=== PATIENT | female | born 1985 ===

== ENCOUNTER 2018-09-25 13:59 | Inpatient (IN) | payer OTHER, MEDICAID, SELFPAY ==
[2018-09-25] VITALS (30 sets, daily range): BP systolic 88–177; BP diastolic 46–125; PULSE 113–139; RESP 12–38; TEMP 36.2–36.7; O2SAT 96–100; BMI 24.5
--- NOTE | 2018-09-25 | DI.RAD.S_ITS ---
PROCEDURE: XR CHEST 1V INDICATIONS: ET TUBE PLACEMENT TECHNIQUE: One view of the chest was acquired. COMPARISON: [facility], , XR CHEST 1V, 09/25/2018, 15:16. FINDINGS: Surgical changes and devices: ET tube tip is approximately 6.7 cm above the onur. Lungs and pleura: Lungs are clear. No pleural effusions or pneumothorax. Mediastinum: Mediastinal contours appear normal. Heart size is normal. Bones and chest wall: No suspicious bony lesions. Overlying soft tissues appear unremarkable. IMPRESSION: ET tube in satisfactory position. No evidence acute pulmonary process. Dictated by: Sergey Steel M.D. on 09/25/2018 at 19:23 Approved by: Sergey Steel M.D. on 09/25/2018 at 19:24
[2018-09-25] MEDS: ALBUTEROL 2.5 MG/3 ML NEB (ADULT) INH ×5 (14:10→22:49)
[2018-09-25] MEDS: ALBUTEROL/IPRATROPIUM 3 ML AMPUL INH ×4 (14:11→22:48)
--- NOTE | 2018-09-25 14:11 | PC.NURSE ---
pt unable to talk related to shortness of breath, will do triage when she is better.
--- NOTE | 2018-09-25 14:13 | ED.ASTHMA ---
HPI - Asthma <REINIER Davidson - Last Filed: 09/25/18 15:59> General Chief Complaint: Asthma Stated Complaint: Asthma attack Time Seen by Provider: 09/25/18 14:09 Source: patient Mode of arrival: ambulatory Limitations: no limitations History of Present Illness HPI Narrative: woke up with wheezing and asthma attack, tried inhaler first, no better, did neb tx, no better MD complaint: asthma attack Onset (ago): hour(s) Severity: severe Context: none known Associated symptoms: none Treatments Prior to Arrival: inhaled bronchodilator Related Data Current Asthma Therapy: inhaled bronchodilator Home Medications Medication Instructions Recorded Confirmed albuterol sulfate 09/25/18 lorazepam 1 mg PO QD-BID PRN 09/25/18 09/25/18 prednisone 09/25/18 Previous Rx's Medication Instructions Recorded clindamycin HCl 150 mg PO Q6H 7 Days #0 cap 01/21/16 albuterol sulfate [Proventil HFA] 0 IH SEE INSTRUCTIONS #2 ea 06/03/16 Allergies Allergy/AdvReac Type Severity Reaction Status Date / Time doxycycline Allergy Mild INFLAMED Unverified 09/15/17 11:45 IV SITE; HIVES tetracycline Allergy Mild RASH Unverified 09/15/17 11:45 hydromorphone AdvReac Mild SHAKINESS/D Unverified 09/15/17 11:45 IZZINESS morphine AdvReac Mild UPSET Unverified 09/15/17 11:45 STOMACH Review of Systems <REINIER Davidson - Last Filed: 09/25/18 15:59> Review of Systems ROS Unobtainable: All systems reviewed & are unremarkable except as noted in HPI and below Constitutional Reports as per HPI, Reports system reviewed and no additional complaints, except as docu, Denies fever(s) and Denies headache(s) Eyes Denies eye discharge, Denies irritation and Denies itchy eyes ENT Ears, Nose, Mouth, and Throat: Reports as per HPI, Denies dental pain, Denies vertigo, Denies dizziness, Denies ear discharge, Reports otalgia, Denies facial pain, Denies headache(s), Denies hearing loss, Denies nasal congestion, Denies nasal discharge, Denies neck pain, Denies sinus pain, Denies sinus pressure and Denies sore throat Cardiovascular Denies dyspnea Respiratory Denies dyspnea Musculoskeletal Denies neck pain Neurologic Denies vertigo, Denies dizziness and Denies headache(s) Allergic/Immunologic Denies itchy eyes Exam <Sharda REINIER Bellamy - Last Filed: 09/25/18 15:59> Initial Vital Signs Initial Vital Signs: Vital Signs Temperature 97.2 F L 09/25/18 14:10 Pulse Rate 124 H 09/25/18 14:10 Respiratory Rate 26 H 09/25/18 14:10 Blood Pressure 149/114 H 09/25/18 14:10 Pulse Oximetry 99 09/25/18 14:10 Const General: cooperative, healthy appearing, comfortable, well developed and well groomed Nutritional Appearance: average body habitus Orientation: alert, awake and oriented x3 HENMT Head: normal to inspection and normocephalic Ears: hearing grossly normal bilaterally, external ears normal, TM's normal bilaterally and mastoids normal Nose: external nose normal and nares normal Face and sinus: normal facial exam, sinuses nontender and face symmetric Mouth: oral mucosae normal, lip normal, tongue normal, oropharynx normal and moist mucous membranes Teeth and gingiva: dentition normal and gingiva normal Throat: posterior oropharynx normal, tonsils normal and uvula midline Eyes General: appearance normal, both eyes and all related structures Visual Dave: normal visual dave by confrontation Eyelids: eyelids normal Conjunctivae: conjunctivae normal Sclera: sclerae normal Pupils: PERRL EOM: EOM intact bilaterally Neck Neck: normal visual inspection, full ROM, no meningeal signs, trachea midline, supple and No lymphadenopathy Chest Chest: normal inspection of the chest Resp Effort & Inspection: normal respiratory effort, not able to speak in complete sentences and labored Auscultation: clear to auscultation bilaterally and wheezes expiratory wheezes, inspiratory wheezes and scattered wheezes Cardio Rate: regular rate and tachycardic (HR 120's) Heart Sounds: S1 normal and S2 normal Back/Spine/Pelvis Cervical Spine: cervical ROM normal Thoracic/Lumbar Spine: thoraco-lumbar ROM normal Skin General: no rashes or lesions noted, elasticity normal, turgor normal and dry skin Neuro General: alert, awake, oriented x3 and meningeal signs present Cognition: normal cognition Speech: speech normal Gait: normal gait Motor: muscle tone normal throughout Sensory Exam: no sensory deficits noted Extrem General: normal to inspection and full ROM Psych Appearance: grossly normal and well kempt Mental Status: mental status grossly normal Speech and Movement: speech and movement normal Mood: congruent mood Affect: normal affect Attitude: cooperative Thought Process: normal Thought Content: normal Judgment: judgment good <Jennyfer Cardoza DO - Last Filed: 09/26/18 07:45> Initial Vital Signs Initial Vital Signs: Vital Signs Temperature 97.2 F L 09/25/18 14:10 Pulse Rate 124 H 09/25/18 14:10 Respiratory Rate 26 H 09/25/18 14:10 Blood Pressure 149/114 H 09/25/18 14:10 Pulse Oximetry 99 09/25/18 14:10 PFSH <REINIER Davidson - Last Filed: 09/25/18 15:59> Medical History Anxiety (Acute) Asthma (Acute) Social History Smoking Status: Current every day smoker alcohol intake: never Social History Smoking Status: Current every day smoker alcohol intake: never Course <REINIER Davidson - Last Filed: 09/25/18 15:59> Course Narrative: RT at bedside upon entering room and already had neb tx going, giving pt 1hr long albuterol with atrovent, PO100% 1420 nurse and RT, pt is starting to have anxiety attack and is requesting theophylline saying that is what helped her in the past 1435 back at bedside with Dr Cardoza, pt's resp are more labored, pt now diaphoretic, audible wheezing/stridoring, and has the triangle neck muscle use attempting to breathe, RT at bedside still, pt will be moved to Room 2 for closer monitoring and Dr Cardoza will assume care at this point Orders Ordered: ED Orders 09/26/18 XR chest 1V Stat Blood Culture Routine 09/26/18 02:15 Basic Metabolic Panel Routine Complete Blood Count AUTO DIFF Routine Lactate (Lactic Acid) Stat Procalcitonin Stat 09/26/18 04:05 Blood Culture Stat 09/26/18 05:16 Arterial Blood Gas Urgent 09/26/18 07:24 CBC [Complete Blood Count AUTO DIFF] Stat Comprehensive Metabolic Panel Stat Albuterol (Ventolin) 2.5 mg INH [id number] PRN PRN Reason: Shortness Of Breath Last Admin: 09/26/18 05:35 Dose: 2.5 mg Admin: 09/26/18 03:26 Dose: 2.5 mg Admin: 09/26/18 00:54 Dose: 2.5 mg Admin: 09/25/18 22:49 Dose: 2.5 mg Admin: 09/25/18 19:58 Dose: 2.5 mg Albuterol/Ipratropium (Duoneb) 3 ml INH [id number] RILEY Last Admin: 09/26/18 07:41 Dose: 3 ml Admin: 09/26/18 03:26 Dose: 3 ml Admin: 09/25/18 22:48 Dose: 3 ml Admin: 09/25/18 19:58 Dose: 3 ml Enoxaparin Sodium (Lovenox) 40 mg SUBCUT DAILY RILEY Famotidine (Pepcid) 20 mg in 50 mls @ 200 mls/hr IV BID RILEY Last Infusion: 09/26/18 07:27 Dose: 0 mls/hr Admin: 09/25/18 22:20 Dose: 200 mls/hr Propofol (Propofol) 1,000 mg in 100 mls @ 2.136 mls/hr IV TITRATE RILEY; Protocol Last Titration: 09/26/18 07:29 Dose: 60 mcg/kg/min, 25.632 mls/hr Admin: 09/26/18 05:54 Dose: 55 mcg/kg/min, 23.496 mls/hr Titration: 09/26/18 05:54 Dose: 55 mcg/kg/min, 23.496 mls/hr Admin: 09/26/18 01:53 Dose: 55 mcg/kg/min, 23.496 mls/hr Titration: 09/26/18 01:53 Dose: 55 mcg/kg/min, 23.496 mls/hr Admin: 09/25/18 22:19 Dose: 55 mcg/kg/min, 23.496 mls/hr Titration: 09/25/18 22:19 Dose: 55 mcg/kg/min, 23.496 mls/hr Titration: 09/25/18 19:50 Dose: 55 mcg/kg/min, 23.496 mls/hr Titration: 09/25/18 19:15 Dose: 40 mcg/kg/min, 17.088 mls/hr Admin: 09/25/18 18:50 Dose: 20 mcg/kg/min, 8.544 mls/hr Sodium Chloride (Normal Saline 0.9%) 1,000 mls @ 125 mls/hr IV CONT RILEY Last Admin: 09/26/18 07:41 Dose: 125 mls/hr Admin: 09/26/18 06:55 Dose: Not Given Methylprednisolone (Solu-Medrol 125 Mg Vial) 80 mg IV Q8H RILEY Last Admin: 09/26/18 02:46 Dose: 80 mg Admin: 09/25/18 20:20 Dose: 80 mg Midazolam HCl (Versed) 2 mg IV Q2H PRN PRN Reason: Agitation Last Admin: 09/26/18 07:15 Dose: 2 mg Admin: 09/26/18 05:07 Dose: 2 mg Morphine Sulfate (Morphine) 2 mg IV Q2HR PRN PRN Reason: pain Last Admin: 09/26/18 00:12 Dose: 2 mg Admin: 09/25/18 19:56 Dose: 2 mg Discontinued Medications Albuterol (Ventolin) 2.5 mg INH NOW ONE Stop: 09/25/18 14:08 Last Admin: 09/25/18 14:10 Dose: 2.5 mg Albuterol (Ventolin) 2.5 mg INH NOW ONE Stop: 09/25/18 14:09 Last Admin: 09/25/18 14:10 Dose: 2.5 mg Albuterol (Ventolin) 2.5 mg INH NOW ONE Stop: 09/25/18 14:10 Last Admin: 09/25/18 14:10 Dose: 2.5 mg Albuterol/Ipratropium (Duoneb) 3 ml INH NOW ONE Stop: 09/25/18 14:10 Last Admin: 09/25/18 14:11 Dose: 3 ml Albuterol/Ipratropium (Duoneb) 3 ml INH NOW ONE Stop: 09/25/18 14:22 Last Admin: 09/25/18 14:22 Dose: 3 ml Albuterol/Ipratropium (Duoneb) 9 ml INH NOW ONE Stop: 09/25/18 14:33 Last Admin: 09/25/18 14:33 Dose: 9 ml Albuterol/Ipratropium (Duoneb) 3 ml INH NOW ONE Stop: 09/25/18 14:43 Fentanyl (Sublimaze) 100 mcg IV NOW ONE Stop: 09/25/18 18:51 Last Admin: 09/25/18 18:51 Dose: 100 mcg Magnesium Sulfate (Magnesium Sulfate) 2 gm in 50 mls @ 25 mls/hr IV NOW ONE Stop: 09/25/18 16:41 Last Infusion: 09/25/18 17:20 Dose: 25 mls/hr Admin: 09/25/18 15:05 Dose: 25 mls/hr Sodium Chloride (Normal Saline 0.9%) 1,000 mls @ 1,000 mls/hr IV BOLUS ONE Stop: 09/25/18 15:41 Last Infusion: 09/25/18 17:20 Dose: 250 mls/hr Admin: 09/25/18 15:04 Dose: 1,000 mls/hr Sodium Chloride (Normal Saline 0.9%) 1,000 mls @ 100 mls/hr IV CONT RILEY Last Infusion: 09/26/18 07:34 Dose: 0 mls/hr Admin: 09/26/18 06:00 Dose: 100 mls/hr Admin: 09/25/18 20:13 Dose: Not Given Ceftriaxone Sodium/Dextrose (Rocephin) 2 gm in 50 mls @ 100 mls/hr IV Q24H [facility] Last Infusion: 09/26/18 07:28 Dose: 0 mls/hr Admin: 09/26/18 04:21 Dose: 100 mls/hr Sodium Chloride (Normal Saline 0.9%) 1,000 mls @ 1,000 mls/hr IV BOLUS ONE Stop: 09/26/18 04:42 Last Infusion: 09/26/18 07:34 Dose: 0 mls/hr Admin: 09/26/18 04:12 Dose: 1,000 mls/hr Ceftriaxone Sodium 2,000 mg/ (Sodium Chloride) 100 mls @ 200 mls/hr IV Q24H [facility] Last Admin: 09/26/18 07:28 Dose: Not Given Lorazepam (Ativan) 1 mg IV NOW ONE Stop: 09/25/18 14:25 Last Admin: 09/25/18 14:28 Dose: Not Given Methylprednisolone (Solu-Medrol 125 Mg Vial) 125 mg IV NOW ONE Stop: 09/25/18 14:15 Last Admin: 09/25/18 14:23 Dose: 125 mg Midazolam HCl (Versed) 2 mg IV Q2H PRN PRN Reason: Agitation Last Admin: 09/26/18 02:47 Dose: 2 mg Admin: 09/26/18 00:52 Dose: 2 mg Admin: 09/25/18 22:49 Dose: 2 mg Admin: 09/25/18 20:46 Dose: 2 mg Propofol (Diprivan) 200 mg IV NOW ONE Stop: 09/25/18 18:46 Last Admin: 09/25/18 18:45 Dose: 200 mg Rocuronium [place] (Zemuron) 20 mg IV NOW ONE Stop: 09/25/18 18:50 Last Admin: 09/25/18 18:49 Dose: 20 mg Succinylcholine Chloride (Quelicin) 160 mg IV NOW ONE Stop: 09/25/18 18:46 Last Admin: 09/25/18 18:45 Dose: 160 mg Theophylline (Respbid Er) 300 mg PO NOW ONE Stop: 09/25/18 17:27 Last Admin: 09/25/18 17:46 Dose: 300 mg Vital Signs - 8 hr 09/26/18 00:00 09/26/18 01:37 09/26/18 02:03 Temperature 97.3 F L 97.8 F 97.6 F Pulse Rate 112 H 117 H 113 H Respiratory Rate 15 15 15 Blood Pressure 103/54 L 99/58 L 99/50 L Pulse Oximetry 100 100 100 09/26/18 03:00 09/26/18 04:03 09/26/18 05:08 Temperature 97.7 F Pulse Rate 116 H 119 H 123 H Respiratory Rate 17 21 Blood Pressure 104/51 L 109/67 122/76 Pulse Oximetry 100 99 100 09/26/18 06:03 Temperature 98.1 F Pulse Rate 121 H Respiratory Rate 15 Blood Pressure 113/48 L Pulse Oximetry 100 <Jennyfer Cardoza, - Last Filed: 09/26/18 07:45> Orders Ordered: ED Orders 09/26/18 XR chest 1V Stat Blood Culture Routine 09/26/18 02:15 Basic Metabolic Panel Routine Complete Blood Count AUTO DIFF Routine Lactate (Lactic Acid) Stat Procalcitonin Stat 09/26/18 04:05 Blood Culture Stat 09/26/18 05:16 Arterial Blood Gas Urgent 09/26/18 07:24 CBC [Complete Blood Count AUTO DIFF] Stat Comprehensive Metabolic Panel Stat Albuterol (Ventolin) 2.5 mg INH [id number] PRN PRN Reason: Shortness Of Breath Last Admin: 09/26/18 05:35 Dose: 2.5 mg Admin: 09/26/18 03:26 Dose: 2.5 mg Admin: 09/26/18 00:54 Dose: 2.5 mg Admin: 09/25/18 22:49 Dose: 2.5 mg Admin: 09/25/18 19:58 Dose: 2.5 mg Albuterol/Ipratropium (Duoneb) 3 ml INH [id number] RILEY Last Admin: 09/26/18 07:41 Dose: 3 ml Admin: 09/26/18 03:26 Dose: 3 ml Admin: 09/25/18 22:48 Dose: 3 ml Admin: 09/25/18 19:58 Dose: 3 ml Enoxaparin Sodium (Lovenox) 40 mg SUBCUT DAILY RILEY Famotidine (Pepcid) 20 mg in 50 mls @ 200 mls/hr IV BID RILEY Last Infusion: 09/26/18 07:27 Dose: 0 mls/hr Admin: 09/25/18 22:20 Dose: 200 mls/hr Propofol (Propofol) 1,000 mg in 100 mls @ 2.136 mls/hr IV TITRATE RILEY; Protocol Last Titration: 09/26/18 07:29 Dose: 60 mcg/kg/min, 25.632 mls/hr Admin: 09/26/18 05:54 Dose: 55 mcg/kg/min, 23.496 mls/hr Titration: 09/26/18 05:54 Dose: 55 mcg/kg/min, 23.496 mls/hr Admin: 09/26/18 01:53 Dose: 55 mcg/kg/min, 23.496 mls/hr Titration: 09/26/18 01:53 Dose: 55 mcg/kg/min, 23.496 mls/hr Admin: 09/25/18 22:19 Dose: 55 mcg/kg/min, 23.496 mls/hr Titration: 09/25/18 22:19 Dose: 55 mcg/kg/min, 23.496 mls/hr Titration: 09/25/18 19:50 Dose: 55 mcg/kg/min, 23.496 mls/hr Titration: 09/25/18 19:15 Dose: 40 mcg/kg/min, 17.088 mls/hr Admin: 09/25/18 18:50 Dose: 20 mcg/kg/min, 8.544 mls/hr Sodium Chloride (Normal Saline 0.9%) 1,000 mls @ 125 mls/hr IV CONT RILEY Last Admin: 09/26/18 07:41 Dose: 125 mls/hr Admin: 09/26/18 06:55 Dose: Not Given Methylprednisolone (Solu-Medrol 125 Mg Vial) 80 mg IV Q8H RILEY Last Admin: 09/26/18 02:46 Dose: 80 mg Admin: 09/25/18 20:20 Dose: 80 mg Midazolam HCl (Versed) 2 mg IV Q2H PRN PRN Reason: Agitation Last Admin: 09/26/18 07:15 Dose: 2 mg Admin: 09/26/18 05:07 Dose: 2 mg Morphine Sulfate (Morphine) 2 mg IV Q2HR PRN PRN Reason: pain Last Admin: 09/26/18 00:12 Dose: 2 mg Admin: 09/25/18 19:56 Dose: 2 mg Discontinued Medications Albuterol (Ventolin) 2.5 mg INH NOW ONE Stop: 09/25/18 14:08 Last Admin: 09/25/18 14:10 Dose: 2.5 mg Albuterol (Ventolin) 2.5 mg INH NOW ONE Stop: 09/25/18 14:09 Last Admin: 09/25/18 14:10 Dose: 2.5 mg Albuterol (Ventolin) 2.5 mg INH NOW ONE Stop: 09/25/18 14:10 Last Admin: 09/25/18 14:10 Dose: 2.5 mg Albuterol/Ipratropium (Duoneb) 3 ml INH NOW ONE Stop: 09/25/18 14:10 Last Admin: 09/25/18 14:11 Dose: 3 ml Albuterol/Ipratropium (Duoneb) 3 ml INH NOW ONE Stop: 09/25/18 14:22 Last Admin: 09/25/18 14:22 Dose: 3 ml Albuterol/Ipratropium (Duoneb) 9 ml INH NOW ONE Stop: 09/25/18 14:33 Last Admin: 09/25/18 14:33 Dose: 9 ml Albuterol/Ipratropium (Duoneb) 3 ml INH NOW ONE Stop: 09/25/18 14:43 Fentanyl (Sublimaze) 100 mcg IV NOW ONE Stop: 09/25/18 18:51 Last Admin: 09/25/18 18:51 Dose: 100 mcg Magnesium Sulfate (Magnesium Sulfate) 2 gm in 50 mls @ 25 mls/hr IV NOW ONE Stop: 09/25/18 16:41 Last Infusion: 09/25/18 17:20 Dose: 25 mls/hr Admin: 09/25/18 15:05 Dose: 25 mls/hr Sodium Chloride (Normal Saline 0.9%) 1,000 mls @ 1,000 mls/hr IV BOLUS ONE Stop: 09/25/18 15:41 Last Infusion: 09/25/18 17:20 Dose: 250 mls/hr Admin: 09/25/18 15:04 Dose: 1,000 mls/hr Sodium Chloride (Normal Saline 0.9%) 1,000 mls @ 100 mls/hr IV CONT RILEY Last Infusion: 09/26/18 07:34 Dose: 0 mls/hr Admin: 09/26/18 06:00 Dose: 100 mls/hr Admin: 09/25/18 20:13 Dose: Not Given Ceftriaxone Sodium/Dextrose (Rocephin) 2 gm in 50 mls @ 100 mls/hr IV Q24H RILEY Last Infusion: 09/26/18 07:28 Dose: 0 mls/hr Admin: 09/26/18 04:21 Dose: 100 mls/hr Sodium Chloride (Normal Saline 0.9%) 1,000 mls @ 1,000 mls/hr IV BOLUS ONE Stop: 09/26/18 04:42 Last Infusion: 09/26/18 07:34 Dose: 0 mls/hr Admin: 09/26/18 04:12 Dose: 1,000 mls/hr Ceftriaxone Sodium 2,000 mg/ (Sodium Chloride) 100 mls @ 200 mls/hr IV Q24H [facility] Last Admin: 09/26/18 07:28 Dose: Not Given Lorazepam (Ativan) 1 mg IV NOW ONE Stop: 09/25/18 14:25 Last Admin: 09/25/18 14:28 Dose: Not Given Methylprednisolone (Solu-Medrol 125 Mg Vial) 125 mg IV NOW ONE Stop: 09/25/18 14:15 Last Admin: 09/25/18 14:23 Dose: 125 mg Midazolam HCl (Versed) 2 mg IV Q2H PRN PRN Reason: Agitation Last Admin: 09/26/18 02:47 Dose: 2 mg Admin: 09/26/18 00:52 Dose: 2 mg Admin: 09/25/18 22:49 Dose: 2 mg Admin: 09/25/18 20:46 Dose: 2 mg Propofol (Diprivan) 200 mg IV NOW ONE Stop: 09/25/18 18:46 Last Admin: 09/25/18 18:45 Dose: 200 mg Rocuronium [place] (Zemuron) 20 mg IV NOW ONE Stop: 09/25/18 18:50 Last Admin: 09/25/18 18:49 Dose: 20 mg Succinylcholine Chloride (Quelicin) 160 mg IV NOW ONE Stop: 09/25/18 18:46 Last Admin: 09/25/18 18:45 Dose: 160 mg Theophylline (Respbid Er) 300 mg PO NOW ONE Stop: 09/25/18 17:27 Last Admin: 09/25/18 17:46 Dose: 300 mg Vital Signs - 8 hr 09/26/18 00:00 09/26/18 01:37 09/26/18 02:03 Temperature 97.3 F L 97.8 F 97.6 F Pulse Rate 112 H 117 H 113 H Respiratory Rate 15 15 15 Blood Pressure 103/54 L 99/58 L 99/50 L Pulse Oximetry 100 100 100 09/26/18 03:00 09/26/18 04:03 09/26/18 05:08 Temperature 97.7 F Pulse Rate 116 H 119 H 123 H Respiratory Rate 17 21 Blood Pressure 104/51 L 109/67 122/76 Pulse Oximetry 100 99 100 09/26/18 06:03 Temperature 98.1 F Pulse Rate 121 H Respiratory Rate 15 Blood Pressure 113/48 L Pulse Oximetry 100 MDM - Asthma <Sharda Bellamy, REINIER - Last Filed: 09/25/18 15:59> Differential Diagnosis Differential diagnosis: Likely Acute exacerbation, Status asthmaticus, Acute asthmatic bronchitis and Pneumonia Lab Data Result diagrams: 09/26/18 07:24 09/26/18 02:15 Lab Results 09/25/18 09/25/18 09/25/18 Range/Units 01:04 14:15 14:15 WBC 17.5 H (4.5-11.0) X10^3/uL RBC 4.72 (4.0-5.2) X10^6/uL Hgb 13.8 (12.0-16.0) g/dL Hct 41.8 (36-46) % MCV 88.7 (80-100) fL MCH 29.2 (26-34) PG MCHC 32.9 (30-36) % RDW 14.1 (11.6-14.8) % Plt Count 424 H (150-400) X10^3/uL Neut % (Auto) 72.7 (50-75) % Lymph % (Auto) 13.8 L (25-40) % Williamson % (Auto) 6.6 (3-14) % Eos % (Auto) 6.2 H (2-4) % Baso % (Auto) 0.7 (0-2) % Neut # (Auto) 79385 H (9216-8082) /uL Lymph # (Auto) 2400 (8613-9409) /uL Williamson # (Auto) 1200 H (0-900) /uL Eos # (Auto) 1100 H (0-450) /uL Baso # (Auto) 100 (0-100) /uL ABG pH 7.24 L* (7.35-7.45) ABG pCO2 39.3 (35-45) mmHg ABG pO2 143 H (80-100) mmHg ABG HCO3 17 L (22-26) mmol/L ABG Total CO2 18 L (21-31) mmol/L ABG O2 Saturation 99 (95-100) % ABG Base Excess -11.0 L (-2-2) mmol/L FiO2 30 Sodium 142 (137-145) mmol/L Potassium 3.6 (3.4-5.1) mmol/L Chloride 108 H (98-107) mmol/L Carbon Dioxide 25 (22-32) mmol/L BUN 12 (7-17) mg/dL Creatinine 0.70 (0.52-1.04) mg/dL Estimated GFR > 60.0 (>60) mL/min BUN/Creatinine Ratio 17.1 (6-22) Glucose 109 H (70-100) mg/dL Lactate (0.7-2.1) mmol/L Calcium 8.7 (8.4-10.2) mg/dL Magnesium 2.1 (1.6-2.3) mg/dL Total Creatine Kinase 45 (30-135) U/L CK-MB (CK-2) TNP CK-MB (CK-2) Rel Index TNP Troponin I < 0.012 (0.01-0.034) ng/mL Procalcitonin (<0.5) ng/mL HCG, Quant < 2.39 mIU/mL Urine Color Urine Appearance Urine pH (4.5-8.0) Ur Specific [facility] (1.000-1.035) Urine Protein (Negative) Urine Glucose (UA) (Negative) g/dL Urine Ketones (NEGATIVE) Urine Occult Blood (Negative) Urine Nitrate (Negative) Urine Bilirubin (NEGATIVE) Urine Urobilinogen (0.2) E.U./dL Ur Leukocyte Esterase (NEGATIVE) Urine RBC (0-5/HPF) Urine WBC (0-5/HPF) Ur Squamous Epith Cells (0-5/HPF) Urine Bacteria (None) Ur Culture Indicated? Micro UA Comment Urine Test (Negative) Nasal Screen MRSA (PCR) (Negative) Urine Opiates Screen (Negative) Ur Oxycodone Screen (Negative) Urine Methadone Screen (Negative) Ur Barbiturates Screen (Negative) U Tricyclic Antidepress (Negative) Ur Phencyclidine Scrn (Negative) Ur Amphetamines Screen (Negative) U Methamphetamines Scrn (Negative) Ur MDMA Scrn (Ecstasy) (Negative) U Benzodiazepines Scrn (Negative) Urine Cocaine Screen (Negative) U Marijuana (THC) Screen (Negative) Influenza A & B (PCR) (Negative) 09/25/18 09/25/18 09/25/18 Range/Units 14:42 15:00 16:02 WBC (4.5-11.0) X10^3/uL RBC (4.0-5.2) X10^6/uL Hgb (12.0-16.0) g/dL Hct (36-46) % MCV (80-100) fL MCH (26-34) PG MCHC (30-36) % RDW (11.6-14.8) % Plt Count (150-400) X10^3/uL Neut % (Auto) (50-75) % Lymph % (Auto) (25-40) % Williamson % (Auto) (3-14) % Eos % (Auto) (2-4) % Baso % (Auto) (0-2) % Neut # (Auto) (4103-7612) /uL Lymph # (Auto) (0678-0561) /uL [place] # (Auto) (0-900) /uL Eos # (Auto) (0-450) /uL Baso # (Auto) (0-100) /uL ABG pH 7.23 L* 7.24 L* (7.35-7.45) ABG pCO2 59.2 H 57.4 H (35-45) mmHg ABG pO2 254 H* 149 H (80-100) mmHg ABG HCO3 25 25 (22-26) mmol/L ABG Total CO2 26 26 (21-31) mmol/L ABG O2 Saturation 100 99 (95-100) % ABG Base Excess -3.0 L -3.0 L (-2-2) mmol/L FiO2 0.50 0.35 Sodium (137-145) mmol/L Potassium (3.4-5.1) mmol/L Chloride (98-107) mmol/L Carbon Dioxide (22-32) mmol/L BUN (7-17) mg/dL Creatinine (0.52-1.04) mg/dL Estimated GFR (>60) mL/min BUN/Creatinine Ratio (6-22) Glucose (70-100) mg/dL Lactate 1.0 (0.7-2.1) mmol/L Calcium (8.4-10.2) mg/dL Magnesium (1.6-2.3) mg/dL Total Creatine Kinase (30-135) U/L CK-MB (CK-2) CK-MB (CK-2) Rel Index Troponin I (0.01-0.034) ng/mL Procalcitonin (<0.5) ng/mL HCG, Quant mIU/mL Urine Color Urine Appearance Urine pH (4.5-8.0) Ur Specific [facility] (1.000-1.035) Urine Protein (Negative) Urine Glucose (UA) (Negative) g/dL Urine Ketones (NEGATIVE) Urine Occult Blood (Negative) Urine Nitrate (Negative) Urine Bilirubin (NEGATIVE) Urine Urobilinogen (0.2) E.U./dL Ur Leukocyte Esterase (NEGATIVE) Urine RBC (0-5/HPF) Urine WBC (0-5/HPF) Ur Squamous Epith Cells (0-5/HPF) Urine Bacteria (None) Ur Culture Indicated? Micro UA Comment Urine Test (Negative) Nasal Screen MRSA (PCR) (Negative) Urine Opiates Screen (Negative) Ur Oxycodone Screen (Negative) Urine Methadone Screen (Negative) Ur Barbiturates Screen (Negative) U Tricyclic Antidepress (Negative) Ur Phencyclidine Scrn (Negative) Ur Amphetamines Screen (Negative) U Methamphetamines Scrn (Negative) Ur MDMA Scrn (Ecstasy) (Negative) U Benzodiazepines Scrn (Negative) Urine Cocaine Screen (Negative) U Marijuana (THC) Screen (Negative) Influenza A & B (PCR) (Negative) 09/25/18 09/25/18 09/25/18 Range/Units 17:17 19:10 19:10 WBC (4.5-11.0) X10^3/uL RBC (4.0-5.2) X10^6/uL Hgb (12.0-16.0) g/dL Hct (36-46) % MCV (80-100) fL MCH (26-34) PG MCHC (30-36) % RDW (11.6-14.8) % Plt Count (150-400) X10^3/uL Neut % (Auto) (50-75) % Lymph % (Auto) (25-40) % Williamson % (Auto) (3-14) % Eos % (Auto) (2-4) % Baso % (Auto) (0-2) % Neut # (Auto) (8453-0107) /uL Lymph # (Auto) (7635-9881) /uL Williamson # (Auto) (0-900) /uL Eos # (Auto) (0-450) /uL Baso # (Auto) (0-100) /uL ABG pH (7.35-7.45) ABG pCO2 (35-45) mmHg ABG pO2 (80-100) mmHg ABG HCO3 (22-26) mmol/L ABG Total CO2 (21-31) mmol/L ABG O2 Saturation (95-100) % ABG Base Excess (-2-2) mmol/L FiO2 Sodium (137-145) mmol/L Potassium (3.4-5.1) mmol/L Chloride (98-107) mmol/L Carbon Dioxide (22-32) mmol/L BUN (7-17) mg/dL Creatinine (0.52-1.04) mg/dL Estimated GFR (>60) mL/min BUN/Creatinine Ratio (6-22) Glucose (70-100) mg/dL Lactate (0.7-2.1) mmol/L Calcium (8.4-10.2) mg/dL Magnesium (1.6-2.3) mg/dL Total Creatine Kinase (30-135) U/L CK-MB (CK-2) CK-MB (CK-2) Rel Index Troponin I (0.01-0.034) ng/mL Procalcitonin (<0.5) ng/mL HCG, Quant mIU/mL Urine Color Yellow Urine Appearance Slightly cloudy Urine pH 5.5 (4.5-8.0) Ur Specific [facility] >=1.030 H (1.000-1.035) Urine Protein Negative (Negative) Urine Glucose (UA) Trace H (Negative) g/dL Urine Ketones Negative (NEGATIVE) Urine Occult Blood Trace-lysed (Negative) Urine Nitrate Positive H (Negative) Urine Bilirubin Negative (NEGATIVE) Urine Urobilinogen 0.2 (0.2) E.U./dL Ur Leukocyte Esterase Trace H (NEGATIVE) Urine RBC None seen (0-5/HPF) Urine WBC 0-1/hpf (0-5/HPF) Ur Squamous Epith Cells 1-5 /hpf (0-5/HPF) Urine Bacteria Many (>30) H (None) Ur Culture Indicated? Specimen cultured Micro UA Comment . Urine Test Negative (Negative) Nasal Screen MRSA (PCR) Positive for mrsa H (Negative) Urine Opiates Screen (Negative) Ur Oxycodone Screen (Negative) Urine Methadone Screen (Negative) Ur Barbiturates Screen (Negative) U Tricyclic Antidepress (Negative) Ur Phencyclidine Scrn (Negative) Ur Amphetamines Screen (Negative) U Methamphetamines Scrn (Negative) Ur MDMA Scrn (Ecstasy) (Negative) U Benzodiazepines Scrn (Negative) Urine Cocaine Screen (Negative) U Marijuana (THC) Screen (Negative) Influenza A & B (PCR) (Negative) 09/25/18 09/25/18 09/25/18 Range/Units 19:10 19:15 20:12 WBC (4.5-11.0) X10^3/uL RBC (4.0-5.2) X10^6/uL Hgb (12.0-16.0) g/dL Hct (36-46) % MCV (80-100) fL MCH (26-34) PG MCHC (30-36) % RDW (11.6-14.8) % Plt Count (150-400) X10^3/uL Neut % (Auto) (50-75) % Lymph % (Auto) (25-40) % Williamson % (Auto) (3-14) % Eos % (Auto) (2-4) % Baso % (Auto) (0-2) % Neut # (Auto) (2768-6499) /uL Lymph # (Auto) (7139-6170) /uL Williamson # (Auto) (0-900) /uL Eos # (Auto) (0-450) /uL Baso # (Auto) (0-100) /uL ABG pH 7.22 L* (7.35-7.45) ABG pCO2 51.6 H (35-45) mmHg ABG pO2 92 (80-100) mmHg ABG HCO3 21 L (22-26) mmol/L ABG Total CO2 23 (21-31) mmol/L ABG O2 Saturation 95 (95-100) % ABG Base Excess -6.0 L (-2-2) mmol/L FiO2 30 Sodium (137-145) mmol/L Potassium (3.4-5.1) mmol/L Chloride (98-107) mmol/L Carbon Dioxide (22-32) mmol/L BUN (7-17) mg/dL Creatinine (0.52-1.04) mg/dL Estimated GFR (>60) mL/min BUN/Creatinine Ratio (6-22) Glucose (70-100) mg/dL Lactate (0.7-2.1) mmol/L Calcium (8.4-10.2) mg/dL Magnesium (1.6-2.3) mg/dL Total Creatine Kinase (30-135) U/L CK-MB (CK-2) CK-MB (CK-2) Rel Index Troponin I (0.01-0.034) ng/mL Procalcitonin (<0.5) ng/mL HCG, Quant mIU/mL Urine Color Urine Appearance Urine pH (4.5-8.0) Ur Specific [facility] (1.000-1.035) Urine Protein (Negative) Urine Glucose (UA) (Negative) g/dL Urine Ketones (NEGATIVE) Urine Occult Blood (Negative) Urine Nitrate (Negative) Urine Bilirubin (NEGATIVE) Urine Urobilinogen (0.2) E.U./dL Ur Leukocyte Esterase (NEGATIVE) Urine RBC (0-5/HPF) Urine WBC (0-5/HPF) Ur Squamous Epith Cells (0-5/HPF) Urine Bacteria (None) Ur Culture Indicated? Micro UA Comment Urine Test (Negative) Nasal Screen MRSA (PCR) (Negative) Urine Opiates Screen Negative (Negative) Ur Oxycodone Screen Negative (Negative) Urine Methadone Screen Negative (Negative) Ur Barbiturates Screen Negative (Negative) U Tricyclic Antidepress Negative (Negative) Ur Phencyclidine Scrn Negative (Negative) Ur Amphetamines Screen Positive H (Negative) U Methamphetamines Scrn Positive H (Negative) Ur MDMA Scrn (Ecstasy) Negative (Negative) U Benzodiazepines Scrn Negative (Negative) Urine Cocaine Screen Negative (Negative) U Marijuana (THC) Screen Negative (Negative) Influenza A & B (PCR) Negative (Negative) 09/26/18 09/26/18 09/26/18 Range/Units 02:15 02:15 02:15 WBC 16.3 H (4.5-11.0) X10^3/uL RBC 4.46 (4.0-5.2) X10^6/uL Hgb 13.3 (12.0-16.0) g/dL Hct 39.2 (36-46) % MCV 87.9 (80-100) fL MCH 29.8 (26-34) PG MCHC 33.9 (30-36) % RDW 14.4 (11.6-14.8) % Plt Count 374 (150-400) X10^3/uL Neut % (Auto) 94.6 H D (50-75) % Lymph % (Auto) 3.5 L (25-40) % Williamson % (Auto) 1.6 L (3-14) % Eos % (Auto) 0.0 L (2-4) % Baso % (Auto) 0.3 (0-2) % Neut # (Auto) 67994 H (9813-5762) /uL Lymph # (Auto) 600 L (6479-4474) /uL Williamson # (Auto) 300 (0-900) /uL Eos # (Auto) 0 (0-450) /uL Baso # (Auto) 0 (0-100) /uL ABG pH (7.35-7.45) ABG pCO2 (35-45) mmHg ABG pO2 (80-100) mmHg ABG HCO3 (22-26) mmol/L ABG Total CO2 (21-31) mmol/L ABG O2 Saturation (95-100) % ABG Base Excess (-2-2) mmol/L FiO2 Sodium 139 (137-145) mmol/L Potassium 4.5 (3.4-5.1) mmol/L Chloride 108 H (98-107) mmol/L Carbon Dioxide 17 L (22-32) mmol/L BUN 10 (7-17) mg/dL Creatinine 0.60 (0.52-1.04) mg/dL Estimated GFR > 60.0 (>60) mL/min BUN/Creatinine Ratio 16.7 (6-22) Glucose 172 H (70-100) mg/dL Lactate (0.7-2.1) mmol/L Calcium 8.6 (8.4-10.2) mg/dL Magnesium (1.6-2.3) mg/dL Total Creatine Kinase (30-135) U/L CK-MB (CK-2) CK-MB (CK-2) Rel Index Troponin I (0.01-0.034) ng/mL Procalcitonin < 0.05 (<0.5) ng/mL HCG, Quant mIU/mL Urine Color Urine Appearance Urine pH (4.5-8.0) Ur Specific [facility] (1.000-1.035) Urine Protein (Negative) Urine Glucose (UA) (Negative) g/dL Urine Ketones (NEGATIVE) Urine Occult Blood (Negative) Urine Nitrate (Negative) Urine Bilirubin (NEGATIVE) Urine Urobilinogen (0.2) E.U./dL Ur Leukocyte Esterase (NEGATIVE) Urine RBC (0-5/HPF) Urine WBC (0-5/HPF) Ur Squamous Epith Cells (0-5/HPF) Urine Bacteria (None) Ur Culture Indicated? Micro UA Comment Urine Test (Negative) Nasal Screen MRSA (PCR) (Negative) Urine Opiates Screen (Negative) Ur Oxycodone Screen (Negative) Urine Methadone Screen (Negative) Ur Barbiturates Screen (Negative) U Tricyclic Antidepress (Negative) Ur Phencyclidine Scrn (Negative) Ur Amphetamines Screen (Negative) U Methamphetamines Scrn (Negative) Ur MDMA Scrn (Ecstasy) (Negative) U Benzodiazepines Scrn (Negative) Urine Cocaine Screen (Negative) U Marijuana (THC) Screen (Negative) Influenza A & B (PCR) (Negative) 09/26/18 09/26/18 09/26/18 Range/Units 02:15 04:15 05:16 WBC (4.5-11.0) X10^3/uL RBC (4.0-5.2) X10^6/uL Hgb (12.0-16.0) g/dL Hct (36-46) % MCV (80-100) fL MCH (26-34) PG MCHC (30-36) % RDW (11.6-14.8) % Plt Count (150-400) X10^3/uL Neut % (Auto) (50-75) % Lymph % (Auto) (25-40) % Williamson % (Auto) (3-14) % Eos % (Auto) (2-4) % Baso % (Auto) (0-2) % Neut # (Auto) (9160-7526) /uL Lymph # (Auto) (1953-8245) /uL Williamson # (Auto) (0-900) /uL Eos # (Auto) (0-450) /uL Baso # (Auto) (0-100) /uL ABG pH 7.21 L* (7.35-7.45) ABG pCO2 32.8 L (35-45) mmHg ABG pO2 124 H (80-100) mmHg ABG HCO3 13 L (22-26) mmol/L ABG Total CO2 14 L (21-31) mmol/L ABG O2 Saturation 98 (95-100) % ABG Base Excess -15.0 L (-2-2) mmol/L FiO2 30 Sodium (137-145) mmol/L Potassium (3.4-5.1) mmol/L Chloride (98-107) mmol/L Carbon Dioxide (22-32) mmol/L BUN (7-17) mg/dL Creatinine (0.52-1.04) mg/dL Estimated GFR (>60) mL/min BUN/Creatinine Ratio (6-22) Glucose (70-100) mg/dL Lactate 8.1 H 7.8 H (0.7-2.1) mmol/L Calcium (8.4-10.2) mg/dL Magnesium (1.6-2.3) mg/dL Total Creatine Kinase (30-135) U/L CK-MB (CK-2) CK-MB (CK-2) Rel Index Troponin I (0.01-0.034) ng/mL Procalcitonin (<0.5) ng/mL HCG, Quant mIU/mL Urine Color Urine Appearance Urine pH (4.5-8.0) Ur Specific [facility] (1.000-1.035) Urine Protein (Negative) Urine Glucose (UA) (Negative) g/dL Urine Ketones (NEGATIVE) Urine Occult Blood (Negative) Urine Nitrate (Negative) Urine Bilirubin (NEGATIVE) Urine Urobilinogen (0.2) E.U./dL Ur Leukocyte Esterase (NEGATIVE) Urine RBC (0-5/HPF) Urine WBC (0-5/HPF) Ur Squamous Epith Cells (0-5/HPF) Urine Bacteria (None) Ur Culture Indicated? Micro UA Comment Urine Test (Negative) Nasal Screen MRSA (PCR) (Negative) Urine Opiates Screen (Negative) Ur Oxycodone Screen (Negative) Urine Methadone Screen (Negative) Ur Barbiturates Screen (Negative) U Tricyclic Antidepress (Negative) Ur Phencyclidine Scrn (Negative) Ur Amphetamines Screen (Negative) U Methamphetamines Scrn (Negative) Ur MDMA Scrn (Ecstasy) (Negative) U Benzodiazepines Scrn (Negative) Urine Cocaine Screen (Negative) U Marijuana (THC) Screen (Negative) Influenza A & B (PCR) (Negative) 09/26/18 Range/Units 07:24 WBC 18.9 H (4.5-11.0) X10^3/uL RBC 4.20 (4.0-5.2) X10^6/uL Hgb 12.1 (12.0-16.0) g/dL Hct 38.1 (36-46) % MCV 90.8 (80-100) fL MCH 28.8 (26-34) PG MCHC 31.7 (30-36) % RDW 14.6 (11.6-14.8) % Plt Count 334 (150-400) X10^3/uL Neut % (Auto) 93.2 H (50-75) % Lymph % (Auto) 3.5 L (25-40) % Williamson % (Auto) 3.2 (3-14) % Eos % (Auto) 0.0 L (2-4) % Baso % (Auto) 0.1 (0-2) % Neut # (Auto) 33853 H (2919-5849) /uL Lymph # (Auto) 700 L (6138-7710) /uL Williamson # (Auto) 600 (0-900) /uL Eos # (Auto) 0 (0-450) /uL Baso # (Auto) 0 (0-100) /uL ABG pH (7.35-7.45) ABG pCO2 (35-45) mmHg ABG pO2 (80-100) mmHg ABG HCO3 (22-26) mmol/L ABG Total CO2 (21-31) mmol/L ABG O2 Saturation (95-100) % ABG Base Excess (-2-2) mmol/L FiO2 Sodium (137-145) mmol/L Potassium (3.4-5.1) mmol/L Chloride (98-107) mmol/L Carbon Dioxide (22-32) mmol/L BUN (7-17) mg/dL Creatinine (0.52-1.04) mg/dL Estimated GFR (>60) mL/min BUN/Creatinine Ratio (6-22) Glucose (70-100) mg/dL Lactate (0.7-2.1) mmol/L Calcium (8.4-10.2) mg/dL Magnesium (1.6-2.3) mg/dL Total Creatine Kinase (30-135) U/L CK-MB (CK-2) CK-MB (CK-2) Rel Index Troponin I (0.01-0.034) ng/mL Procalcitonin (<0.5) ng/mL HCG, Quant mIU/mL Urine Color Urine Appearance Urine pH (4.5-8.0) Ur Specific [facility] (1.000-1.035) Urine Protein (Negative) Urine Glucose (UA) (Negative) g/dL Urine Ketones (NEGATIVE) Urine Occult Blood (Negative) Urine Nitrate (Negative) Urine Bilirubin (NEGATIVE) Urine Urobilinogen (0.2) E.U./dL Ur Leukocyte Esterase (NEGATIVE) Urine RBC (0-5/HPF) Urine WBC (0-5/HPF) Ur Squamous Epith Cells (0-5/HPF) Urine Bacteria (None) Ur Culture Indicated? Micro UA Comment Urine Test (Negative) Nasal Screen MRSA (PCR) (Negative) Urine Opiates Screen (Negative) Ur Oxycodone Screen (Negative) Urine Methadone Screen (Negative) Ur Barbiturates Screen (Negative) U Tricyclic Antidepress (Negative) Ur Phencyclidine Scrn (Negative) Ur Amphetamines Screen (Negative) U Methamphetamines Scrn (Negative) Ur MDMA Scrn (Ecstasy) (Negative) U Benzodiazepines Scrn (Negative) Urine Cocaine Screen (Negative) U Marijuana (THC) Screen (Negative) Influenza A & B (PCR) (Negative) <Jennyfer Cardoza, - Last Filed: 09/26/18 07:45> Lab Data Lab Results 09/25/18 09/25/18 09/25/18 Range/Units 01:04 14:15 14:15 WBC 17.5 H (4.5-11.0) X10^3/uL RBC 4.72 (4.0-5.2) X10^6/uL Hgb 13.8 (12.0-16.0) g/dL Hct 41.8 (36-46) % MCV 88.7 (80-100) fL MCH 29.2 (26-34) PG MCHC 32.9 (30-36) % RDW 14.1 (11.6-14.8) % Plt Count 424 H (150-400) X10^3/uL Neut % (Auto) 72.7 (50-75) % Lymph % (Auto) 13.8 L (25-40) % Williamson % (Auto) 6.6 (3-14) % Eos % (Auto) 6.2 H (2-4) % Baso % (Auto) 0.7 (0-2) % Neut # (Auto) 40707 H (3107-3331) /uL Lymph # (Auto) 2400 (1763-4122) /uL Williamson # (Auto) 1200 H (0-900) /uL Eos # (Auto) 1100 H (0-450) /uL Baso # (Auto) 100 (0-100) /uL ABG pH 7.24 L* (7.35-7.45) ABG pCO2 39.3 (35-45) mmHg ABG pO2 143 H (80-100) mmHg ABG HCO3 17 L (22-26) mmol/L ABG Total CO2 18 L (21-31) mmol/L ABG O2 Saturation 99 (95-100) % ABG Base Excess -11.0 L (-2-2) mmol/L FiO2 30 Sodium 142 (137-145) mmol/L Potassium 3.6 (3.4-5.1) mmol/L Chloride 108 H (98-107) mmol/L Carbon Dioxide 25 (22-32) mmol/L BUN 12 (7-17) mg/dL Creatinine 0.70 (0.52-1.04) mg/dL Estimated GFR > 60.0 (>60) mL/min BUN/Creatinine Ratio 17.1 (6-22) Glucose 109 H (70-100) mg/dL Lactate (0.7-2.1) mmol/L Calcium 8.7 (8.4-10.2) mg/dL Magnesium 2.1 (1.6-2.3) mg/dL Total Creatine Kinase 45 (30-135) U/L CK-MB (CK-2) TNP CK-MB (CK-2) Rel Index TNP Troponin I < 0.012 (0.01-0.034) ng/mL Procalcitonin (<0.5) ng/mL HCG, Quant < 2.39 mIU/mL Urine Color Urine Appearance Urine pH (4.5-8.0) Ur Specific [facility] (1.000-1.035) Urine Protein (Negative) Urine Glucose (UA) (Negative) g/dL Urine Ketones (NEGATIVE) Urine Occult Blood (Negative) Urine Nitrate (Negative) Urine Bilirubin (NEGATIVE) Urine Urobilinogen (0.2) E.U./dL Ur Leukocyte Esterase (NEGATIVE) Urine RBC (0-5/HPF) Urine WBC (0-5/HPF) Ur Squamous Epith Cells (0-5/HPF) Urine Bacteria (None) Ur Culture Indicated? Micro UA Comment Urine Test (Negative) Nasal Screen MRSA (PCR) (Negative) Urine Opiates Screen (Negative) Ur Oxycodone Screen (Negative) Urine Methadone Screen (Negative) Ur Barbiturates Screen (Negative) U Tricyclic Antidepress (Negative) Ur Phencyclidine Scrn (Negative) Ur Amphetamines Screen (Negative) U Methamphetamines Scrn (Negative) Ur MDMA Scrn (Ecstasy) (Negative) U Benzodiazepines Scrn (Negative) Urine Cocaine Screen (Negative) U Marijuana (THC) Screen (Negative) Influenza A & B (PCR) (Negative) 09/25/18 09/25/18 09/25/18 Range/Units 14:42 15:00 16:02 WBC (4.5-11.0) X10^3/uL RBC (4.0-5.2) X10^6/uL Hgb (12.0-16.0) g/dL Hct (36-46) % MCV (80-100) fL MCH (26-34) PG MCHC (30-36) % RDW (11.6-14.8) % Plt Count (150-400) X10^3/uL Neut % (Auto) (50-75) % Lymph % (Auto) (25-40) % Williamson % (Auto) (3-14) % Eos % (Auto) (2-4) % Baso % (Auto) (0-2) % Neut # (Auto) (6719-8183) /uL Lymph # (Auto) (4754-1226) /uL Williamson # (Auto) (0-900) /uL Eos # (Auto) (0-450) /uL Baso # (Auto) (0-100) /uL ABG pH 7.23 L* 7.24 L* (7.35-7.45) ABG pCO2 59.2 H 57.4 H (35-45) mmHg ABG pO2 254 H* 149 H (80-100) mmHg ABG HCO3 25 25 (22-26) mmol/L ABG Total CO2 26 26 (21-31) mmol/L ABG O2 Saturation 100 99 (95-100) % ABG Base Excess -3.0 L -3.0 L (-2-2) mmol/L FiO2 0.50 0.35 Sodium (137-145) mmol/L Potassium (3.4-5.1) mmol/L Chloride (98-107) mmol/L Carbon Dioxide (22-32) mmol/L BUN (7-17) mg/dL Creatinine (0.52-1.04) mg/dL Estimated GFR (>60) mL/min BUN/Creatinine Ratio (6-22) Glucose (70-100) mg/dL Lactate 1.0 (0.7-2.1) mmol/L Calcium (8.4-10.2) mg/dL Magnesium (1.6-2.3) mg/dL Total Creatine Kinase (30-135) U/L CK-MB (CK-2) CK-MB (CK-2) Rel Index Troponin I (0.01-0.034) ng/mL Procalcitonin (<0.5) ng/mL HCG, Quant mIU/mL Urine Color Urine Appearance Urine pH (4.5-8.0) Ur Specific [facility] (1.000-1.035) Urine Protein (Negative) Urine Glucose (UA) (Negative) g/dL Urine Ketones (NEGATIVE) Urine Occult Blood (Negative) Urine Nitrate (Negative) Urine Bilirubin (NEGATIVE) Urine Urobilinogen (0.2) E.U./dL Ur Leukocyte Esterase (NEGATIVE) Urine RBC (0-5/HPF) Urine WBC (0-5/HPF) Ur Squamous Epith Cells (0-5/HPF) Urine Bacteria (None) Ur Culture Indicated? Micro UA Comment Urine Test (Negative) Nasal Screen MRSA (PCR) (Negative) Urine Opiates Screen (Negative) Ur Oxycodone Screen (Negative) Urine Methadone Screen (Negative) Ur Barbiturates Screen (Negative) U Tricyclic Antidepress (Negative) Ur Phencyclidine Scrn (Negative) Ur Amphetamines Screen (Negative) U Methamphetamines Scrn (Negative) Ur MDMA Scrn (Ecstasy) (Negative) U Benzodiazepines Scrn (Negative) Urine Cocaine Screen (Negative) U Marijuana (THC) Screen (Negative) Influenza A & B (PCR) (Negative) 09/25/18 09/25/18 09/25/18 Range/Units 17:17 19:10 19:10 WBC (4.5-11.0) X10^3/uL RBC (4.0-5.2) X10^6/uL Hgb (12.0-16.0) g/dL Hct (36-46) % MCV (80-100) fL MCH (26-34) PG MCHC (30-36) % RDW (11.6-14.8) % Plt Count (150-400) X10^3/uL Neut % (Auto) (50-75) % Lymph % (Auto) (25-40) % Williamson % (Auto) (3-14) % Eos % (Auto) (2-4) % Baso % (Auto) (0-2) % Neut # (Auto) (8513-7124) /uL Lymph # (Auto) (4299-1886) /uL Williamson # (Auto) (0-900) /uL Eos # (Auto) (0-450) /uL Baso # (Auto) (0-100) /uL ABG pH (7.35-7.45) ABG pCO2 (35-45) mmHg ABG pO2 (80-100) mmHg ABG HCO3 (22-26) mmol/L ABG Total CO2 (21-31) mmol/L ABG O2 Saturation (95-100) % ABG Base Excess (-2-2) mmol/L FiO2 Sodium (137-145) mmol/L Potassium (3.4-5.1) mmol/L Chloride (98-107) mmol/L Carbon Dioxide (22-32) mmol/L BUN (7-17) mg/dL Creatinine (0.52-1.04) mg/dL Estimated GFR (>60) mL/min BUN/Creatinine Ratio (6-22) Glucose (70-100) mg/dL Lactate (0.7-2.1) mmol/L Calcium (8.4-10.2) mg/dL Magnesium (1.6-2.3) mg/dL Total Creatine Kinase (30-135) U/L CK-MB (CK-2) CK-MB (CK-2) Rel Index Troponin I (0.01-0.034) ng/mL Procalcitonin (<0.5) ng/mL HCG, Quant mIU/mL Urine Color Yellow Urine Appearance Slightly cloudy Urine pH 5.5 (4.5-8.0) Ur Specific [facility] >=1.030 H (1.000-1.035) Urine Protein Negative (Negative) Urine Glucose (UA) Trace H (Negative) g/dL Urine Ketones Negative (NEGATIVE) Urine Occult Blood Trace-lysed (Negative) Urine Nitrate Positive H (Negative) Urine Bilirubin Negative (NEGATIVE) Urine Urobilinogen 0.2 (0.2) E.U./dL Ur Leukocyte Esterase Trace H (NEGATIVE) Urine RBC None seen (0-5/HPF) Urine WBC 0-1/hpf (0-5/HPF) Ur Squamous Epith Cells 1-5 /hpf (0-5/HPF) Urine Bacteria Many (>30) H (None) Ur Culture Indicated? Specimen cultured Micro UA Comment . Urine Test Negative (Negative) Nasal Screen MRSA (PCR) Positive for mrsa H (Negative) Urine Opiates Screen (Negative) Ur Oxycodone Screen (Negative) Urine Methadone Screen (Negative) Ur Barbiturates Screen (Negative) U Tricyclic Antidepress (Negative) Ur Phencyclidine Scrn (Negative) Ur Amphetamines Screen (Negative) U Methamphetamines Scrn (Negative) Ur MDMA Scrn (Ecstasy) (Negative) U Benzodiazepines Scrn (Negative) Urine Cocaine Screen (Negative) U Marijuana (THC) Screen (Negative) Influenza A & B (PCR) (Negative) 09/25/18 09/25/18 09/25/18 Range/Units 19:10 19:15 20:12 WBC (4.5-11.0) X10^3/uL RBC (4.0-5.2) X10^6/uL Hgb (12.0-16.0) g/dL Hct (36-46) % MCV (80-100) fL MCH (26-34) PG MCHC (30-36) % RDW (11.6-14.8) % Plt Count (150-400) X10^3/uL Neut % (Auto) (50-75) % Lymph % (Auto) (25-40) % Williamson % (Auto) (3-14) % Eos % (Auto) (2-4) % Baso % (Auto) (0-2) % Neut # (Auto) (2663-6935) /uL Lymph # (Auto) (1597-9987) /uL Williamson # (Auto) (0-900) /uL Eos # (Auto) (0-450) /uL Baso # (Auto) (0-100) /uL ABG pH 7.22 L* (7.35-7.45) ABG pCO2 51.6 H (35-45) mmHg ABG pO2 92 (80-100) mmHg ABG HCO3 21 L (22-26) mmol/L ABG Total CO2 23 (21-31) mmol/L ABG O2 Saturation 95 (95-100) % ABG Base Excess -6.0 L (-2-2) mmol/L FiO2 30 Sodium (137-145) mmol/L Potassium (3.4-5.1) mmol/L Chloride (98-107) mmol/L Carbon Dioxide (22-32) mmol/L BUN (7-17) mg/dL Creatinine (0.52-1.04) mg/dL Estimated GFR (>60) mL/min BUN/Creatinine Ratio (6-22) Glucose (70-100) mg/dL Lactate (0.7-2.1) mmol/L Calcium (8.4-10.2) mg/dL Magnesium (1.6-2.3) mg/dL Total Creatine Kinase (30-135) U/L CK-MB (CK-2) CK-MB (CK-2) Rel Index Troponin I (0.01-0.034) ng/mL Procalcitonin (<0.5) ng/mL HCG, Quant mIU/mL Urine Color Urine Appearance Urine pH (4.5-8.0) Ur Specific [facility] (1.000-1.035) Urine Protein (Negative) Urine Glucose (UA) (Negative) g/dL Urine Ketones (NEGATIVE) Urine Occult Blood (Negative) Urine Nitrate (Negative) Urine Bilirubin (NEGATIVE) Urine Urobilinogen (0.2) E.U./dL Ur Leukocyte Esterase (NEGATIVE) Urine RBC (0-5/HPF) Urine WBC (0-5/HPF) Ur Squamous Epith Cells (0-5/HPF) Urine Bacteria (None) Ur Culture Indicated? Micro UA Comment Urine Test (Negative) Nasal Screen MRSA (PCR) (Negative) Urine Opiates Screen Negative (Negative) Ur Oxycodone Screen Negative (Negative) Urine Methadone Screen Negative (Negative) Ur Barbiturates Screen Negative (Negative) U Tricyclic Antidepress Negative (Negative) Ur Phencyclidine Scrn Negative (Negative) Ur Amphetamines Screen Positive H (Negative) U Methamphetamines Scrn Positive H (Negative) Ur MDMA Scrn (Ecstasy) Negative (Negative) U Benzodiazepines Scrn Negative (Negative) Urine Cocaine Screen Negative (Negative) U Marijuana (THC) Screen Negative (Negative) Influenza A & B (PCR) Negative (Negative) 09/26/18 09/26/18 09/26/18 Range/Units 02:15 02:15 02:15 WBC 16.3 H (4.5-11.0) X10^3/uL RBC 4.46 (4.0-5.2) X10^6/uL Hgb 13.3 (12.0-16.0) g/dL Hct 39.2 (36-46) % MCV 87.9 (80-100) fL MCH 29.8 (26-34) PG MCHC 33.9 (30-36) % RDW 14.4 (11.6-14.8) % Plt Count 374 (150-400) X10^3/uL Neut % (Auto) 94.6 H D (50-75) % Lymph % (Auto) 3.5 L (25-40) % Williamson % (Auto) 1.6 L (3-14) % Eos % (Auto) 0.0 L (2-4) % Baso % (Auto) 0.3 (0-2) % Neut # (Auto) 52178 H (2863-0230) /uL Lymph # (Auto) 600 L (1090-9267) /uL Williamson # (Auto) 300 (0-900) /uL Eos # (Auto) 0 (0-450) /uL Baso # (Auto) 0 (0-100) /uL ABG pH (7.35-7.45) ABG pCO2 (35-45) mmHg ABG pO2 (80-100) mmHg ABG HCO3 (22-26) mmol/L ABG Total CO2 (21-31) mmol/L ABG O2 Saturation (95-100) % ABG Base Excess (-2-2) mmol/L FiO2 Sodium 139 (137-145) mmol/L Potassium 4.5 (3.4-5.1) mmol/L Chloride 108 H (98-107) mmol/L Carbon Dioxide 17 L (22-32) mmol/L BUN 10 (7-17) mg/dL Creatinine 0.60 (0.52-1.04) mg/dL Estimated GFR > 60.0 (>60) mL/min BUN/Creatinine Ratio 16.7 (6-22) Glucose 172 H (70-100) mg/dL Lactate (0.7-2.1) mmol/L Calcium 8.6 (8.4-10.2) mg/dL Magnesium (1.6-2.3) mg/dL Total Creatine Kinase (30-135) U/L CK-MB (CK-2) CK-MB (CK-2) Rel Index Troponin I (0.01-0.034) ng/mL Procalcitonin < 0.05 (<0.5) ng/mL HCG, Quant mIU/mL Urine Color Urine Appearance Urine pH (4.5-8.0) Ur Specific [facility] (1.000-1.035) Urine Protein (Negative) Urine Glucose (UA) (Negative) g/dL Urine Ketones (NEGATIVE) Urine Occult Blood (Negative) Urine Nitrate (Negative) Urine Bilirubin (NEGATIVE) Urine Urobilinogen (0.2) E.U./dL Ur Leukocyte Esterase (NEGATIVE) Urine RBC (0-5/HPF) Urine WBC (0-5/HPF) Ur Squamous Epith Cells (0-5/HPF) Urine Bacteria (None) Ur Culture Indicated? Micro UA Comment Urine Test (Negative) Nasal Screen MRSA (PCR) (Negative) Urine Opiates Screen (Negative) Ur Oxycodone Screen (Negative) Urine Methadone Screen (Negative) Ur Barbiturates Screen (Negative) U Tricyclic Antidepress (Negative) Ur Phencyclidine Scrn (Negative) Ur Amphetamines Screen (Negative) U Methamphetamines Scrn (Negative) Ur MDMA Scrn (Ecstasy) (Negative) U Benzodiazepines Scrn (Negative) Urine Cocaine Screen (Negative) U Marijuana (THC) Screen (Negative) Influenza A & B (PCR) (Negative) 09/26/18 09/26/18 09/26/18 Range/Units 02:15 04:15 05:16 WBC (4.5-11.0) X10^3/uL RBC (4.0-5.2) X10^6/uL Hgb (12.0-16.0) g/dL Hct (36-46) % MCV (80-100) fL MCH (26-34) PG MCHC (30-36) % RDW (11.6-14.8) % Plt Count (150-400) X10^3/uL Neut % (Auto) (50-75) % Lymph % (Auto) (25-40) % Williamson % (Auto) (3-14) % Eos % (Auto) (2-4) % Baso % (Auto) (0-2) % Neut # (Auto) (5193-9393) /uL Lymph # (Auto) (1202-4695) /uL Williamson # (Auto) (0-900) /uL Eos # (Auto) (0-450) /uL Baso # (Auto) (0-100) /uL ABG pH 7.21 L* (7.35-7.45) ABG pCO2 32.8 L (35-45) mmHg ABG pO2 124 H (80-100) mmHg ABG HCO3 13 L (22-26) mmol/L ABG Total CO2 14 L (21-31) mmol/L ABG O2 Saturation 98 (95-100) % ABG Base Excess -15.0 L (-2-2) mmol/L FiO2 30 Sodium (137-145) mmol/L Potassium (3.4-5.1) mmol/L Chloride (98-107) mmol/L Carbon Dioxide (22-32) mmol/L BUN (7-17) mg/dL Creatinine (0.52-1.04) mg/dL Estimated GFR (>60) mL/min BUN/Creatinine Ratio (6-22) Glucose (70-100) mg/dL Lactate 8.1 H 7.8 H (0.7-2.1) mmol/L Calcium (8.4-10.2) mg/dL Magnesium (1.6-2.3) mg/dL Total Creatine Kinase (30-135) U/L CK-MB (CK-2) CK-MB (CK-2) Rel Index Troponin I (0.01-0.034) ng/mL Procalcitonin (<0.5) ng/mL HCG, Quant mIU/mL Urine Color Urine Appearance Urine pH (4.5-8.0) Ur Specific [facility] (1.000-1.035) Urine Protein (Negative) Urine Glucose (UA) (Negative) g/dL Urine Ketones (NEGATIVE) Urine Occult Blood (Negative) Urine Nitrate (Negative) Urine Bilirubin (NEGATIVE) Urine Urobilinogen (0.2) E.U./dL Ur Leukocyte Esterase (NEGATIVE) Urine RBC (0-5/HPF) Urine WBC (0-5/HPF) Ur Squamous Epith Cells (0-5/HPF) Urine Bacteria (None) Ur Culture Indicated? Micro UA Comment Urine Test (Negative) Nasal Screen MRSA (PCR) (Negative) Urine Opiates Screen (Negative) Ur Oxycodone Screen (Negative) Urine Methadone Screen (Negative) Ur Barbiturates Screen (Negative) U Tricyclic Antidepress (Negative) Ur Phencyclidine Scrn (Negative) Ur Amphetamines Screen (Negative) U Methamphetamines Scrn (Negative) Ur MDMA Scrn (Ecstasy) (Negative) U Benzodiazepines Scrn (Negative) Urine Cocaine Screen (Negative) U Marijuana (THC) Screen (Negative) Influenza A & B (PCR) (Negative) 09/26/18 Range/Units 07:24 WBC 18.9 H (4.5-11.0) X10^3/uL RBC 4.20 (4.0-5.2) X10^6/uL Hgb 12.1 (12.0-16.0) g/dL Hct 38.1 (36-46) % MCV 90.8 (80-100) fL MCH 28.8 (26-34) PG MCHC 31.7 (30-36) % RDW 14.6 (11.6-14.8) % Plt Count 334 (150-400) X10^3/uL Neut % (Auto) 93.2 H (50-75) % Lymph % (Auto) 3.5 L (25-40) % Williamson % (Auto) 3.2 (3-14) % Eos % (Auto) 0.0 L (2-4) % Baso % (Auto) 0.1 (0-2) % Neut # (Auto) 59056 H (9935-6418) /uL Lymph # (Auto) 700 L (0280-1788) /uL Williamson # (Auto) 600 (0-900) /uL Eos # (Auto) 0 (0-450) /uL Baso # (Auto) 0 (0-100) /uL ABG pH (7.35-7.45) ABG pCO2 (35-45) mmHg ABG pO2 (80-100) mmHg ABG HCO3 (22-26) mmol/L ABG Total CO2 (21-31) mmol/L ABG O2 Saturation (95-100) % ABG Base Excess (-2-2) mmol/L FiO2 Sodium (137-145) mmol/L Potassium (3.4-5.1) mmol/L Chloride (98-107) mmol/L Carbon Dioxide (22-32) mmol/L BUN (7-17) mg/dL Creatinine (0.52-1.04) mg/dL Estimated GFR (>60) mL/min BUN/Creatinine Ratio (6-22) Glucose (70-100) mg/dL Lactate (0.7-2.1) mmol/L Calcium (8.4-10.2) mg/dL Magnesium (1.6-2.3) mg/dL Total Creatine Kinase (30-135) U/L CK-MB (CK-2) CK-MB (CK-2) Rel Index Troponin I (0.01-0.034) ng/mL Procalcitonin (<0.5) ng/mL HCG, Quant mIU/mL Urine Color Urine Appearance Urine pH (4.5-8.0) Ur Specific [facility] (1.000-1.035) Urine Protein (Negative) Urine Glucose (UA) (Negative) g/dL Urine Ketones (NEGATIVE) Urine Occult Blood (Negative) Urine Nitrate (Negative) Urine Bilirubin (NEGATIVE) Urine Urobilinogen (0.2) E.U./dL Ur Leukocyte Esterase (NEGATIVE) Urine RBC (0-5/HPF) Urine WBC (0-5/HPF) Ur Squamous Epith Cells (0-5/HPF) Urine Bacteria (None) Ur Culture Indicated? Micro UA Comment Urine Test (Negative) Nasal Screen MRSA (PCR) (Negative) Urine Opiates Screen (Negative) Ur Oxycodone Screen (Negative) Urine Methadone Screen (Negative) Ur Barbiturates Screen (Negative) U Tricyclic Antidepress (Negative) Ur Phencyclidine Scrn (Negative) Ur Amphetamines Screen (Negative) U Methamphetamines Scrn (Negative) Ur MDMA Scrn (Ecstasy) (Negative) U Benzodiazepines Scrn (Negative) Urine Cocaine Screen (Negative) U Marijuana (THC) Screen (Negative) Influenza A & B (PCR) (Negative) <Jennyfer Cardoza DO - Last Filed: 09/26/18 07:45> Cosign ED Attending Cosignature Attestation: Patient was transferred to my care. Please see my note from the same day for rest of ER stay and admission. Supervised by Jennyfer Cardoza DO
--- NOTE | 2018-09-25 14:18 | ED_ITS ---
HPI - Asthma <REINIER Davidson - Last Filed: 09/25/18 15:59> General Chief Complaint: Asthma Stated Complaint: Asthma attack Time Seen by Provider: 09/25/18 14:09 Source: patient Mode of arrival: ambulatory Limitations: no limitations History of Present Illness HPI Narrative: woke up with wheezing and asthma attack, tried inhaler first, no better, did neb tx, no better MD complaint: asthma attack Onset (ago): hour(s) Severity: severe Context: none known Associated symptoms: none Treatments Prior to Arrival: inhaled bronchodilator Related Data Current Asthma Therapy: inhaled bronchodilator Home Medications Medication Instructions Recorded Confirmed albuterol sulfate 09/25/18 lorazepam 1 mg PO QD-BID PRN 09/25/18 09/25/18 prednisone 09/25/18 Previous Rx's Medication Instructions Recorded clindamycin HCl 150 mg PO Q6H 7 Days #0 cap 01/21/16 albuterol sulfate [Proventil HFA] 0 IH SEE INSTRUCTIONS #2 ea 06/03/16 Allergies Allergy/AdvReac Type Severity Reaction Status Date / Time doxycycline Allergy Mild INFLAMED Unverified 09/15/17 11:45 IV SITE; HIVES tetracycline Allergy Mild RASH Unverified 09/15/17 11:45 hydromorphone AdvReac Mild SHAKINESS/D Unverified 09/15/17 11:45 IZZINESS morphine AdvReac Mild UPSET Unverified 09/15/17 11:45 STOMACH Review of Systems <REINIER Davidson - Last Filed: 09/25/18 15:59> Review of Systems ROS Unobtainable: All systems reviewed & are unremarkable except as noted in HPI and below Constitutional Reports as per HPI, Reports system reviewed and no additional complaints, except as docu, Denies fever(s) and Denies headache(s) Eyes Denies eye discharge, Denies irritation and Denies itchy eyes ENT Ears, Nose, Mouth, and Throat: Reports as per HPI, Denies dental pain, Denies vertigo, Denies dizziness, Denies ear discharge, Reports otalgia, Denies facial pain, Denies headache(s), Denies hearing loss, Denies nasal congestion, Denies nasal discharge, Denies neck pain, Denies sinus pain, Denies sinus pressure and Denies sore throat Cardiovascular Denies dyspnea Respiratory Denies dyspnea Musculoskeletal Denies neck pain Neurologic Denies vertigo, Denies dizziness and Denies headache(s) Allergic/Immunologic Denies itchy eyes Exam <Sharda REINIER Bellamy - Last Filed: 09/25/18 15:59> Initial Vital Signs Initial Vital Signs: Vital Signs Temperature 97.2 F L 09/25/18 14:10 Pulse Rate 124 H 09/25/18 14:10 Respiratory Rate 26 H 09/25/18 14:10 Blood Pressure 149/114 H 09/25/18 14:10 Pulse Oximetry 99 09/25/18 14:10 Const General: cooperative, healthy appearing, comfortable, well developed and well groomed Nutritional Appearance: average body habitus Orientation: alert, awake and oriented x3 HENMT Head: normal to inspection and normocephalic Ears: hearing grossly normal bilaterally, external ears normal, TM's normal albino aterally and mastoids normal Nose: external nose normal and nares normal Face and sinus: normal facial exam, sinuses nontender and face symmetric Mouth: oral mucosae normal, lip normal, tongue normal, oropharynx normal and moist mucous membranes Teeth and gingiva: dentition normal and gingiva normal Throat: posterior oropharynx normal, tonsils normal and uvula midline Eyes General: appearance normal, both eyes and all related structures Visual Dave: normal visual dave by confrontation Eyelids: eyelids normal Conjunctivae: conjunctivae normal Sclera: sclerae normal Pupils: PERRL EOM: EOM intact bilaterally Neck Neck: normal visual inspection, full ROM, no meningeal signs, trachea midline, supple and No lymphadenopathy Chest Chest: normal inspection of the chest Resp Effort & Inspection: normal respiratory effort, not able to speak in complete sentences and labored Auscultation: clear to auscultation bilaterally and wheezes expiratory wheezes, inspiratory wheezes and scattered wheezes Cardio Rate: regular rate and tachycardic (HR 120's) Heart Sounds: S1 normal and S2 normal Back/Spine/Pelvis Cervical Spine: cervical ROM normal Thoracic/Lumbar Spine: thoraco-lumbar ROM normal Skin General: no rashes or lesions noted, elasticity normal, turgor normal and dry skin Neuro General: alert, awake, oriented x3 and meningeal signs present Cognition: normal cognition Speech: speech normal Gait: normal gait Motor: muscle tone normal throughout Sensory Exam: no sensory deficits noted Extrem General: normal to inspection and full ROM Psych Appearance: grossly normal and well kempt Mental Status: mental status grossly normal Speech and Movement: speech and movement normal Mood: congruent mood Affect: normal affect Attitude: cooperative Thought Process: normal Thought Content: normal Judgment: judgment good <Jennyfer Cardoza DO - Last Filed: 09/26/18 07:45> Initial Vital Signs Initial Vital Signs: Vital Signs Temperature 97.2 F L 09/25/18 14:10 Pulse Rate 124 H 09/25/18 14:10 Respiratory Rate 26 H 09/25/18 14:10 Blood Pressure 149/114 H 09/25/18 14:10 Pulse Oximetry 99 09/25/18 14:10 PFSH <REINIER Davidson - Last Filed: 09/25/18 15:59> Medical History Anxiety (Acute) Asthma (Acute) Social History Smoking Status: Current every day smoker alcohol intake: never Social History Smoking Status: Current every day smoker alcohol intake: never Course <REINIER Davidson - Last Filed: 09/25/18 15:59> Course Narrative: RT at bedside upon entering room and already had neb tx going, giving pt 1hr long albuterol with atrovent, PO100% 1420 nurse and RT, pt is starting to have anxiety attack and is requesting theophylline saying that is what helped her in the past 1435 back at bedside with Dr Cardoza, pt's resp are more labored, pt now diaphoretic, audible wheezing/stridoring, and has the triangle neck muscle use attempting to breathe, RT at bedside still, pt will be moved to Room 2 for closer monitoring and Dr Cardoza will assume care at this point Orders Ordered: ED Orders 09/26/18 XR chest 1V Stat Blood Culture Routine 09/26/18 02:15 Basic Metabolic Panel Routine Complete Blood Count AUTO DIFF Routine Lactate (Lactic Acid) Stat Procalcitonin Stat 09/26/18 04:05 Blood Culture Stat 09/26/18 05:16 Arterial Blood Gas Urgent 09/26/18 07:24 CBC [Complete Blood Count AUTO DIFF] Stat Comprehensive Metabolic Panel Stat Albuterol (Ventolin) 2.5 mg INH [id number] PRN PRN Reason: Shortness Of Breath Last Admin: 09/26/18 05:35 Dose: 2.5 mg Admin: 09/26/18 03:26 Dose: 2.5 mg Admin: 09/26/18 00:54 Dose: 2.5 mg Admin: 09/25/18 22:49 Dose: 2.5 mg Admin: 09/25/18 19:58 Dose: 2.5 mg Albuterol/Ipratropium (Duoneb) 3 ml INH [id number] RILEY Last Admin: 09/26/18 07:41 Dose: 3 ml Admin: 09/26/18 03:26 Dose: 3 ml Admin: 09/25/18 22:48 Dose: 3 ml Admin: 09/25/18 19:58 Dose: 3 ml Enoxaparin Sodium (Lovenox) 40 mg SUBCUT DAILY RILEY Famotidine (Pepcid) 20 mg in 50 mls @ 200 mls/hr IV BID RILEY Last Infusion: 09/26/18 07:27 Dose: 0 mls/hr Admin: 09/25/18 22:20 Dose: 200 mls/hr Propofol (Propofol) 1,000 mg in 100 mls @ 2.136 mls/hr IV TITRATE RILEY; Protocol Last Titration: 09/26/18 07:29 Dose: 60 mcg/kg/min, 25.632 mls/hr Admin: 09/26/18 05:54 Dose: 55 mcg/kg/min, 23.496 mls/hr Titration: 09/26/18 05:54 Dose: 55 mcg/kg/min, 23.496 mls/hr Admin: 09/26/18 01:53 Dose: 55 mcg/kg/min, 23.496 mls/hr Titration: 09/26/18 01:53 Dose: 55 mcg/kg/min, 23.496 mls/hr Admin: 09/25/18 22:19 Dose: 55 mcg/kg/min, 23.496 mls/hr Titration: 09/25/18 22:19 Dose: 55 mcg/kg/min, 23.496 mls/hr Titration: 09/25/18 19:50 Dose: 55 mcg/kg/min, 23.496 mls/hr Titration: 09/25/18 19:15 Dose: 40 mcg/kg/min, 17.088 mls/hr Admin: 09/25/18 18:50 Dose: 20 mcg/kg/min, 8.544 mls/hr Sodium Chloride (Normal Saline 0.9%) 1,000 mls @ 125 mls/hr IV CONT RILEY Last Admin: 09/26/18 07:41 Dose: 125 mls/hr Admin: 09/26/18 06:55 Dose: Not Given Methylprednisolone (Solu-Medrol 125 Mg Vial) 80 mg IV Q8H RILEY Last Admin: 09/26/18 02:46 Dose: 80 mg Admin: 09/25/18 20:20 Dose: 80 mg Midazolam HCl (Versed) 2 mg IV Q2H PRN PRN Reason: Agitation Last Admin: 09/26/18 07:15 Dose: 2 mg Admin: 09/26/18 05:07 Dose: 2 mg Morphine Sulfate (Morphine) 2 mg IV Q2HR PRN PRN Reason: pain Last Admin: 09/26/18 00:12 Dose: 2 mg Admin: 09/25/18 19:56 Dose: 2 mg Discontinued Medications Albuterol (Ventolin) 2.5 mg INH NOW ONE Stop: 09/25/18 14:08 Last Admin: 09/25/18 14:10 Dose: 2.5 mg Albuterol (Ventolin) 2.5 mg INH NOW ONE Stop: 09/25/18 14:09 Last Admin: 09/25/18 14:10 Dose: 2.5 mg Albuterol (Ventolin) 2.5 mg INH NOW ONE Stop: 09/25/18 14:10 Last Admin: 09/25/18 14:10 Dose: 2.5 mg Albuterol/Ipratropium (Duoneb) 3 ml INH NOW ONE Stop: 09/25/18 14:10 Last Admin: 09/25/18 14:11 Dose: 3 ml Albuterol/Ipratropium (Duoneb) 3 ml INH NOW ONE Stop: 09/25/18 14:22 Last Admin: 09/25/18 14:22 Dose: 3 ml Albuterol/Ipratropium (Duoneb) 9 ml INH NOW ONE Stop: 09/25/18 14:33 Last Admin: 09/25/18 14:33 Dose: 9 ml Albuterol/Ipratropium (Duoneb) 3 ml INH NOW ONE Stop: 09/25/18 14:43 Fentanyl (Sublimaze) 100 mcg IV NOW ONE Stop: 09/25/18 18:51 Last Admin: 09/25/18 18:51 Dose: 100 mcg Magnesium Sulfate (Magnesium Sulfate) 2 gm in 50 mls @ 25 mls/hr IV NOW ONE Stop: 09/25/18 16:41 Last Infusion: 09/25/18 17:20 Dose: 25 mls/hr Admin: 09/25/18 15:05 Dose: 25 mls/hr Sodium Chloride (Normal Saline 0.9%) 1,000 mls @ 1,000 mls/hr IV BOLUS ONE Stop: 09/25/18 15:41 Last Infusion: 09/25/18 17:20 Dose: 250 mls/hr Admin: 09/25/18 15:04 Dose: 1,000 mls/hr Sodium Chloride (Normal Saline 0.9%) 1,000 mls @ 100 mls/hr IV CONT RILEY Last Infusion: 09/26/18 07:34 Dose: 0 mls/hr Admin: 09/26/18 06:00 Dose: 100 mls/hr Admin: 09/25/18 20:13 Dose: Not Given Ceftriaxone Sodium/Dextrose (Rocephin) 2 gm in 50 mls @ 100 mls/hr IV Q24H RILEY Last Infusion: 09/26/18 07:28 Dose: 0 mls/hr Admin: 09/26/18 04:21 Dose: 100 mls/hr Sodium Chloride (Normal Saline 0.9%) 1,000 mls @ 1,000 mls/hr IV BOLUS ONE Stop: 09/26/18 04:42 Last Infusion: 09/26/18 07:34 Dose: 0 mls/hr Admin: 09/26/18 04:12 Dose: 1,000 mls/hr Ceftriaxone Sodium 2,000 mg/ (Sodium Chloride) 100 mls @ 200 mls/hr IV Q24H [facility] Last Admin: 09/26/18 07:28 Dose: Not Given Lorazepam (Ativan) 1 mg IV NOW ONE Stop: 09/25/18 14:25 Last Admin: 09/25/18 14:28 Dose: Not Given Methylprednisolone (Solu-Medrol 125 Mg Vial) 125 mg IV NOW ONE Stop: 09/25/18 14:15 Last Admin: 09/25/18 14:23 Dose: 125 mg Midazolam HCl (Versed) 2 mg IV Q2H PRN PRN Reason: Agitation Last Admin: 09/26/18 02:47 Dose: 2 mg Admin: 09/26/18 00:52 Dose: 2 mg Admin: 09/25/18 22:49 Dose: 2 mg Admin: 09/25/18 20:46 Dose: 2 mg Propofol (Diprivan) 200 mg IV NOW ONE Stop: 09/25/18 18:46 Last Admin: 09/25/18 18:45 Dose: 200 mg Rocuronium Laurel (Zemuron) 20 mg IV NOW ONE Stop: 09/25/18 18:50 Last Admin: 09/25/18 18:49 Dose: 20 mg Succinylcholine Chloride (Quelicin) 160 mg IV NOW ONE Stop: 09/25/18 18:46 Last Admin: 09/25/18 18:45 Dose: 160 mg Theophylline (Respbid Er) 300 mg PO NOW ONE Stop: 09/25/18 17:27 Last Admin: 09/25/18 17:46 Dose: 300 mg Vital Signs - 8 hr 09/26/18 00:00 09/26/18 01:37 09/26/18 02:03 Temperature 97.3 F L 97.8 F 97.6 F Pulse Rate 112 H 117 H 113 H Respiratory Rate 15 15 15 Blood Pressure 103/54 L 99/58 L 99/50 L Pulse Oximetry 100 100 100 09/26/18 03:00 09/26/18 04:03 09/26/18 05:08 Temperature 97.7 F Pulse Rate 116 H 119 H 123 H Respiratory Rate 17 21 Blood Pressure 104/51 L 109/67 122/76 Pulse Oximetry 100 99 100 09/26/18 06:03 Temperature 98.1 F Pulse Rate 121 H Respiratory Rate 15 Blood Pressure 113/48 L Pulse Oximetry 100 <Jennyfer Cardoza DO - Last Filed: 09/26/18 07:45> Orders Ordered: ED Orders 09/26/18 XR chest 1V Stat Blood Culture Routine 09/26/18 02:15 Basic Metabolic Panel Routine Complete Blood Count AUTO DIFF Routine Lactate (Lactic Acid) Stat Procalcitonin Stat 09/26/18 04:05 Blood Culture Stat 09/26/18 05:16 Arterial Blood Gas Urgent 09/26/18 07:24 CBC [Complete Blood Count AUTO DIFF] Stat Comprehensive Metabolic Panel Stat Albuterol (Ventolin) 2.5 mg INH [id number] PRN PRN Reason: Shortness Of Breath Last Admin: 09/26/18 05:35 Dose: 2.5 mg Admin: 09/26/18 03:26 Dose: 2.5 mg Admin: 09/26/18 00:54 Dose: 2.5 mg Admin: 09/25/18 22:49 Dose: 2.5 mg Admin: 09/25/18 19:58 Dose: 2.5 mg Albuterol/Ipratropium (Duoneb) 3 ml INH [id number] RILEY Last Admin: 09/26/18 07:41 Dose: 3 ml Admin: 09/26/18 03:26 Dose: 3 ml Admin: 09/25/18 22:48 Dose: 3 ml Admin: 09/25/18 19:58 Dose: 3 ml Enoxaparin Sodium (Lovenox) 40 mg SUBCUT DAILY RILEY Famotidine (Pepcid) 20 mg in 50 mls @ 200 mls/hr IV BID RILEY Last Infusion: 09/26/18 07:27 Dose: 0 mls/hr Admin: 09/25/18 22:20 Dose: 200 mls/hr Propofol (Propofol) 1,000 mg in 100 mls @ 2.136 mls/hr IV TITRATE RILEY; Protocol Last Titration: 09/26/18 07:29 Dose: 60 mcg/kg/min, 25.632 mls/hr Admin: 09/26/18 05:54 Dose: 55 mcg/kg/min, 23.496 mls/hr Titration: 09/26/18 05:54 Dose: 55 mcg/kg/min, 23.496 mls/hr Admin: 09/26/18 01:53 Dose: 55 mcg/kg/min, 23.496 mls/hr Titration: 09/26/18 01:53 Dose: 55 mcg/kg/min, 23.496 mls/hr Admin: 09/25/18 22:19 Dose: 55 mcg/kg/min, 23.496 mls/hr Titration: 09/25/18 22:19 Dose: 55 mcg/kg/min, 23.496 mls/hr Titration: 09/25/18 19:50 Dose: 55 mcg/kg/min, 23.496 mls/hr Titration: 09/25/18 19:15 Dose: 40 mcg/kg/min, 17.088 mls/hr Admin: 09/25/18 18:50 Dose: 20 mcg/kg/min, 8.544 mls/hr Sodium Chloride (Normal Saline 0.9%) 1,000 mls @ 125 mls/hr IV CONT RILEY Last Admin: 09/26/18 07:41 Dose: 125 mls/hr Admin: 09/26/18 06:55 Dose: Not Given Methylprednisolone (Solu-Medrol 125 Mg Vial) 80 mg IV Q8H RILEY Last Admin: 09/26/18 02:46 Dose: 80 mg Admin: 09/25/18 20:20 Dose: 80 mg Midazolam HCl (Versed) 2 mg IV Q2H PRN PRN Reason: Agitation Last Admin: 09/26/18 07:15 Dose: 2 mg Admin: 09/26/18 05:07 Dose: 2 mg Morphine Sulfate (Morphine) 2 mg IV Q2HR PRN PRN Reason: pain Last Admin: 09/26/18 00:12 Dose: 2 mg Admin: 09/25/18 19:56 Dose: 2 mg Discontinued Medications Albuterol (Ventolin) 2.5 mg INH NOW ONE Stop: 09/25/18 14:08 Last Admin: 09/25/18 14:10 Dose: 2.5 mg Albuterol (Ventolin) 2.5 mg INH NOW ONE Stop: 09/25/18 14:09 Last Admin: 09/25/18 14:10 Dose: 2.5 mg Albuterol (Ventolin) 2.5 mg INH NOW ONE Stop: 09/25/18 14:10 Last Admin: 09/25/18 14:10 Dose: 2.5 mg Albuterol/Ipratropium (Duoneb) 3 ml INH NOW ONE Stop: 09/25/18 14:10 Last Admin: 09/25/18 14:11 Dose: 3 ml Albuterol/Ipratropium (Duoneb) 3 ml INH NOW ONE Stop: 09/25/18 14:22 Last Admin: 09/25/18 14:22 Dose: 3 ml Albuterol/Ipratropium (Duoneb) 9 ml INH NOW ONE Stop: 09/25/18 14:33 Last Admin: 09/25/18 14:33 Dose: 9 ml Albuterol/Ipratropium (Duoneb) 3 ml INH NOW ONE Stop: 09/25/18 14:43 Fentanyl (Sublimaze) 100 mcg IV NOW ONE Stop: 09/25/18 18:51 Last Admin: 09/25/18 18:51 Dose: 100 mcg Magnesium Sulfate (Magnesium Sulfate) 2 gm in 50 mls @ 25 mls/hr IV NOW ONE Stop: 09/25/18 16:41 Last Infusion: 09/25/18 17:20 Dose: 25 mls/hr Admin: 09/25/18 15:05 Dose: 25 mls/hr Sodium Chloride (Normal Saline 0.9%) 1,000 mls @ 1,000 mls/hr IV BOLUS ONE Stop: 09/25/18 15:41 Last Infusion: 09/25/18 17:20 Dose: 250 mls/hr Admin: 09/25/18 15:04 Dose: 1,000 mls/hr Sodium Chloride (Normal Saline 0.9%) 1,000 mls @ 100 mls/hr IV CONT RILEY Last Infusion: 09/26/18 07:34 Dose: 0 mls/hr Admin: 09/26/18 06:00 Dose: 100 mls/hr Admin: 09/25/18 20:13 Dose: Not Given Ceftriaxone Sodium/Dextrose (Rocephin) 2 gm in 50 mls @ 100 mls/hr IV Q24H [facility] Last Infusion: 09/26/18 07:28 Dose: 0 mls/hr Admin: 09/26/18 04:21 Dose: 100 mls/hr Sodium Chloride (Normal Saline 0.9%) 1,000 mls @ 1,000 mls/hr IV BOLUS ONE Stop: 09/26/18 04:42 Last Infusion: 09/26/18 07:34 Dose: 0 mls/hr Admin: 09/26/18 04:12 Dose: 1,000 mls/hr Ceftriaxone Sodium 2,000 mg/ (Sodium Chloride) 100 mls @ 200 mls/hr IV Q24H [facility] Last Admin: 09/26/18 07:28 Dose: Not Given Lorazepam (Ativan) 1 mg IV NOW ONE Stop: 09/25/18 14:25 Last Admin: 09/25/18 14:28 Dose: Not Given Methylprednisolone (Solu-Medrol 125 Mg Vial) 125 mg IV NOW ONE Stop: 09/25/18 14:15 Last Admin: 09/25/18 14:23 Dose: 125 mg Midazolam HCl (Versed) 2 mg IV Q2H PRN PRN Reason: Agitation Last Admin: 09/26/18 02:47 Dose: 2 mg Admin: 09/26/18 00:52 Dose: 2 mg Admin: 09/25/18 22:49 Dose: 2 mg Admin: 09/25/18 20:46 Dose: 2 mg Propofol (Diprivan) 200 mg IV NOW ONE Stop: 09/25/18 18:46 Last Admin: 09/25/18 18:45 Dose: 200 mg Rocuronium Laurel (Zemuron) 20 mg IV NOW ONE Stop: 09/25/18 18:50 Last Admin: 09/25/18 18:49 Dose: 20 mg Succinylcholine Chloride (Quelicin) 160 mg IV NOW ONE Stop: 09/25/18 18:46 Last Admin: 09/25/18 18:45 Dose: 160 mg Theophylline (Respbid Er) 300 mg PO NOW ONE Stop: 09/25/18 17:27 Last Admin: 09/25/18 17:46 Dose: 300 mg Vital Signs - 8 hr 09/26/18 00:00 09/26/18 01:37 09/26/18 02:03 Temperature 97.3 F L 97.8 F 97.6 F Pulse Rate 112 H 117 H 113 H Respiratory Rate 15 15 15 Blood Pressure 103/54 L 99/58 L 99/50 L Pulse Oximetry 100 100 100 09/26/18 03:00 09/26/18 04:03 09/26/18 05:08 Temperature 97.7 F Pulse Rate 116 H 119 H 123 H Respiratory Rate 17 21 Blood Pressure 104/51 L 109/67 122/76 Pulse Oximetry 100 99 100 09/26/18 06:03 Temperature 98.1 F Pulse Rate 121 H Respiratory Rate 15 Blood Pressure 113/48 L Pulse Oximetry 100 MDM - Asthma <Sharda Josesito, COURT MAGISTRATE - Last Filed: 09/25/18 15:59> Differential Diagnosis Differential diagnosis: Likely Acute exacerbation, Status asthmaticus, Acute asthmatic bronchitis and Pneumonia Lab Data Result diagrams: 09/26/18 07:24 09/26/18 02:15 Lab Results 09/25/18 09/25/18 09/25/18 Range/Units 01:04 14:15 14:15 WBC 17.5 H (4.5-11.0) X10^3/uL RBC 4.72 (4.0-5.2) X10^6/uL Hgb 13.8 (12.0-16.0) g/dL Hct 41.8 (36-46) % MCV 88.7 (80-100) fL MCH 29.2 (26-34) PG MCHC 32.9 (30-36) % RDW 14.1 (11.6-14.8) % Plt Count 424 H (150-400) X10^3/uL Neut % (Auto) 72.7 (50-75) % Lymph % (Auto) 13.8 L (25-40) % Bibb % (Auto) 6.6 (3-14) % Eos % (Auto) 6.2 H (2-4) % Baso % (Auto) 0.7 (0-2) % Neut # (Auto) 76556 H (4251-6608) /uL Lymph # (Auto) 2400 (9868-3856) /uL Bibb # (Auto) 1200 H (0-900) /uL Eos # (Auto) 1100 H (0-450) /uL Baso # (Auto) 100 (0-100) /uL ABG pH 7.24 L* (7.35-7.45) ABG pCO2 39.3 (35-45) mmHg ABG pO2 143 H (80-100) mmHg ABG HCO3 17 L (22-26) mmol/L ABG Total CO2 18 L (21-31) mmol/L ABG O2 Saturation 99 (95-100) % ABG Base Excess -11.0 L (-2-2) mmol/L FiO2 30 Sodium 142 (137-145) mmol/L Potassium 3.6 (3.4-5.1) mmol/L Chloride 108 H (98-107) mmol/L Carbon Dioxide 25 (22-32) mmol/L BUN 12 (7-17) mg/dL Creatinine 0.70 (0.52-1.04) mg/dL Estimated GFR > 60.0 (>60) mL/min BUN/Creatinine Ratio 17.1 (6-22) Glucose 109 H (70-100) mg/dL Lactate (0.7-2.1) mmol/L Calcium 8.7 (8.4-10.2) mg/dL Magnesium 2.1 (1.6-2.3) mg/dL Total Creatine Kinase 45 (30-135) U/L CK-MB (CK-2) TNP CK-MB (CK-2) Rel Index TNP Troponin I < 0.012 (0.01-0.034) ng/mL Procalcitonin (<0.5) ng/mL HCG, Quant < 2.39 mIU/mL Urine Color Urine Appearance Urine pH (4.5-8.0) Ur Specific [place] (1.000-1.035) Urine Protein (Negative) Urine Glucose (UA) (Negative) g/dL Urine Ketones (NEGATIVE) Urine Occult Blood (Negative) Urine Nitrate (Negative) Urine Bilirubin (NEGATIVE) Urine Urobilinogen (0.2) E.U./dL Ur Leukocyte Esterase (NEGATIVE) Urine RBC (0-5/HPF) Urine WBC (0-5/HPF) Ur Squamous Epith Cells (0-5/HPF) Urine Bacteria (None) Ur Culture Indicated? Micro UA Comment Urine Test (Negative) Nasal Screen MRSA (PCR) (Negative) Urine Opiates Screen (Negative) Ur Oxycodone Screen (Negative) Urine Methadone Screen (Negative) Ur Barbiturates Screen (Negative) U Tricyclic Antidepress (Negative) Ur Phencyclidine Scrn (Negative) Ur Amphetamines Screen (Negative) U Methamphetamines Scrn (Negative) Ur MDMA Scrn (Ecstasy) (Negative) U Benzodiazepines Scrn (Negative) Urine Cocaine Screen (Negative) U Marijuana (THC) Screen (Negative) Influenza A & B (PCR) (Negative) 09/25/18 09/25/18 09/25/18 Range/Units 14:42 15:00 16:02 WBC (4.5-11.0) X10^3/uL RBC (4.0-5.2) X10^6/uL Hgb (12.0-16.0) g/dL Hct (36-46) % MCV (80-100) fL MCH (26-34) PG MCHC (30-36) % RDW (11.6-14.8) % Plt Count (150-400) X10^3/uL Neut % (Auto) (50-75) % Lymph % (Auto) (25-40) % Bibb % (Auto) (3-14) % Eos % (Auto) (2-4) % Baso % (Auto) (0-2) % Neut # (Auto) (3030-3246) /uL Lymph # (Auto) (6346-4869) /uL Bibb # (Auto) (0-900) /uL Eos # (Auto) (0-450) /uL Baso # (Auto) (0-100) /uL ABG pH 7.23 L* 7.24 L* (7.35-7.45) ABG pCO2 59.2 H 57.4 H (35-45) mmHg ABG pO2 254 H* 149 H (80-100) mmHg ABG HCO3 25 25 (22-26) mmol/L ABG Total CO2 26 26 (21-31) mmol/L ABG O2 Saturation 100 99 (95-100) % ABG Base Excess -3.0 L -3.0 L (-2-2) mmol/L FiO2 0.50 0.35 Sodium (137-145) mmol/L Potassium (3.4-5.1) mmol/L Chloride (98-107) mmol/L Carbon Dioxide (22-32) mmol/L BUN (7-17) mg/dL Creatinine (0.52-1.04) mg/dL Estimated GFR (>60) mL/min BUN/Creatinine Ratio (6-22) Glucose (70-100) mg/dL Lactate 1.0 (0.7-2.1) mmol/L Calcium (8.4-10.2) mg/dL Magnesium (1.6-2.3) mg/dL Total Creatine Kinase (30-135) U/L CK-MB (CK-2) CK-MB (CK-2) Rel Index Troponin I (0.01-0.034) ng/mL Procalcitonin (<0.5) ng/mL HCG, Quant mIU/mL Urine Color Urine Appearance Urine pH (4.5-8.0) Ur Specific [place] (1.000-1.035) Urine Protein (Negative) Urine Glucose (UA) (Negative) g/dL Urine Ketones (NEGATIVE) Urine Occult Blood (Negative) Urine Nitrate (Negative) Urine Bilirubin (NEGATIVE) Urine Urobilinogen (0.2) E.U./dL Ur Leukocyte Esterase (NEGATIVE) Urine RBC (0-5/HPF) Urine WBC (0-5/HPF) Ur Squamous Epith Cells (0-5/HPF) Urine Bacteria (None) Ur Culture Indicated? Micro UA Comment Urine Test (Negative) Nasal Screen MRSA (PCR) (Negative) Urine Opiates Screen (Negative) Ur Oxycodone Screen (Negative) Urine Methadone Screen (Negative) Ur Barbiturates Screen (Negative) U Tricyclic Antidepress (Negative) Ur Phencyclidine Scrn (Negative) Ur Amphetamines Screen (Negative) U Methamphetamines Scrn (Negative) Ur MDMA Scrn (Ecstasy) (Negative) U Benzodiazepines Scrn (Negative) Urine Cocaine Screen (Negative) U Marijuana (THC) Screen (Negative) Influenza A & B (PCR) (Negative) 09/25/18 09/25/18 09/25/18 Range/Units 17:17 19:10 19:10 WBC (4.5-11.0) X10^3/uL RBC (4.0-5.2) X10^6/uL Hgb (12.0-16.0) g/dL Hct (36-46) % MCV (80-100) fL MCH (26-34) PG MCHC (30-36) % RDW (11.6-14.8) % Plt Count (150-400) X10^3/uL Neut % (Auto) (50-75) % Lymph % (Auto) (25-40) % Bibb % (Auto) (3-14) % Eos % (Auto) (2-4) % Baso % (Auto) (0-2) % Neut # (Auto) (6293-7368) /uL Lymph # (Auto) (6008-2030) /uL Bibb # (Auto) (0-900) /uL Eos # (Auto) (0-450) /uL Baso # (Auto) (0-100) /uL ABG pH (7.35-7.45) ABG pCO2 (35-45) mmHg ABG pO2 (80-100) mmHg ABG HCO3 (22-26) mmol/L ABG Total CO2 (21-31) mmol/L ABG O2 Saturation (95-100) % ABG Base Excess (-2-2) mmol/L FiO2 Sodium (137-145) mmol/L Potassium (3.4-5.1) mmol/L Chloride (98-107) mmol/L Carbon Dioxide (22-32) mmol/L BUN (7-17) mg/dL Creatinine (0.52-1.04) mg/dL Estimated GFR (>60) mL/min BUN/Creatinine Ratio (6-22) Glucose (70-100) mg/dL Lactate (0.7-2.1) mmol/L Calcium (8.4-10.2) mg/dL Magnesium (1.6-2.3) mg/dL Total Creatine Kinase (30-135) U/L CK-MB (CK-2) CK-MB (CK-2) Rel Index Troponin I (0.01-0.034) ng/mL Procalcitonin (<0.5) ng/mL HCG, Quant mIU/mL Urine Color Yellow Urine Appearance Slightly cloudy Urine pH 5.5 (4.5-8.0) Ur Specific [place] >=1.030 H (1.000-1.035) Urine Protein Negative (Negative) Urine Glucose (UA) Trace H (Negative) g/dL Urine Ketones Negative (NEGATIVE) Urine Occult Blood Trace-lysed (Negative) Urine Nitrate Positive H (Negative) Urine Bilirubin Negative (NEGATIVE) Urine Urobilinogen 0.2 (0.2) E.U./dL Ur Leukocyte Esterase Trace H (NEGATIVE) Urine RBC None seen (0-5/HPF) Urine WBC 0-1/hpf (0-5/HPF) Ur Squamous Epith Cells 1-5 /hpf (0-5/HPF) Urine Bacteria Many (>30) H (None) Ur Culture Indicated? Specimen cultured Micro UA Comment . Urine Test Negative (Negative) Nasal Screen MRSA (PCR) Positive for mrsa H (Negative) Urine Opiates Screen (Negative) Ur Oxycodone Screen (Negative) Urine Methadone Screen (Negative) Ur Barbiturates Screen (Negative) U Tricyclic Antidepress (Negative) Ur Phencyclidine Scrn (Negative) Ur Amphetamines Screen (Negative) U Methamphetamines Scrn (Negative) Ur MDMA Scrn (Ecstasy) (Negative) U Benzodiazepines Scrn (Negative) Urine Cocaine Screen (Negative) U Marijuana (THC) Screen (Negative) Influenza A & B (PCR) (Negative) 09/25/18 09/25/18 09/25/18 Range/Units 19:10 19:15 20:12 WBC (4.5-11.0) X10^3/uL RBC (4.0-5.2) X10^6/uL Hgb (12.0-16.0) g/dL Hct (36-46) % MCV (80-100) fL MCH (26-34) PG MCHC (30-36) % RDW (11.6-14.8) % Plt Count (150-400) X10^3/uL Neut % (Auto) (50-75) % Lymph % (Auto) (25-40) % Bibb % (Auto) (3-14) % Eos % (Auto) (2-4) % Baso % (Auto) (0-2) % Neut # (Auto) (1856-9474) /uL Lymph # (Auto) (2207-6515) /uL Bibb # (Auto) (0-900) /uL Eos # (Auto) (0-450) /uL Baso # (Auto) (0-100) /uL ABG pH 7.22 L* (7.35-7.45) ABG pCO2 51.6 H (35-45) mmHg ABG pO2 92 (80-100) mmHg ABG HCO3 21 L (22-26) mmol/L ABG Total CO2 23 (21-31) mmol/L ABG O2 Saturation 95 (95-100) % ABG Base Excess -6.0 L (-2-2) mmol/L FiO2 30 Sodium (137-145) mmol/L Potassium (3.4-5.1) mmol/L Chloride (98-107) mmol/L Carbon Dioxide (22-32) mmol/L BUN (7-17) mg/dL Creatinine (0.52-1.04) mg/dL Estimated GFR (>60) mL/min BUN/Creatinine Ratio (6-22) Glucose (70-100) mg/dL Lactate (0.7-2.1) mmol/L Calcium (8.4-10.2) mg/dL Magnesium (1.6-2.3) mg/dL Total Creatine Kinase (30-135) U/L CK-MB (CK-2) CK-MB (CK-2) Rel Index Troponin I (0.01-0.034) ng/mL Procalcitonin (<0.5) ng/mL HCG, Quant mIU/mL Urine Color Urine Appearance Urine pH (4.5-8.0) Ur Specific [place] (1.000-1.035) Urine Protein (Negative) Urine Glucose (UA) (Negative) g/dL Urine Ketones (NEGATIVE) Urine Occult Blood (Negative) Urine Nitrate (Negative) Urine Bilirubin (NEGATIVE) Urine Urobilinogen (0.2) E.U./dL Ur Leukocyte Esterase (NEGATIVE) Urine RBC (0-5/HPF) Urine WBC (0-5/HPF) Ur Squamous Epith Cells (0-5/HPF) Urine Bacteria (None) Ur Culture Indicated? Micro UA Comment Urine Test (Negative) Nasal Screen MRSA (PCR) (Negative) Urine Opiates Screen Negative (Negative) Ur Oxycodone Screen Negative (Negative) Urine Methadone Screen Negative (Negative) Ur Barbiturates Screen Negative (Negative) U Tricyclic Antidepress Negative (Negative) Ur Phencyclidine Scrn Negative (Negative) Ur Amphetamines Screen Positive H (Negative) U Methamphetamines Scrn Positive H (Negative) Ur MDMA Scrn (Ecstasy) Negative (Negative) U Benzodiazepines Scrn Negative (Negative) Urine Cocaine Screen Negative (Negative) U Marijuana (THC) Screen Negative (Negative) Influenza A & B (PCR) Negative (Negative) 09/26/18 09/26/18 09/26/18 Range/Units 02:15 02:15 02:15 WBC 16.3 H (4.5-11.0) X10^3/uL RBC 4.46 (4.0-5.2) X10^6/uL Hgb 13.3 (12.0-16.0) g/dL Hct 39.2 (36-46) % MCV 87.9 (80-100) fL MCH 29.8 (26-34) PG MCHC 33.9 (30-36) % RDW 14.4 (11.6-14.8) % Plt Count 374 (150-400) X10^3/uL Neut % (Auto) 94.6 H D (50-75) % Lymph % (Auto) 3.5 L (25-40) % Bibb % (Auto) 1.6 L (3-14) % Eos % (Auto) 0.0 L (2-4) % Baso % (Auto) 0.3 (0-2) % Neut # (Auto) 46992 H (8968-7732) /uL Lymph # (Auto) 600 L (0198-7051) /uL Bibb # (Auto) 300 (0-900) /uL Eos # (Auto) 0 (0-450) /uL Baso # (Auto) 0 (0-100) /uL ABG pH (7.35-7.45) ABG pCO2 (35-45) mmHg ABG pO2 (80-100) mmHg ABG HCO3 (22-26) mmol/L ABG Total CO2 (21-31) mmol/L ABG O2 Saturation (95-100) % ABG Base Excess (-2-2) mmol/L FiO2 Sodium 139 (137-145) mmol/L Potassium 4.5 (3.4-5.1) mmol/L Chloride 108 H (98-107) mmol/L Carbon Dioxide 17 L (22-32) mmol/L BUN 10 (7-17) mg/dL Creatinine 0.60 (0.52-1.04) mg/dL Estimated GFR > 60.0 (>60) mL/min BUN/Creatinine Ratio 16.7 (6-22) Glucose 172 H (70-100) mg/dL Lactate (0.7-2.1) mmol/L Calcium 8.6 (8.4-10.2) mg/dL Magnesium (1.6-2.3) mg/dL Total Creatine Kinase (30-135) U/L CK-MB (CK-2) CK-MB (CK-2) Rel Index Troponin I (0.01-0.034) ng/mL Procalcitonin < 0.05 (<0.5) ng/mL HCG, Quant mIU/mL Urine Color Urine Appearance Urine pH (4.5-8.0) Ur Specific [place] (1.000-1.035) Urine Protein (Negative) Urine Glucose (UA) (Negative) g/dL Urine Ketones (NEGATIVE) Urine Occult Blood (Negative) Urine Nitrate (Negative) Urine Bilirubin (NEGATIVE) Urine Urobilinogen (0.2) E.U./dL Ur Leukocyte Esterase (NEGATIVE) Urine RBC (0-5/HPF) Urine WBC (0-5/HPF) Ur Squamous Epith Cells (0-5/HPF) Urine Bacteria (None) Ur Culture Indicated? Micro UA Comment Urine Test (Negative) Nasal Screen MRSA (PCR) (Negative) Urine Opiates Screen (Negative) Ur Oxycodone Screen (Negative) Urine Methadone Screen (Negative) Ur Barbiturates Screen (Negative) U Tricyclic Antidepress (Negative) Ur Phencyclidine Scrn (Negative) Ur Amphetamines Screen (Negative) U Methamphetamines Scrn (Negative) Ur MDMA Scrn (Ecstasy) (Negative) U Benzodiazepines Scrn (Negative) Urine Cocaine Screen (Negative) U Marijuana (THC) Screen (Negative) Influenza A & B (PCR) (Negative) 09/26/18 09/26/18 09/26/18 Range/Units 02:15 04:15 05:16 WBC (4.5-11.0) X10^3/uL RBC (4.0-5.2) X10^6/uL Hgb (12.0-16.0) g/dL Hct (36-46) % MCV (80-100) fL MCH (26-34) PG MCHC (30-36) % RDW (11.6-14.8) % Plt Count (150-400) X10^3/uL Neut % (Auto) (50-75) % Lymph % (Auto) (25-40) % Bibb % (Auto) (3-14) % Eos % (Auto) (2-4) % Baso % (Auto) (0-2) % Neut # (Auto) (9909-4811) /uL Lymph # (Auto) (5096-6828) /uL Bibb # (Auto) (0-900) /uL Eos # (Auto) (0-450) /uL Baso # (Auto) (0-100) /uL ABG pH 7.21 L* (7.35-7.45) ABG pCO2 32.8 L (35-45) mmHg ABG pO2 124 H (80-100) mmHg ABG HCO3 13 L (22-26) mmol/L ABG Total CO2 14 L (21-31) mmol/L ABG O2 Saturation 98 (95-100) % ABG Base Excess -15.0 L (-2-2) mmol/L FiO2 30 Sodium (137-145) mmol/L Potassium (3.4-5.1) mmol/L Chloride (98-107) mmol/L Carbon Dioxide (22-32) mmol/L BUN (7-17) mg/dL Creatinine (0.52-1.04) mg/dL Estimated GFR (>60) mL/min BUN/Creatinine Ratio (6-22) Glucose (70-100) mg/dL Lactate 8.1 H 7.8 H (0.7-2.1) mmol/L Calcium (8.4-10.2) mg/dL Magnesium (1.6-2.3) mg/dL Total Creatine Kinase (30-135) U/L CK-MB (CK-2) CK-MB (CK-2) Rel Index Troponin I (0.01-0.034) ng/mL Procalcitonin (<0.5) ng/mL HCG, Quant mIU/mL Urine Color Urine Appearance Urine pH (4.5-8.0) Ur Specific [place] (1.000-1.035) Urine Protein (Negative) Urine Glucose (UA) (Negative) g/dL Urine Ketones (NEGATIVE) Urine Occult Blood (Negative) Urine Nitrate (Negative) Urine Bilirubin (NEGATIVE) Urine Urobilinogen (0.2) E.U./dL Ur Leukocyte Esterase (NEGATIVE) Urine RBC (0-5/HPF) Urine WBC (0-5/HPF) Ur Squamous Epith Cells (0-5/HPF) Urine Bacteria (None) Ur Culture Indicated? Micro UA Comment Urine Test (Negative) Nasal Screen MRSA (PCR) (Negative) Urine Opiates Screen (Negative) Ur Oxycodone Screen (Negative) Urine Methadone Screen (Negative) Ur Barbiturates Screen (Negative) U Tricyclic Antidepress (Negative) Ur Phencyclidine Scrn (Negative) Ur Amphetamines Screen (Negative) U Methamphetamines Scrn (Negative) Ur MDMA Scrn (Ecstasy) (Negative) U Benzodiazepines Scrn (Negative) Urine Cocaine Screen (Negative) U Marijuana (THC) Screen (Negative) Influenza A & B (PCR) (Negative) 09/26/18 Range/Units 07:24 WBC 18.9 H (4.5-11.0) X10^3/uL RBC 4.20 (4.0-5.2) X10^6/uL Hgb 12.1 (12.0-16.0) g/dL Hct 38.1 (36-46) % MCV 90.8 (80-100) fL MCH 28.8 (26-34) PG MCHC 31.7 (30-36) % RDW 14.6 (11.6-14.8) % Plt Count 334 (150-400) X10^3/uL Neut % (Auto) 93.2 H (50-75) % Lymph % (Auto) 3.5 L (25-40) % Bibb % (Auto) 3.2 (3-14) % Eos % (Auto) 0.0 L (2-4) % Baso % (Auto) 0.1 (0-2) % Neut # (Auto) 07978 H (9165-3596) /uL Lymph # (Auto) 700 L (8639-6051) /uL Bibb # (Auto) 600 (0-900) /uL Eos # (Auto) 0 (0-450) /uL Baso # (Auto) 0 (0-100) /uL ABG pH (7.35-7.45) ABG pCO2 (35-45) mmHg ABG pO2 (80-100) mmHg ABG HCO3 (22-26) mmol/L ABG Total CO2 (21-31) mmol/L ABG O2 Saturation (95-100) % ABG Base Excess (-2-2) mmol/L FiO2 Sodium (137-145) mmol/L Potassium (3.4-5.1) mmol/L Chloride (98-107) mmol/L Carbon Dioxide (22-32) mmol/L BUN (7-17) mg/dL Creatinine (0.52-1.04) mg/dL Estimated GFR (>60) mL/min BUN/Creatinine Ratio (6-22) Glucose (70-100) mg/dL Lactate (0.7-2.1) mmol/L Calcium (8.4-10.2) mg/dL Magnesium (1.6-2.3) mg/dL Total Creatine Kinase (30-135) U/L CK-MB (CK-2) CK-MB (CK-2) Rel Index Troponin I (0.01-0.034) ng/mL Procalcitonin (<0.5) ng/mL HCG, Quant mIU/mL Urine Color Urine Appearance Urine pH (4.5-8.0) Ur Specific [place] (1.000-1.035) Urine Protein (Negative) Urine Glucose (UA) (Negative) g/dL Urine Ketones (NEGATIVE) Urine Occult Blood (Negative) Urine Nitrate (Negative) Urine Bilirubin (NEGATIVE) Urine Urobilinogen (0.2) E.U./dL Ur Leukocyte Esterase (NEGATIVE) Urine RBC (0-5/HPF) Urine WBC (0-5/HPF) Ur Squamous Epith Cells (0-5/HPF) Urine Bacteria (None) Ur Culture Indicated? Micro UA Comment Urine Test (Negative) Nasal Screen MRSA (PCR) (Negative) Urine Opiates Screen (Negative) Ur Oxycodone Screen (Negative) Urine Methadone Screen (Negative) Ur Barbiturates Screen (Negative) U Tricyclic Antidepress (Negative) Ur Phencyclidine Scrn (Negative) Ur Amphetamines Screen (Negative) U Methamphetamines Scrn (Negative) Ur MDMA Scrn (Ecstasy) (Negative) U Benzodiazepines Scrn (Negative) Urine Cocaine Screen (Negative) U Marijuana (THC) Screen (Negative) Influenza A & B (PCR) (Negative) <Jennyfer Cardoza, DO - Last Filed: 09/26/18 07:45> Lab Data Lab Results 09/25/18 09/25/18 09/25/18 Range/Units 01:04 14:15 14:15 WBC 17.5 H (4.5-11.0) X10^3/uL RBC 4.72 (4.0-5.2) X10^6/uL Hgb 13.8 (12.0-16.0) g/dL Hct 41.8 (36-46) % MCV 88.7 (80-100) fL MCH 29.2 (26-34) PG MCHC 32.9 (30-36) % RDW 14.1 (11.6-14.8) % Plt Count 424 H (150-400) X10^3/uL Neut % (Auto) 72.7 (50-75) % Lymph % (Auto) 13.8 L (25-40) % Bibb % (Auto) 6.6 (3-14) % Eos % (Auto) 6.2 H (2-4) % Baso % (Auto) 0.7 (0-2) % Neut # (Auto) 85468 H (4071-7819) /uL Lymph # (Auto) 2400 (6062-6347) /uL Bibb # (Auto) 1200 H (0-900) /uL Eos # (Auto) 1100 H (0-450) /uL Baso # (Auto) 100 (0-100) /uL ABG pH 7.24 L* (7.35-7.45) ABG pCO2 39.3 (35-45) mmHg ABG pO2 143 H (80-100) mmHg ABG HCO3 17 L (22-26) mmol/L ABG Total CO2 18 L (21-31) mmol/L ABG O2 Saturation 99 (95-100) % ABG Base Excess -11.0 L (-2-2) mmol/L FiO2 30 Sodium 142 (137-145) mmol/L Potassium 3.6 (3.4-5.1) mmol/L Chloride 108 H (98-107) mmol/L Carbon Dioxide 25 (22-32) mmol/L BUN 12 (7-17) mg/dL Creatinine 0.70 (0.52-1.04) mg/dL Estimated GFR > 60.0 (>60) mL/min BUN/Creatinine Ratio 17.1 (6-22) Glucose 109 H (70-100) mg/dL Lactate (0.7-2.1) mmol/L Calcium 8.7 (8.4-10.2) mg/dL Magnesium 2.1 (1.6-2.3) mg/dL Total Creatine Kinase 45 (30-135) U/L CK-MB (CK-2) TNP CK-MB (CK-2) Rel Index TNP Troponin I < 0.012 (0.01-0.034) ng/mL Procalcitonin (<0.5) ng/mL HCG, Quant < 2.39 mIU/mL Urine Color Urine Appearance Urine pH (4.5-8.0) Ur Specific [place] (1.000-1.035) Urine Protein (Negative) Urine Glucose (UA) (Negative) g/dL Urine Ketones (NEGATIVE) Urine Occult Blood (Negative) Urine Nitrate (Negative) Urine Bilirubin (NEGATIVE) Urine Urobilinogen (0.2) E.U./dL Ur Leukocyte Esterase (NEGATIVE) Urine RBC (0-5/HPF) Urine WBC (0-5/HPF) Ur Squamous Epith Cells (0-5/HPF) Urine Bacteria (None) Ur Culture Indicated? Micro UA Comment Urine Test (Negative) Nasal Screen MRSA (PCR) (Negative) Urine Opiates Screen (Negative) Ur Oxycodone Screen (Negative) Urine Methadone Screen (Negative) Ur Barbiturates Screen (Negative) U Tricyclic Antidepress (Negative) Ur Phencyclidine Scrn (Negative) Ur Amphetamines Screen (Negative) U Methamphetamines Scrn (Negative) Ur MDMA Scrn (Ecstasy) (Negative) U Benzodiazepines Scrn (Negative) Urine Cocaine Screen (Negative) U Marijuana (THC) Screen (Negative) Influenza A & B (PCR) (Negative) 09/25/18 09/25/18 09/25/18 Range/Units 14:42 15:00 16:02 WBC (4.5-11.0) X10^3/uL RBC (4.0-5.2) X10^6/uL Hgb (12.0-16.0) g/dL Hct (36-46) % MCV (80-100) fL MCH (26-34) PG MCHC (30-36) % RDW (11.6-14.8) % Plt Count (150-400) X10^3/uL Neut % (Auto) (50-75) % Lymph % (Auto) (25-40) % Bibb % (Auto) (3-14) % Eos % (Auto) (2-4) % Baso % (Auto) (0-2) % Neut # (Auto) (2451-4368) /uL Lymph # (Auto) (9894-1266) /uL Bibb # (Auto) (0-900) /uL Eos # (Auto) (0-450) /uL Baso # (Auto) (0-100) /uL ABG pH 7.23 L* 7.24 L* (7.35-7.45) ABG pCO2 59.2 H 57.4 H (35-45) mmHg ABG pO2 254 H* 149 H (80-100) mmHg ABG HCO3 25 25 (22-26) mmol/L ABG Total CO2 26 26 (21-31) mmol/L ABG O2 Saturation 100 99 (95-100) % ABG Base Excess -3.0 L -3.0 L (-2-2) mmol/L FiO2 0.50 0.35 Sodium (137-145) mmol/L Potassium (3.4-5.1) mmol/L Chloride (98-107) mmol/L Carbon Dioxide (22-32) mmol/L BUN (7-17) mg/dL Creatinine (0.52-1.04) mg/dL Estimated GFR (>60) mL/min BUN/Creatinine Ratio (6-22) Glucose (70-100) mg/dL Lactate 1.0 (0.7-2.1) mmol/L Calcium (8.4-10.2) mg/dL Magnesium (1.6-2.3) mg/dL Total Creatine Kinase (30-135) U/L CK-MB (CK-2) CK-MB (CK-2) Rel Index Troponin I (0.01-0.034) ng/mL Procalcitonin (<0.5) ng/mL HCG, Quant mIU/mL Urine Color Urine Appearance Urine pH (4.5-8.0) Ur Specific [place] (1.000-1.035) Urine Protein (Negative) Urine Glucose (UA) (Negative) g/dL Urine Ketones (NEGATIVE) Urine Occult Blood (Negative) Urine Nitrate (Negative) Urine Bilirubin (NEGATIVE) Urine Urobilinogen (0.2) E.U./dL Ur Leukocyte Esterase (NEGATIVE) Urine RBC (0-5/HPF) Urine WBC (0-5/HPF) Ur Squamous Epith Cells (0-5/HPF) Urine Bacteria (None) Ur Culture Indicated? Micro UA Comment Urine Test (Negative) Nasal Screen MRSA (PCR) (Negative) Urine Opiates Screen (Negative) Ur Oxycodone Screen (Negative) Urine Methadone Screen (Negative) Ur Barbiturates Screen (Negative) U Tricyclic Antidepress (Negative) Ur Phencyclidine Scrn (Negative) Ur Amphetamines Screen (Negative) U Methamphetamines Scrn (Negative) Ur MDMA Scrn (Ecstasy) (Negative) U Benzodiazepines Scrn (Negative) Urine Cocaine Screen (Negative) U Marijuana (THC) Screen (Negative) Influenza A & B (PCR) (Negative) 09/25/18 09/25/18 09/25/18 Range/Units 17:17 19:10 19:10 WBC (4.5-11.0) X10^3/uL RBC (4.0-5.2) X10^6/uL Hgb (12.0-16.0) g/dL Hct (36-46) % MCV (80-100) fL MCH (26-34) PG MCHC (30-36) % RDW (11.6-14.8) % Plt Count (150-400) X10^3/uL Neut % (Auto) (50-75) % Lymph % (Auto) (25-40) % Bibb % (Auto) (3-14) % Eos % (Auto) (2-4) % Baso % (Auto) (0-2) % Neut # (Auto) (8781-2837) /uL Lymph # (Auto) (6467-1327) /uL Bibb # (Auto) (0-900) /uL Eos # (Auto) (0-450) /uL Baso # (Auto) (0-100) /uL ABG pH (7.35-7.45) ABG pCO2 (35-45) mmHg ABG pO2 (80-100) mmHg ABG HCO3 (22-26) mmol/L ABG Total CO2 (21-31) mmol/L ABG O2 Saturation (95-100) % ABG Base Excess (-2-2) mmol/L FiO2 Sodium (137-145) mmol/L Potassium (3.4-5.1) mmol/L Chloride (98-107) mmol/L Carbon Dioxide (22-32) mmol/L BUN (7-17) mg/dL Creatinine (0.52-1.04) mg/dL Estimated GFR (>60) mL/min BUN/Creatinine Ratio (6-22) Glucose (70-100) mg/dL Lactate (0.7-2.1) mmol/L Calcium (8.4-10.2) mg/dL Magnesium (1.6-2.3) mg/dL Total Creatine Kinase (30-135) U/L CK-MB (CK-2) CK-MB (CK-2) Rel Index Troponin I (0.01-0.034) ng/mL Procalcitonin (<0.5) ng/mL HCG, Quant mIU/mL Urine Color Yellow Urine Appearance Slightly cloudy Urine pH 5.5 (4.5-8.0) Ur Specific [place] >=1.030 H (1.000-1.035) Urine Protein Negative (Negative) Urine Glucose (UA) Trace H (Negative) g/dL Urine Ketones Negative (NEGATIVE) Urine Occult Blood Trace-lysed (Negative) Urine Nitrate Positive H (Negative) Urine Bilirubin Negative (NEGATIVE) Urine Urobilinogen 0.2 (0.2) E.U./dL Ur Leukocyte Esterase Trace H (NEGATIVE) Urine RBC None seen (0-5/HPF) Urine WBC 0-1/hpf (0-5/HPF) Ur Squamous Epith Cells 1-5 /hpf (0-5/HPF) Urine Bacteria Many (>30) H (None) Ur Culture Indicated? Specimen cultured Micro UA Comment . Urine Test Negative (Negative) Nasal Screen MRSA (PCR) Positive for mrsa H (Negative) Urine Opiates Screen (Negative) Ur Oxycodone Screen (Negative) Urine Methadone Screen (Negative) Ur Barbiturates Screen (Negative) U Tricyclic Antidepress (Negative) Ur Phencyclidine Scrn (Negative) Ur Amphetamines Screen (Negative) U Methamphetamines Scrn (Negative) Ur MDMA Scrn (Ecstasy) (Negative) U Benzodiazepines Scrn (Negative) Urine Cocaine Screen (Negative) U Marijuana (THC) Screen (Negative) Influenza A & B (PCR) (Negative) 09/25/18 09/25/18 09/25/18 Range/Units 19:10 19:15 20:12 WBC (4.5-11.0) X10^3/uL RBC (4.0-5.2) X10^6/uL Hgb (12.0-16.0) g/dL Hct (36-46) % MCV (80-100) fL MCH (26-34) PG MCHC (30-36) % RDW (11.6-14.8) % Plt Count (150-400) X10^3/uL Neut % (Auto) (50-75) % Lymph % (Auto) (25-40) % Bibb % (Auto) (3-14) % Eos % (Auto) (2-4) % Baso % (Auto) (0-2) % Neut # (Auto) (2377-8667) /uL Lymph # (Auto) (6166-5120) /uL Bibb # (Auto) (0-900) /uL Eos # (Auto) (0-450) /uL Baso # (Auto) (0-100) /uL ABG pH 7.22 L* (7.35-7.45) ABG pCO2 51.6 H (35-45) mmHg ABG pO2 92 (80-100) mmHg ABG HCO3 21 L (22-26) mmol/L ABG Total CO2 23 (21-31) mmol/L ABG O2 Saturation 95 (95-100) % ABG Base Excess -6.0 L (-2-2) mmol/L FiO2 30 Sodium (137-145) mmol/L Potassium (3.4-5.1) mmol/L Chloride (98-107) mmol/L Carbon Dioxide (22-32) mmol/L BUN (7-17) mg/dL Creatinine (0.52-1.04) mg/dL Estimated GFR (>60) mL/min BUN/Creatinine Ratio (6-22) Glucose (70-100) mg/dL Lactate (0.7-2.1) mmol/L Calcium (8.4-10.2) mg/dL Magnesium (1.6-2.3) mg/dL Total Creatine Kinase (30-135) U/L CK-MB (CK-2) CK-MB (CK-2) Rel Index Troponin I (0.01-0.034) ng/mL Procalcitonin (<0.5) ng/mL HCG, Quant mIU/mL Urine Color Urine Appearance Urine pH (4.5-8.0) Ur Specific [place] (1.000-1.035) Urine Protein (Negative) Urine Glucose (UA) (Negative) g/dL Urine Ketones (NEGATIVE) Urine Occult Blood (Negative) Urine Nitrate (Negative) Urine Bilirubin (NEGATIVE) Urine Urobilinogen (0.2) E.U./dL Ur Leukocyte Esterase (NEGATIVE) Urine RBC (0-5/HPF) Urine WBC (0-5/HPF) Ur Squamous Epith Cells (0-5/HPF) Urine Bacteria (None) Ur Culture Indicated? Micro UA Comment Urine Test (Negative) Nasal Screen MRSA (PCR) (Negative) Urine Opiates Screen Negative (Negative) Ur Oxycodone Screen Negative (Negative) Urine Methadone Screen Negative (Negative) Ur Barbiturates Screen Negative (Negative) U Tricyclic Antidepress Negative (Negative) Ur Phencyclidine Scrn Negative (Negative) Ur Amphetamines Screen Positive H (Negative) U Methamphetamines Scrn Positive H (Negative) Ur MDMA Scrn (Ecstasy) Negative (Negative) U Benzodiazepines Scrn Negative (Negative) Urine Cocaine Screen Negative (Negative) U Marijuana (THC) Screen Negative (Negative) Influenza A & B (PCR) Negative (Negative) 09/26/18 09/26/18 09/26/18 Range/Units 02:15 02:15 02:15 WBC 16.3 H (4.5-11.0) X10^3/uL RBC 4.46 (4.0-5.2) X10^6/uL Hgb 13.3 (12.0-16.0) g/dL Hct 39.2 (36-46) % MCV 87.9 (80-100) fL MCH 29.8 (26-34) PG MCHC 33.9 (30-36) % RDW 14.4 (11.6-14.8) % Plt Count 374 (150-400) X10^3/uL Neut % (Auto) 94.6 H D (50-75) % Lymph % (Auto) 3.5 L (25-40) % Bibb % (Auto) 1.6 L (3-14) % Eos % (Auto) 0.0 L (2-4) % Baso % (Auto) 0.3 (0-2) % Neut # (Auto) 62758 H (4210-0525) /uL Lymph # (Auto) 600 L (0965-7407) /uL Bibb # (Auto) 300 (0-900) /uL Eos # (Auto) 0 (0-450) /uL Baso # (Auto) 0 (0-100) /uL ABG pH (7.35-7.45) ABG pCO2 (35-45) mmHg ABG pO2 (80-100) mmHg ABG HCO3 (22-26) mmol/L ABG Total CO2 (21-31) mmol/L ABG O2 Saturation (95-100) % ABG Base Excess (-2-2) mmol/L FiO2 Sodium 139 (137-145) mmol/L Potassium 4.5 (3.4-5.1) mmol/L Chloride 108 H (98-107) mmol/L Carbon Dioxide 17 L (22-32) mmol/L BUN 10 (7-17) mg/dL Creatinine 0.60 (0.52-1.04) mg/dL Estimated GFR > 60.0 (>60) mL/min BUN/Creatinine Ratio 16.7 (6-22) Glucose 172 H (70-100) mg/dL Lactate (0.7-2.1) mmol/L Calcium 8.6 (8.4-10.2) mg/dL Magnesium (1.6-2.3) mg/dL Total Creatine Kinase (30-135) U/L CK-MB (CK-2) CK-MB (CK-2) Rel Index Troponin I (0.01-0.034) ng/mL Procalcitonin < 0.05 (<0.5) ng/mL HCG, Quant mIU/mL Urine Color Urine Appearance Urine pH (4.5-8.0) Ur Specific [place] (1.000-1.035) Urine Protein (Negative) Urine Glucose (UA) (Negative) g/dL Urine Ketones (NEGATIVE) Urine Occult Blood (Negative) Urine Nitrate (Negative) Urine Bilirubin (NEGATIVE) Urine Urobilinogen (0.2) E.U./dL Ur Leukocyte Esterase (NEGATIVE) Urine RBC (0-5/HPF) Urine WBC (0-5/HPF) Ur Squamous Epith Cells (0-5/HPF) Urine Bacteria (None) Ur Culture Indicated? Micro UA Comment Urine Test (Negative) Nasal Screen MRSA (PCR) (Negative) Urine Opiates Screen (Negative) Ur Oxycodone Screen (Negative) Urine Methadone Screen (Negative) Ur Barbiturates Screen (Negative) U Tricyclic Antidepress (Negative) Ur Phencyclidine Scrn (Negative) Ur Amphetamines Screen (Negative) U Methamphetamines Scrn (Negative) Ur MDMA Scrn (Ecstasy) (Negative) U Benzodiazepines Scrn (Negative) Urine Cocaine Screen (Negative) U Marijuana (THC) Screen (Negative) Influenza A & B (PCR) (Negative) 09/26/18 09/26/18 09/26/18 Range/Units 02:15 04:15 05:16 WBC (4.5-11.0) X10^3/uL RBC (4.0-5.2) X10^6/uL Hgb (12.0-16.0) g/dL Hct (36-46) % MCV (80-100) fL MCH (26-34) PG MCHC (30-36) % RDW (11.6-14.8) % Plt Count (150-400) X10^3/uL Neut % (Auto) (50-75) % Lymph % (Auto) (25-40) % Bibb % (Auto) (3-14) % Eos % (Auto) (2-4) % Baso % (Auto) (0-2) % Neut # (Auto) (9746-3979) /uL Lymph # (Auto) (5242-5631) /uL Bibb # (Auto) (0-900) /uL Eos # (Auto) (0-450) /uL Baso # (Auto) (0-100) /uL ABG pH 7.21 L* (7.35-7.45) ABG pCO2 32.8 L (35-45) mmHg ABG pO2 124 H (80-100) mmHg ABG HCO3 13 L (22-26) mmol/L ABG Total CO2 14 L (21-31) mmol/L ABG O2 Saturation 98 (95-100) % ABG Base Excess -15.0 L (-2-2) mmol/L FiO2 30 Sodium (137-145) mmol/L Potassium (3.4-5.1) mmol/L Chloride (98-107) mmol/L Carbon Dioxide (22-32) mmol/L BUN (7-17) mg/dL Creatinine (0.52-1.04) mg/dL Estimated GFR (>60) mL/min BUN/Creatinine Ratio (6-22) Glucose (70-100) mg/dL Lactate 8.1 H 7.8 H (0.7-2.1) mmol/L Calcium (8.4-10.2) mg/dL Magnesium (1.6-2.3) mg/dL Total Creatine Kinase (30-135) U/L CK-MB (CK-2) CK-MB (CK-2) Rel Index Troponin I (0.01-0.034) ng/mL Procalcitonin (<0.5) ng/mL HCG, Quant mIU/mL Urine Color Urine Appearance Urine pH (4.5-8.0) Ur Specific [place] (1.000-1.035) Urine Protein (Negative) Urine Glucose (UA) (Negative) g/dL Urine Ketones (NEGATIVE) Urine Occult Blood (Negative) Urine Nitrate (Negative) Urine Bilirubin (NEGATIVE) Urine Urobilinogen (0.2) E.U./dL Ur Leukocyte Esterase (NEGATIVE) Urine RBC (0-5/HPF) Urine WBC (0-5/HPF) Ur Squamous Epith Cells (0-5/HPF) Urine Bacteria (None) Ur Culture Indicated? Micro UA Comment Urine Test (Negative) Nasal Screen MRSA (PCR) (Negative) Urine Opiates Screen (Negative) Ur Oxycodone Screen (Negative) Urine Methadone Screen (Negative) Ur Barbiturates Screen (Negative) U Tricyclic Antidepress (Negative) Ur Phencyclidine Scrn (Negative) Ur Amphetamines Screen (Negative) U Methamphetamines Scrn (Negative) Ur MDMA Scrn (Ecstasy) (Negative) U Benzodiazepines Scrn (Negative) Urine Cocaine Screen (Negative) U Marijuana (THC) Screen (Negative) Influenza A & B (PCR) (Negative) 09/26/18 Range/Units 07:24 WBC 18.9 H (4.5-11.0) X10^3/uL RBC 4.20 (4.0-5.2) X10^6/uL Hgb 12.1 (12.0-16.0) g/dL Hct 38.1 (36-46) % MCV 90.8 (80-100) fL MCH 28.8 (26-34) PG MCHC 31.7 (30-36) % RDW 14.6 (11.6-14.8) % Plt Count 334 (150-400) X10^3/uL Neut % (Auto) 93.2 H (50-75) % Lymph % (Auto) 3.5 L (25-40) % Bibb % (Auto) 3.2 (3-14) % Eos % (Auto) 0.0 L (2-4) % Baso % (Auto) 0.1 (0-2) % Neut # (Auto) 39103 H (6146-2317) /uL Lymph # (Auto) 700 L (5452-4711) /uL Bibb # (Auto) 600 (0-900) /uL Eos # (Auto) 0 (0-450) /uL Baso # (Auto) 0 (0-100) /uL ABG pH (7.35-7.45) ABG pCO2 (35-45) mmHg ABG pO2 (80-100) mmHg ABG HCO3 (22-26) mmol/L ABG Total CO2 (21-31) mmol/L ABG O2 Saturation (95-100) % ABG Base Excess (-2-2) mmol/L FiO2 Sodium (137-145) mmol/L Potassium (3.4-5.1) mmol/L Chloride (98-107) mmol/L Carbon Dioxide (22-32) mmol/L BUN (7-17) mg/dL Creatinine (0.52-1.04) mg/dL Estimated GFR (>60) mL/min BUN/Creatinine Ratio (6-22) Glucose (70-100) mg/dL Lactate (0.7-2.1) mmol/L Calcium (8.4-10.2) mg/dL Magnesium (1.6-2.3) mg/dL Total Creatine Kinase (30-135) U/L CK-MB (CK-2) CK-MB (CK-2) Rel Index Troponin I (0.01-0.034) ng/mL Procalcitonin (<0.5) ng/mL HCG, Quant mIU/mL Urine Color Urine Appearance Urine pH (4.5-8.0) Ur Specific [place] (1.000-1.035) Urine Protein (Negative) Urine Glucose (UA) (Negative) g/dL Urine Ketones (NEGATIVE) Urine Occult Blood (Negative) Urine Nitrate (Negative) Urine Bilirubin (NEGATIVE) Urine Urobilinogen (0.2) E.U./dL Ur Leukocyte Esterase (NEGATIVE) Urine RBC (0-5/HPF) Urine WBC (0-5/HPF) Ur Squamous Epith Cells (0-5/HPF) Urine Bacteria (None) Ur Culture Indicated? Micro UA Comment Urine Test (Negative) Nasal Screen MRSA (PCR) (Negative) Urine Opiates Screen (Negative) Ur Oxycodone Screen (Negative) Urine Methadone Screen (Negative) Ur Barbiturates Screen (Negative) U Tricyclic Antidepress (Negative) Ur Phencyclidine Scrn (Negative) Ur Amphetamines Screen (Negative) U Methamphetamines Scrn (Negative) Ur MDMA Scrn (Ecstasy) (Negative) U Benzodiazepines Scrn (Negative) Urine Cocaine Screen (Negative) U Marijuana (THC) Screen (Negative) Influenza A & B (PCR) (Negative) <Jennyfer Cardoza DO - Last Filed: 09/26/18 07:45> Cosign ED Attending Cosignature Attestation: Patient was transferred to my care. Please see my note from the same day for rest of ER stay and admission. Supervised by Jennyfer Cardoza DO
[2018-09-25] MEDS: methylPREDNISolone 125 MG/2 ML VIAL IV (14:23)
[2018-09-25] MEDS: ALBUTEROL/IPRATROPIUM 3 ML AMPUL 9 ML INH (14:33)
--- NOTE | 2018-09-25 14:43 | DI.RAD.S_ITS ---
PROCEDURE: XR CHEST 1V INDICATIONS: asthma attack TECHNIQUE: One view of the chest was acquired. COMPARISON: [facility], , CHEST 2 VIEW, 05/10/2014, 11:12. FINDINGS: Surgical changes and devices: None. Lungs and pleura: Lungs are clear. No pleural effusions or pneumothorax. Mediastinum: Mediastinal contours appear normal. Heart size is normal. Bones and chest wall: No suspicious bony lesions. Overlying soft tissues appear unremarkable. IMPRESSION: No evidence acute pulmonary process. Dictated by: Sergey Steel M.D. on 09/25/2018 at 15:54 Approved by: Sergey Steel M.D. on 09/25/2018 at 15:55
[2018-09-25 14:55] LABS: Add Manual Diff / Slide Review NO; Basophils Absolute Auto 100 /uL (0-100); Basophils Percent Auto 0.7 % (0-2); Eosinophils Absolute Auto 1100 /uL (0-450); Eosinophils Percent Auto 6.2 % (2-4); Hematocrit 41.8 % (36-46); Hemoglobin 13.8 g/dL (12.0-16.0); Lymphocytes Absolute Auto 2400 /uL (1100-4500); Lymphocytes Percent Auto 13.8 % (25-40); Mean Corpuscular HGB Conc 32.9 % (30-36); Mean Corpuscular Hemoglobin 29.2 PG (26-34); Mean Corpuscular Volume 88.7 fL (80-100); Monocytes Absolute Auto 1200 /uL (0-900); Monocytes Percent Auto 6.6 % (3-14); Neutrophils Absolute Auto 12700 /uL (1500-7000); Neutrophils Percent Auto 72.7 % (50-75); Platelet Count 424 X10^3/uL (150-400); Red Blood Cell Count 4.72 X10^6/uL (4.0-5.2); Red Cell Distribution Width 14.1 % (11.6-14.8); White Blood Cell Count 17.5 X10^3/uL (4.5-11.0)
[2018-09-25 15:00] LABS: BUN Creatinine Ratio 17.1 (6-22); Blood Urea Nitrogen 12 mg/dL (7-17); Calcium 8.7 mg/dL (8.4-10.2); Carbon Dioxide 25 mmol/L (22-32); Chloride 108 mmol/L (98-107); Creatine Kinase 45 U/L (30-135); Estimated Glomerular Filt Rate > 60.0 mL/min (>60); Glucose 109 mg/dL (70-100); HEMOLYSIS < 15 (0-50); Magnesium 2.1 mg/dL (1.6-2.3); Potassium 3.6 mmol/L (3.4-5.1); Sodium 142 mmol/L (137-145)
[2018-09-25] MEDS: SODIUM CHLORIDE 0.9% 1,000 ML 1000 ML IV (15:04)
[2018-09-25] MEDS: MAGNESIUM SULFATE 2 GM/50 ML PIGGYBACK IV (15:05)
[2018-09-25 15:12] LABS: Troponin I < 0.012 ng/mL (0.01-0.034)
[2018-09-25 15:17] LABS: HCG Quantitative /Beta subunit < 2.39 mIU/mL
--- NOTE | 2018-09-25 15:39 | PC.NURSE ---
Pt. arrived approx 1410 with audible wheezing. Pt. unable to speak in complete sentences but pieced together that she had been having problems with asthma all day. at home (in [place]) she wasn't able to get an incentive reading. RT was called immediately when pt. arrived to room and began treatments within minutes. Pt. reports hx of anxiety and requesting anxiety medications. Once 1 mg of ativan was admin. pt. started having additional issues breathing - wearing out. Pt. moved from room 7 to room 4 and was placed on Bipap which she fought due to claustrophobia and anxiety. RT attempted to take Bipap off of pt. per her request but pt. worsened almost immediately. Pt. remains anxious and SOA. Speaking in short, agitated sentences. RT remains at BS to keep patient calm. IV continues to infuse without issues at site
--- NOTE | 2018-09-25 16:12 | ED.ASTHMA ---
HPI - Asthma General Chief Complaint: Asthma Stated Complaint: Asthma attack Time Seen by Provider: 09/25/18 14:09 Source: patient Mode of arrival: ambulatory Limitations: no limitations History of Present Illness HPI Narrative: This is a 33-year-old female comes to the emergency department for asthma attack. Patient lives in [place] but was visiting someone in the area. She comes in stating she is having difficulty breathing. She has been intubated in the past. Patient is receiving nebulized breathing treatments and was initially seen by the [facility] level. She states that she does not feel much improved. Patient is currently on prednisone 20 mg she states she has been taking this for a long period of time. She also takes theophylline 300 mg 3 times daily. She continues to smoke tobacco. Severity: severe Context: none known Associated symptoms: none Treatments Prior to Arrival: inhaled bronchodilator Related Data Current Asthma Therapy: inhaled bronchodilator Home Medications Medication Instructions Recorded Confirmed albuterol sulfate 09/25/18 lorazepam 1 mg PO QD-BID PRN 09/25/18 09/25/18 prednisone 09/25/18 Previous Rx's Medication Instructions Recorded clindamycin HCl 150 mg PO Q6H 7 Days #0 cap 01/21/16 albuterol sulfate [Proventil HFA] 0 IH SEE INSTRUCTIONS #2 ea 06/03/16 Allergies Allergy/AdvReac Type Severity Reaction Status Date / Time doxycycline Allergy Mild INFLAMED Unverified 09/15/17 11:45 IV SITE; HIVES tetracycline Allergy Mild RASH Unverified 09/15/17 11:45 hydromorphone AdvReac Mild SHAKINESS/D Unverified 09/15/17 11:45 IZZINESS morphine AdvReac Mild UPSET Unverified 09/15/17 11:45 STOMACH Review of Systems Constitutional Denies fever(s) and Denies headache(s) ENT Ears, Nose, Mouth, and Throat: Denies vertigo, Denies dizziness and Denies headache(s) Cardiovascular Denies chest pain, Reports dyspnea and Reports dyspnea on exertion Respiratory Denies chest congestion, Reports cough, Reports dyspnea, Reports dyspnea on exertion and Reports wheezing Neurologic Denies vertigo, Denies dizziness and Denies headache(s) Allergic/Immunologic Reports wheezing Exam Narrative Exam Narrative: GEN: well nourished, female, alert and oriented x 3, patient appears to be in severe distress. HEENT: Atraumatic, pupils are equal round reactive to light, extraocular movements are intact, nares are clear. HEART: Tachycardic but a regular rhythm without murmur, clicks, rubs. LUNGS:Lungs decreased bilaterally, patient has faint wheezes bilaterally, no rales, crackles, chest moves symmetrically. Patient is able to speak in 2-3 word sentences. She is quite tachypneic and appears to be uncomfortable with accessory muscle use and the SCM as well as some subcostal ABD:bowel sounds normal, soft, non-tender, no guarding, rebound, rigidity, no masses noted, no hepatosplenomegaly MSCL: Non-tender, no muscle atrophy, muscles strength 5/5 upper and lower extremities, full range of motion NEURO:CN 2-12 intact, sensation normal Initial Vital Signs Initial Vital Signs: Vital Signs Temperature 97.2 F L 09/25/18 14:10 Pulse Rate 124 H 09/25/18 14:10 Respiratory Rate 26 H 09/25/18 14:10 Blood Pressure 149/114 H 09/25/18 14:10 Pulse Oximetry 99 09/25/18 14:10 [facility] Medical History Anxiety (Acute) Asthma (Acute) Social History Smoking Status: Current every day smoker alcohol intake: never Social History Smoking Status: Current every day smoker alcohol intake: never Scores GCS Yang coma scale eye opening: Spontaneous [place] coma scale verbal response: Orientated Yang coma scale motor response: Obey commands Yang coma scale total score: 15 Course Orders Ordered: ED Orders 09/25/18 14:15 Basic Metabolic Panel Stat Complete Blood Count AUTO DIFF Stat HCG Quantitative Stat Magnesium Stat Troponin & CK Cardiac Panel Stat 09/25/18 14:42 Consult to Respiratory Therapy Evaluate & Treat Arterial Blood Gas Stat EKG-12 Lead Stat 09/25/18 14:43 XR chest 1V Stat 09/25/18 15:00 Lactate (Lactic Acid) Stat 09/25/18 16:02 Arterial Blood Gas Stat 09/25/18 18:29 Consult to Dietitian, Adult Routine Endotracheal tube suction As needed 09/25/18 18:30 Arterial Blood Gas PRN 09/25/18 18:35 Consult to Respiratory Therapy Evaluate & Treat 09/25/18 19:01 MRSA PCR Routine 09/26/18 05:00 Basic Metabolic Panel Routine Complete Blood Count AUTO DIFF Routine Enoxaparin Sodium (Lovenox) 40 mg SUBCUT DAILY RILEY Famotidine (Pepcid) 20 mg in 50 mls @ 200 mls/hr IV BID RILEY Sodium Chloride (Normal Saline 0.9%) 1,000 mls @ 100 mls/hr IV CONT RILEY Propofol (Propofol) 1,000 mg in 100 mls @ 2.136 mls/hr IV TITRATE RILEY; Protocol Methylprednisolone (Solu-Medrol 125 Mg Vial) 80 mg IV Q8H RILEY Morphine Sulfate (Morphine) 2 mg IV Q2HR PRN PRN Reason: pain Discontinued Medications Albuterol (Ventolin) 2.5 mg INH NOW ONE Stop: 09/25/18 14:08 Last Admin: 09/25/18 14:10 Dose: 2.5 mg Albuterol (Ventolin) 2.5 mg INH NOW ONE Stop: 09/25/18 14:09 Last Admin: 09/25/18 14:10 Dose: 2.5 mg Albuterol (Ventolin) 2.5 mg INH NOW ONE Stop: 09/25/18 14:10 Last Admin: 09/25/18 14:10 Dose: 2.5 mg Albuterol/Ipratropium (Duoneb) 3 ml INH NOW ONE Stop: 09/25/18 14:10 Last Admin: 09/25/18 14:11 Dose: 3 ml Albuterol/Ipratropium (Duoneb) 3 ml INH NOW ONE Stop: 09/25/18 14:22 Last Admin: 09/25/18 14:22 Dose: 3 ml Albuterol/Ipratropium (Duoneb) 9 ml INH NOW ONE Stop: 09/25/18 14:33 Last Admin: 09/25/18 14:33 Dose: 9 ml Albuterol/Ipratropium (Duoneb) 3 ml INH NOW ONE Stop: 09/25/18 14:43 Magnesium Sulfate (Magnesium Sulfate) 2 gm in 50 mls @ 25 mls/hr IV NOW ONE Stop: 09/25/18 16:41 Last Infusion: 09/25/18 17:20 Dose: 25 mls/hr Admin: 09/25/18 15:05 Dose: 25 mls/hr Sodium Chloride (Normal Saline 0.9%) 1,000 mls @ 1,000 mls/hr IV BOLUS ONE Stop: 09/25/18 15:41 Last Infusion: 09/25/18 17:20 Dose: 250 mls/hr Admin: 09/25/18 15:04 Dose: 1,000 mls/hr Lorazepam (Ativan) 1 mg IV NOW ONE Stop: 09/25/18 14:25 Last Admin: 09/25/18 14:28 Dose: Not Given Methylprednisolone (Solu-Medrol 125 Mg Vial) 125 mg IV NOW ONE Stop: 09/25/18 14:15 Last Admin: 09/25/18 14:23 Dose: 125 mg Theophylline (Respbid Er) 300 mg PO NOW ONE Stop: 09/25/18 17:27 Last Admin: 09/25/18 17:46 Dose: 300 mg Vital Signs - 8 hr 09/25/18 14:10 09/25/18 14:11 09/25/18 14:16 Temperature 97.2 F L Pulse Rate 124 H 123 H 132 H Respiratory Rate 26 H 26 H 26 H Blood Pressure 149/114 H Blood Pressure [Right Arm] Pulse Oximetry 99 100 09/25/18 14:22 09/25/18 14:33 09/25/18 16:18 Temperature Pulse Rate 139 H 135 H 118 H Respiratory Rate 22 24 34 H Blood Pressure Blood Pressure [Right Arm] 146/89 H Pulse Oximetry 100 97 100 09/25/18 16:30 09/25/18 17:00 09/25/18 17:35 Temperature Pulse Rate 120 H 121 H 123 H Respiratory Rate 27 H 19 19 Blood Pressure Blood Pressure [Right Arm] 144/97 H 139/90 Pulse Oximetry 100 100 99 09/25/18 17:50 09/25/18 17:54 Temperature 98.0 F Pulse Rate 113 H 120 H Respiratory Rate 28 H 25 H Blood Pressure 135/87 Blood Pressure [Right Arm] 177/82 H Pulse Oximetry 99 98 MDM - Asthma Lab Data Attestation: I reviewed the patient's lab results. Result diagrams: 09/25/18 14:15 09/25/18 14:15 Lab Results 09/25/18 09/25/18 09/25/18 Range/Units 14:15 14:15 14:42 WBC 17.5 H (4.5-11.0) X10^3/uL RBC 4.72 (4.0-5.2) X10^6/uL Hgb 13.8 (12.0-16.0) g/dL Hct 41.8 (36-46) % MCV 88.7 (80-100) fL MCH 29.2 (26-34) PG MCHC 32.9 (30-36) % RDW 14.1 (11.6-14.8) % Plt Count 424 H (150-400) X10^3/uL Neut % (Auto) 72.7 (50-75) % Lymph % (Auto) 13.8 L (25-40) % [place] % (Auto) 6.6 (3-14) % Eos % (Auto) 6.2 H (2-4) % Baso % (Auto) 0.7 (0-2) % Neut # (Auto) 21432 H (1594-5384) /uL Lymph # (Auto) 2400 (5723-5565) /uL [place] # (Auto) 1200 H (0-900) /uL Eos # (Auto) 1100 H (0-450) /uL Baso # (Auto) 100 (0-100) /uL ABG pH 7.23 L* (7.35-7.45) ABG pCO2 59.2 H (35-45) mmHg ABG pO2 254 H* (80-100) mmHg ABG HCO3 25 (22-26) mmol/L ABG Total CO2 26 (21-31) mmol/L ABG O2 Saturation 100 (95-100) % ABG Base Excess -3.0 L (-2-2) mmol/L FiO2 0.50 Sodium 142 (137-145) mmol/L Potassium 3.6 (3.4-5.1) mmol/L Chloride 108 H (98-107) mmol/L Carbon Dioxide 25 (22-32) mmol/L BUN 12 (7-17) mg/dL Creatinine 0.70 (0.52-1.04) mg/dL Estimated GFR > 60.0 (>60) mL/min BUN/Creatinine Ratio 17.1 (6-22) Glucose 109 H (70-100) mg/dL Lactate (0.7-2.1) mmol/L Calcium 8.7 (8.4-10.2) mg/dL Magnesium 2.1 (1.6-2.3) mg/dL Total Creatine Kinase 45 (30-135) U/L CK-MB (CK-2) TNP CK-MB (CK-2) Rel Index TNP Troponin I < 0.012 (0.01-0.034) ng/mL HCG, Quant < 2.39 mIU/mL 09/25/18 09/25/18 Range/Units 15:00 16:02 WBC (4.5-11.0) X10^3/uL RBC (4.0-5.2) X10^6/uL Hgb (12.0-16.0) g/dL Hct (36-46) % MCV (80-100) fL MCH (26-34) PG MCHC (30-36) % RDW (11.6-14.8) % Plt Count (150-400) X10^3/uL Neut % (Auto) (50-75) % Lymph % (Auto) (25-40) % [place] % (Auto) (3-14) % Eos % (Auto) (2-4) % Baso % (Auto) (0-2) % Neut # (Auto) (3137-1316) /uL Lymph # (Auto) (8622-5340) /uL [place] # (Auto) (0-900) /uL Eos # (Auto) (0-450) /uL Baso # (Auto) (0-100) /uL ABG pH 7.24 L* (7.35-7.45) ABG pCO2 57.4 H (35-45) mmHg ABG pO2 149 H (80-100) mmHg ABG HCO3 25 (22-26) mmol/L ABG Total CO2 26 (21-31) mmol/L ABG O2 Saturation 99 (95-100) % ABG Base Excess -3.0 L (-2-2) mmol/L FiO2 0.35 Sodium (137-145) mmol/L Potassium (3.4-5.1) mmol/L Chloride (98-107) mmol/L Carbon Dioxide (22-32) mmol/L BUN (7-17) mg/dL Creatinine (0.52-1.04) mg/dL Estimated GFR (>60) mL/min BUN/Creatinine Ratio (6-22) Glucose (70-100) mg/dL Lactate 1.0 (0.7-2.1) mmol/L Calcium (8.4-10.2) mg/dL Magnesium (1.6-2.3) mg/dL Total Creatine Kinase (30-135) U/L CK-MB (CK-2) CK-MB (CK-2) Rel Index Troponin I (0.01-0.034) ng/mL HCG, Quant mIU/mL ABG Data Interpretation: Patient's ABG shows a respiratory acidosis, with no metabolic compensation. PO2 is 254. Patient was placed on BiPAP she wore this for about 45 minutes, pulled it off and then about 10-15 minutes after repeat ABG shows 7.24 with 57 pCO2 and a PaO2 of 149, patient continues to have a respiratory acidosis, no metabolic compensation. It is not significantly worsened but has not significantly improved either Imaging Data Chest x-ray: Radiologist's impression: [address] [address] XRay Report Signed Patient: Whit Cohen RMR#: [id number] : 1985Acct:[id number] Age/Sex: 33 / FDate of Service: 09/25/18 Loc: ED Accession Number: [id number] Procedure: XR chest 1V Ordering Provider: Jennyfer Cardoza D.O. PROCEDURE: XR CHEST 1V INDICATIONS: asthma attack TECHNIQUE: One view of the chest was acquired. COMPARISON: [facility], CHEST 2 VIEW, 05/10/2014, 11:12. FINDINGS: Surgical changes and devices: None. Lungs and pleura: Lungs are clear. No pleural effusions or pneumothorax. Mediastinum: Mediastinal contours appear normal. Heart size is normal. Bones and chest wall: No suspicious bony lesions. Overlying soft tissues appear unremarkable. IMPRESSION: No evidence acute pulmonary process. Dictated by: Sergey Steel M.D. on 09/25/2018 at 15:54 Approved by: Sergey Steel M.D. on 09/25/2018 at 15:55 [facility] Narrative Medical decision making narrative: Patient's labs show an elevated white count which could be reactive, along with her platelets CMP shows no major abnormalities, lactate is normal patient's troponin and hCG quant turned normal. patient had 2 ABGs which both show a respiratory acidosis with no metabolic compensation. Patient has been not very compliant with wearing her BiPAP. She does complain of claustrophobia and she was given some Ativan which initially helped. Patient was a little bit more sleepy but then became more alert I began pulling off the mask. She was redirected to return at multiple times. In between these episodes as when the 2nd ABG was repeated. Patient then began demanding her theophylline, patient had been discussed with Dr. Lu who accepted at this time. Decision was not to made to intubate yet as we had been able to redirect her back onto the BiPAP and she had been maintaining for about an hour. And she was more alert, patient was also more frustrated with staff at times. Afterwards she refused to wear the BiPAP. Was transferred to the ICU and Dr. her zafar took over care. Discharge Plan Departure Patient Disposition: Admitted As Inpatient Clinical Impression: Acute hypercapnic respiratory failure, Asthma with acute exacerbation Discharge Date/Time: 09/25/18 17:25 Interventions: ED Discharge Assessment Last Done: 09/25/18 17:15 Admit Date/Time: 09/25/18 16:19 Admit Provider: Jimenez Lu
[2018-09-25 16:28] LABS: HCO3 ABG 25 mmol/L (22-26); Oxygen Saturation ABG 100 % (95-100); PCO2 ABG 59.2 mmHg (35-45); PO2 ABG 254 mmHg (80-100); TCO2 ABG 26 mmol/L (21-31)
[2018-09-25 16:29] LABS: pH ABG 7.23 (7.35-7.45)
[2018-09-25 16:31] LABS: Fractionated Inspired Oxygen 0.35; HCO3 ABG 25 mmol/L (22-26); Oxygen Saturation ABG 99 % (95-100); PCO2 ABG 57.4 mmHg (35-45); PO2 ABG 149 mmHg (80-100); TCO2 ABG 26 mmol/L (21-31)
[2018-09-25 16:32] LABS: pH ABG 7.24 (7.35-7.45)
--- NOTE | 2018-09-25 16:51 | PC.NURSE ---
Awaiting ICU bed, pt. remains frustrated about Bipap and takes it off - refusing to put it back on. This RN said that she was going to ICU about 1715 so we'll see how she does off BIPAP until then. Pt. remains angry and yelling about need for meds. aware.
--- NOTE | 2018-09-25 17:16 | PC.NURSE ---
1700 = Pt. given ice water and then Bipap applied per patient request about 1700. Patient aware she is going to ICU
[2018-09-25] MEDS: THEOPHYLLINE ER 300 MG PO (17:46)
--- NOTE | 2018-09-25 18:24 | PC.NURSE ---
Addendum entered by Carmelita Palm R.N. 09/25/18 23:39: 2230 - Pt agitated, restless, reaching for ET tube. Versed given as ordered. Restraints in place. Monitor. 2044 - Pt again acutely agitated. Versed given IVP as ordered. Following RX effectiveness at decreasing agitation. OGT inserted per MD order. SKYLAR Andres, also notified via phone of pt UA results. 2029 -CLOTH DYERDmitry at bedside. Review pt sedation, agitation, recent blood gas. Orders obtained. 1949 - Pt very agitated, sitting upright in bed, both hands reaching for tube. 3 staff members in room to keep pt from removing tubes and wires. Propofol titrated up to 55mcg/kg/min. Morphine given as ordered. 1914 - Matamoros catheter inserted per order. UA sent. IV start to right forearm. 1844 - Sedation medication given per Anesthesia order. Pt intubated. Tolerated well. Pt mom, Jhoana Jannie at bedside. Restraints initiated r/t pt anxiety and restlessness. Original Note: 1750 - Pt to room from ER. Reports feeling need to vomit. Bi-pap removed. Placed on NC. Pt in position repeatedly reports inability to breath. Tearful, anxious. Dr. Lu notified that pt is in room. Dr. Lu at bedside. Discuss intubation with pt. Pt agreeable. Pt provided mother's phone number. Notified. Pt declines to have undershirt removed. Fan at bedside. Sats 98% on 6L NC. Dr. Lu notified anesthesia for intubation. Pt tongue ring removed. RT prep vent. Pt mom at bedside. Pt car keys given to pt mom.
[2018-09-25] MEDS: PROPOFOL 200 MG/20 ML VIAL IV (18:45)
[2018-09-25] MEDS: SUCCINYLCHOLINE 100 MG/5 ML INJ 160 MG IV (18:45)
[2018-09-25] MEDS: ROCURONIUM 50 MG/5 ML VIAL 20 MG IV (18:49)
[2018-09-25] MEDS: PROPOFOL 1,000 MG/100 ML VIAL 8.544 MG IV (18:50)
[2018-09-25] MEDS: fentaNYL 100 MCG/2 ML INJ IV (18:51)
--- NOTE | 2018-09-25 18:52 | PM.HP.1 ---
History of Present Illness Date Patient Seen: 09/25/18 Time Patient Seen: 18:00 Chief complaint: asthma Narrative: Patient is a 33-year-old female with chronic poorly controlled asthma, steroid dependent, current smoker who presented to the ER with acute respiratory difficulty. Patient states her breathing got acutely worse just today. She denies any recent fever or cough. She tried her inhaler at home without improvement. On initial presentation noted to have labored breathing with respiratory rate in the 30s, anxious and difficulty talking. Her initial ABG showed pH 7.23 pCO2 59, PO2 254 bicarb 25. She was given total of 8 nebulizer treatments, IV Solu-Medrol and IV magnesium and started on BiPAP She was on BiPAP for about an hour in the ER which she barely tolerated even after IV lorazepam, due to her claustrophobia, with repeat ABG showing no significant improvement with pH 7.24, pCO2 57, PO2 149. Chest x-ray without infiltrate. I saw patient shortly after arrival in the ICU and noted her to be in severe distress with labored breathing, respiratory rate in the 30s, difficulty talking, and difficulty maintaining alertness. At that point we decided to intubate patient which was done by on-call anesthesiologist. Intubation went smoothly and she is now being managed on ventilator. Prior to intubation, patient reported prior episode of intubation about 5 or 6 years ago where she was on the ventilator for 2 weeks. She stated she is on chronic prednisone 20-40 mg daily and gets her medications filled through the ER. Her mom arrived later and noted patient with history of methamphetamine use although patient had told her she is no longer using (tox screen pending). Patient History Medical History (Updated 09/25/18 @ 16:22 by ) Anxiety (Acute) Asthma (Acute) Social History Smoking Status: Current every day smoker alcohol intake: never Family & Social History Tobacco & Substance use: Tobacco type cigarettes Smoking Status Current every day smoker Smoking packs per day 1 alcohol intake never Substance Use Type does not use Meds Home Medications Medication Instructions Recorded Confirmed Type clindamycin HCl 150 mg PO Q6H 7 Days #0 cap 01/21/16 Rx albuterol sulfate [Proventil HFA] 0 IH SEE INSTRUCTIONS #2 ea 06/03/16 Rx albuterol sulfate 09/25/18 History lorazepam 1 mg PO QD-BID PRN 09/25/18 09/25/18 History prednisone 09/25/18 History Allergies Allergy/AdvReac Type Severity Reaction Status Date / Time doxycycline Allergy Mild INFLAMED Unverified 09/15/17 11:45 IV SITE; HIVES tetracycline Allergy Mild RASH Unverified 09/15/17 11:45 hydromorphone AdvReac Mild SHAKINESS/D Unverified 09/15/17 11:45 IZZINESS morphine AdvReac Mild UPSET Unverified 09/15/17 11:45 STOMACH Review of Systems Review of Systems All systems reviewed & are unremarkable except as noted in HPI and below Exam Vital Signs (past 8 hours): - 09/25/18 14:10 09/25/18 14:11 09/25/18 14:16 Temperature 97.2 F L Pulse Rate 124 H 123 H 132 H Respiratory Rate 26 H 26 H 26 H Blood Pressure 149/114 H Blood Pressure [Right Arm] Pulse Oximetry 99 100 09/25/18 14:22 09/25/18 14:33 09/25/18 16:18 Temperature Pulse Rate 139 H 135 H 118 H Respiratory Rate 22 24 34 H Blood Pressure Blood Pressure [Right Arm] 146/89 H Pulse Oximetry 100 97 100 09/25/18 16:30 09/25/18 17:00 09/25/18 17:35 Temperature Pulse Rate 120 H 121 H 123 H Respiratory Rate 27 H 19 19 Blood Pressure Blood Pressure [Right Arm] 144/97 H 139/90 Pulse Oximetry 100 100 99 09/25/18 17:50 09/25/18 17:54 Temperature 98.0 F Pulse Rate 113 H 120 H Respiratory Rate 28 H 25 H Blood Pressure 135/87 Blood Pressure [Right Arm] 177/82 H Pulse Oximetry 99 98 Fraction of Inspired Oxygen 0.35 Oxygen Delivery Method BiPAP Oxygen Flow Rate 6 Narrative Exam Narrative: GENERAL: Lethargic female with labored breathing, anxious and difficulty talking. HEAD: Atraumatic. Normocephalic. EYES: Pupils equal, round and reactive. Extraocular motions intact. No scleral icterus. No injection or drainage. OROPHARYNX: Unremarkable NECK: Trachea midline. No JVD or lymphadenopathy. CARDIOVASCULAR: Regular rate and rhythm without murmurs, gallops, or rubs. RESPIRATORY: Diminished throughout but with diffuse inspiratory and expiratory wheeze, no crackles GASTROINTESTINAL: Abdomen nondistended, soft, non-tender. No hepato-splenomegaly, or palpable masses. EXTREMITIES: No edema. NEUROLOGICAL: Anxious, well oriented, nonfocal SKIN: warm, dry, no rash Objective Labs Result Diagrams: 09/25/18 14:15 09/25/18 14:15 Labs: Laboratory Results - last 24 hr 09/25/18 09/25/18 09/25/18 14:15 14:15 14:42 WBC 17.5 H RBC 4.72 Hgb 13.8 Hct 41.8 MCV 88.7 MCH 29.2 MCHC 32.9 RDW 14.1 Plt Count 424 H Neut % (Auto) 72.7 Lymph % (Auto) 13.8 L [place] % (Auto) 6.6 Eos % (Auto) 6.2 H Baso % (Auto) 0.7 Neut # (Auto) 51664 H Lymph # (Auto) 2400 [place] # (Auto) 1200 H Eos # (Auto) 1100 H Baso # (Auto) 100 ABG pH 7.23 L* ABG pCO2 59.2 H ABG pO2 254 H* ABG HCO3 25 ABG Total CO2 26 ABG O2 Saturation 100 ABG Base Excess -3.0 L FiO2 0.50 Sodium 142 Potassium 3.6 Chloride 108 H Carbon Dioxide 25 BUN 12 Creatinine 0.70 Estimated GFR > 60.0 BUN/Creatinine Ratio 17.1 Glucose 109 H Lactate Calcium 8.7 Magnesium 2.1 Total Creatine Kinase 45 CK-MB (CK-2) TNP CK-MB (CK-2) Rel Index TNP Troponin I < 0.012 HCG, Quant < 2.39 09/25/18 09/25/18 15:00 16:02 WBC RBC Hgb Hct MCV MCH MCHC RDW Plt Count Neut % (Auto) Lymph % (Auto) [place] % (Auto) Eos % (Auto) Baso % (Auto) Neut # (Auto) Lymph # (Auto) [place] # (Auto) Eos # (Auto) Baso # (Auto) ABG pH 7.24 L* ABG pCO2 57.4 H ABG pO2 149 H ABG HCO3 25 ABG Total CO2 26 ABG O2 Saturation 99 ABG Base Excess -3.0 L FiO2 0.35 Sodium Potassium Chloride Carbon Dioxide BUN Creatinine Estimated GFR BUN/Creatinine Ratio Glucose Lactate 1.0 Calcium Magnesium Total Creatine Kinase CK-MB (CK-2) CK-MB (CK-2) Rel Index Troponin I HCG, Quant Assessment & Plan Assessment & Plan narrative: 1. Acute asthma exacerbation with status asthmaticus and acute ventilatory respiratory failure -uncomplicated intubation 09/25/2018 due to impending respiratory arrest -manage on ventilator -Solu-Medrol 80 mg IV q.8 hours -nebulizers via ET tube -maintenance IV fluid, NS at 100 cc/hour -propofol for sedation, morphine as needed for pain -routine ventilator precautions -GI prophylaxis with famotidine -Lovenox for DVT prophylaxis -Matamoros catheter -influenza PCR 2. Acute leukocytosis -likely acute stress reaction and also patient on chronic prednisone -no pneumonia on x-ray -recheck CBC in a.m. 3. History of methamphetamine use -urine tox screen ordered 4. Chronic immunosuppression, on daily prednisone -as noted patient stated she is chronically on 20-40 mg daily prednisone for asthma 5. Cigarette dependency Total time of 60 minutes in critical care floor management during today's encounter. Quality VTE Deep Vein Thrombosis/Pulmonary Embolism Present on Admission: No
--- NOTE | 2018-09-25 19:16 | ED_ITS ---
HPI - Asthma General Chief Complaint: Asthma Stated Complaint: Asthma attack Time Seen by Provider: 09/25/18 14:09 Source: patient Mode of arrival: ambulatory Limitations: no limitations History of Present Illness HPI Narrative: This is a 33-year-old female comes to the emergency department for asthma attack. Patient lives in [place] but was visiting someone in the area. She comes in stating she is having difficulty breathing. She has been intubated in the past. Patient is receiving nebulized breathing treatments and was initially seen by the [facility] level. She states that she does not feel much improved. Patient is currently on prednisone 20 mg she states she has been taking this for a long period of time. She also takes theophylline 300 mg 3 times daily. She continues to smoke tobacco. Severity: severe Context: none known Associated symptoms: none Treatments Prior to Arrival: inhaled bronchodilator Related Data Current Asthma Therapy: inhaled bronchodilator Home Medications Medication Instructions Recorded Confirmed albuterol sulfate 09/25/18 lorazepam 1 mg PO QD-BID PRN 09/25/18 09/25/18 prednisone 09/25/18 Previous Rx's Medication Instructions Recorded clindamycin HCl 150 mg PO Q6H 7 Days #0 cap 01/21/16 albuterol sulfate [Proventil HFA] 0 IH SEE INSTRUCTIONS #2 ea 06/03/16 Allergies Allergy/AdvReac Type Severity Reaction Status Date / Time doxycycline Allergy Mild INFLAMED Unverified 09/15/17 11:45 IV SITE; HIVES tetracycline Allergy Mild RASH Unverified 09/15/17 11:45 hydromorphone AdvReac Mild SHAKINESS/D Unverified 09/15/17 11:45 IZZINESS morphine AdvReac Mild UPSET Unverified 09/15/17 11:45 STOMACH Review of Systems Constitutional Denies fever(s) and Denies headache(s) ENT Ears, Nose, Mouth, and Throat: Denies vertigo, Denies dizziness and Denies he adache(s) Cardiovascular Denies chest pain, Reports dyspnea and Reports dyspnea on exertion Respiratory Denies chest congestion, Reports cough, Reports dyspnea, Reports dyspnea on ex ertion and Reports wheezing Neurologic Denies vertigo, Denies dizziness and Denies headache(s) Allergic/Immunologic Reports wheezing Exam Narrative Exam Narrative: GEN: well nourished, female, alert and oriented x 3, patient appears to be in severe distress. HEENT: Atraumatic, pupils are equal round reactive to light, extraocular movements are intact, nares are clear. HEART: Tachycardic but a regular rhythm without murmur, clicks, rubs. LUNGS:Lungs decreased bilaterally, patient has faint wheezes bilaterally, no rales, crackles, chest moves symmetrically. Patient is able to speak in 2-3 word sentences. She is quite tachypneic and appears to be uncomfortable with accessory muscle use and the SCM as well as some subcostal ABD:bowel sounds normal, soft, non-tender, no guarding, rebound, rigidity, no masses noted, no hepatosplenomegaly MSCL: Non-tender, no muscle atrophy, muscles strength 5/5 upper and lower extremities, full range of motion NEURO:CN 2-12 intact, sensation normal Initial Vital Signs Initial Vital Signs: Vital Signs Temperature 97.2 F L 09/25/18 14:10 Pulse Rate 124 H 09/25/18 14:10 Respiratory Rate 26 H 09/25/18 14:10 Blood Pressure 149/114 H 09/25/18 14:10 Pulse Oximetry 99 09/25/18 14:10 [facility] Medical History Anxiety (Acute) Asthma (Acute) Social History Smoking Status: Current every day smoker alcohol intake: never Social History Smoking Status: Current every day smoker alcohol intake: never Scores GCS [place] coma scale eye opening: Spontaneous [place] coma scale verbal response: Orientated Yang coma scale motor response: Obey commands Yang coma scale total score: 15 Course Orders Ordered: ED Orders 09/25/18 14:15 Basic Metabolic Panel Stat Complete Blood Count AUTO DIFF Stat HCG Quantitative Stat Magnesium Stat Troponin & CK Cardiac Panel Stat 09/25/18 14:42 Consult to Respiratory Therapy Evaluate & Treat Arterial Blood Gas Stat EKG-12 Lead Stat 09/25/18 14:43 XR chest 1V Stat 09/25/18 15:00 Lactate (Lactic Acid) Stat 09/25/18 16:02 Arterial Blood Gas Stat 09/25/18 18:29 Consult to Dietitian, Adult Routine Endotracheal tube suction As needed 09/25/18 18:30 Arterial Blood Gas PRN 09/25/18 18:35 Consult to Respiratory Therapy Evaluate & Treat 09/25/18 19:01 MRSA PCR Routine 09/26/18 05:00 Basic Metabolic Panel Routine Complete Blood Count AUTO DIFF Routine Enoxaparin Sodium (Lovenox) 40 mg SUBCUT DAILY RILEY Famotidine (Pepcid) 20 mg in 50 mls @ 200 mls/hr IV BID RILEY Sodium Chloride (Normal Saline 0.9%) 1,000 mls @ 100 mls/hr IV CONT RILEY Propofol (Propofol) 1,000 mg in 100 mls @ 2.136 mls/hr IV TITRATE RILEY; Protocol Methylprednisolone (Solu-Medrol 125 Mg Vial) 80 mg IV Q8H RILEY Morphine Sulfate (Morphine) 2 mg IV Q2HR PRN PRN Reason: pain Discontinued Medications Albuterol (Ventolin) 2.5 mg INH NOW ONE Stop: 09/25/18 14:08 Last Admin: 09/25/18 14:10 Dose: 2.5 mg Albuterol (Ventolin) 2.5 mg INH NOW ONE Stop: 09/25/18 14:09 Last Admin: 09/25/18 14:10 Dose: 2.5 mg Albuterol (Ventolin) 2.5 mg INH NOW ONE Stop: 09/25/18 14:10 Last Admin: 09/25/18 14:10 Dose: 2.5 mg Albuterol/Ipratropium (Duoneb) 3 ml INH NOW ONE Stop: 09/25/18 14:10 Last Admin: 09/25/18 14:11 Dose: 3 ml Albuterol/Ipratropium (Duoneb) 3 ml INH NOW ONE Stop: 09/25/18 14:22 Last Admin: 09/25/18 14:22 Dose: 3 ml Albuterol/Ipratropium (Duoneb) 9 ml INH NOW ONE Stop: 09/25/18 14:33 Last Admin: 09/25/18 14:33 Dose: 9 ml Albuterol/Ipratropium (Duoneb) 3 ml INH NOW ONE Stop: 09/25/18 14:43 Magnesium Sulfate (Magnesium Sulfate) 2 gm in 50 mls @ 25 mls/hr IV NOW ONE Stop: 09/25/18 16:41 Last Infusion: 09/25/18 17:20 Dose: 25 mls/hr Admin: 09/25/18 15:05 Dose: 25 mls/hr Sodium Chloride (Normal Saline 0.9%) 1,000 mls @ 1,000 mls/hr IV BOLUS ONE Stop: 09/25/18 15:41 Last Infusion: 09/25/18 17:20 Dose: 250 mls/hr Admin: 09/25/18 15:04 Dose: 1,000 mls/hr Lorazepam (Ativan) 1 mg IV NOW ONE Stop: 09/25/18 14:25 Last Admin: 09/25/18 14:28 Dose: Not Given Methylprednisolone (Solu-Medrol 125 Mg Vial) 125 mg IV NOW ONE Stop: 09/25/18 14:15 Last Admin: 09/25/18 14:23 Dose: 125 mg Theophylline (Respbid Er) 300 mg PO NOW ONE Stop: 09/25/18 17:27 Last Admin: 09/25/18 17:46 Dose: 300 mg Vital Signs - 8 hr 09/25/18 14:10 09/25/18 14:11 09/25/18 14:16 Temperature 97.2 F L Pulse Rate 124 H 123 H 132 H Respiratory Rate 26 H 26 H 26 H Blood Pressure 149/114 H Blood Pressure [Right Arm] Pulse Oximetry 99 100 09/25/18 14:22 09/25/18 14:33 09/25/18 16:18 Temperature Pulse Rate 139 H 135 H 118 H Respiratory Rate 22 24 34 H Blood Pressure Blood Pressure [Right Arm] 146/89 H Pulse Oximetry 100 97 100 09/25/18 16:30 09/25/18 17:00 09/25/18 17:35 Temperature Pulse Rate 120 H 121 H 123 H Respiratory Rate 27 H 19 19 Blood Pressure Blood Pressure [Right Arm] 144/97 H 139/90 Pulse Oximetry 100 100 99 09/25/18 17:50 09/25/18 17:54 Temperature 98.0 F Pulse Rate 113 H 120 H Respiratory Rate 28 H 25 H Blood Pressure 135/87 Blood Pressure [Right Arm] 177/82 H Pulse Oximetry 99 98 MDM - Asthma Lab Data Attestation: I reviewed the patient's lab results. Result diagrams: 09/25/18 14:15 09/25/18 14:15 Lab Results 09/25/18 09/25/18 09/25/18 Range/Units 14:15 14:15 14:42 WBC 17.5 H (4.5-11.0) X10^3/uL RBC 4.72 (4.0-5.2) X10^6/uL Hgb 13.8 (12.0-16.0) g/dL Hct 41.8 (36-46) % MCV 88.7 (80-100) fL MCH 29.2 (26-34) PG MCHC 32.9 (30-36) % RDW 14.1 (11.6-14.8) % Plt Count 424 H (150-400) X10^3/uL Neut % (Auto) 72.7 (50-75) % Lymph % (Auto) 13.8 L (25-40) % [place] % (Auto) 6.6 (3-14) % Eos % (Auto) 6.2 H (2-4) % Baso % (Auto) 0.7 (0-2) % Neut # (Auto) 09522 H (6958-8709) /uL Lymph # (Auto) 2400 (7222-9156) /uL [place] # (Auto) 1200 H (0-900) /uL Eos # (Auto) 1100 H (0-450) /uL Baso # (Auto) 100 (0-100) /uL ABG pH 7.23 L* (7.35-7.45) ABG pCO2 59.2 H (35-45) mmHg ABG pO2 254 H* (80-100) mmHg ABG HCO3 25 (22-26) mmol/L ABG Total CO2 26 (21-31) mmol/L ABG O2 Saturation 100 (95-100) % ABG Base Excess -3.0 L (-2-2) mmol/L FiO2 0.50 Sodium 142 (137-145) mmol/L Potassium 3.6 (3.4-5.1) mmol/L Chloride 108 H (98-107) mmol/L Carbon Dioxide 25 (22-32) mmol/L BUN 12 (7-17) mg/dL Creatinine 0.70 (0.52-1.04) mg/dL Estimated GFR > 60.0 (>60) mL/min BUN/Creatinine Ratio 17.1 (6-22) Glucose 109 H (70-100) mg/dL Lactate (0.7-2.1) mmol/L Calcium 8.7 (8.4-10.2) mg/dL Magnesium 2.1 (1.6-2.3) mg/dL Total Creatine Kinase 45 (30-135) U/L CK-MB (CK-2) TNP CK-MB (CK-2) Rel Index TNP Troponin I < 0.012 (0.01-0.034) ng/mL HCG, Quant < 2.39 mIU/mL 09/25/18 09/25/18 Range/Units 15:00 16:02 WBC (4.5-11.0) X10^3/uL RBC (4.0-5.2) X10^6/uL Hgb (12.0-16.0) g/dL Hct (36-46) % MCV (80-100) fL MCH (26-34) PG MCHC (30-36) % RDW (11.6-14.8) % Plt Count (150-400) X10^3/uL Neut % (Auto) (50-75) % Lymph % (Auto) (25-40) % [place] % (Auto) (3-14) % Eos % (Auto) (2-4) % Baso % (Auto) (0-2) % Neut # (Auto) (3149-4496) /uL Lymph # (Auto) (1342-0098) /uL [place] # (Auto) (0-900) /uL Eos # (Auto) (0-450) /uL Baso # (Auto) (0-100) /uL ABG pH 7.24 L* (7.35-7.45) ABG pCO2 57.4 H (35-45) mmHg ABG pO2 149 H (80-100) mmHg ABG HCO3 25 (22-26) mmol/L ABG Total CO2 26 (21-31) mmol/L ABG O2 Saturation 99 (95-100) % ABG Base Excess -3.0 L (-2-2) mmol/L FiO2 0.35 Sodium (137-145) mmol/L Potassium (3.4-5.1) mmol/L Chloride (98-107) mmol/L Carbon Dioxide (22-32) mmol/L BUN (7-17) mg/dL Creatinine (0.52-1.04) mg/dL Estimated GFR (>60) mL/min BUN/Creatinine Ratio (6-22) Glucose (70-100) mg/dL Lactate 1.0 (0.7-2.1) mmol/L Calcium (8.4-10.2) mg/dL Magnesium (1.6-2.3) mg/dL Total Creatine Kinase (30-135) U/L CK-MB (CK-2) CK-MB (CK-2) Rel Index Troponin I (0.01-0.034) ng/mL HCG, Quant mIU/mL ABG Data Interpretation: Patient's ABG shows a respiratory acidosis, with no metabolic co mpensation. PO2 is 254. Patient was placed on BiPAP she wore this for about 45 minutes, pulled it off and then about 10-15 minutes after repeat ABG shows 7.24 with 57 pCO2 and a PaO2 of 149, patient continues to have a respiratory acidosis, no metabolic compensation. It is not significantly worsened but has not significantly improved either Imaging Data Chest x-ray: Radiologist's impression: [address] [address] XRay Report Signed Patient: Whit Cohen RMR#: [id number] : 1985Acct:[id number] Age/Sex: 33 / FDate of Service: 09/25/18 Loc: ED Accession Number: [id number] Procedure: XR chest 1V Ordering Provider: Jennyfer Cardoza D.O. PROCEDURE: XR CHEST 1V INDICATIONS: asthma attack TECHNIQUE: One view of the chest was acquired. COMPARISON: [facility], CHEST 2 VIEW, 05/10/2014, 11:12. FINDINGS: Surgical changes and devices: None. Lungs and pleura: Lungs are clear. No pleural effusions or pneumothorax. Mediastinum: Mediastinal contours appear normal. Heart size is normal. Bones and chest wall: No suspicious bony lesions. Overlying soft tissues appear unremarkable. IMPRESSION: No evidence acute pulmonary process. Dictated by: Sergey Steel M.D. on 09/25/2018 at 15:54 Approved by: Sergey Steel M.D. on 09/25/2018 at 15:55 MDM Narrative Medical decision making narrative: Patient's labs show an elevated white count which could be reactive, along with her platelets CMP shows no major abnormalities, lactate is normal patient's troponin and hCG quant turned normal. patient had 2 ABGs which both show a respiratory acidosis with no metabolic compensation. Patient has been not very compliant with wearing her BiPAP. She does complain of claustrophobia and she was given some Ativan which initially helped. Patient was a little bit more sleepy but then became more alert I began pulling off the mask. She was redirected to return at multiple times. In between these episodes as when the 2nd ABG was repeated. Patient then began demanding her theophylline, patient had been discussed with Dr. Lu who accepted at this time. Decision was not to made to intubate yet as we had been able to redirect her back onto the BiPAP and she had been maintaining for about an hour. And she was more alert, patient was also more frustrated with staff at times. Afterwards she refused to wear the BiPAP. Was transferred to the ICU and Dr. her zafar took over care. Discharge Plan Departure Patient Disposition: Admitted As Inpatient Clinical Impression: Acute hypercapnic respiratory failure, Asthma with acute exacerbation Discharge Date/Time: 09/25/18 17:25 Interventions: ED Discharge Assessment Last Done: 09/25/18 17:15 Admit Date/Time: 09/25/18 16:19 Admit Provider: Jimenez Lu
[2018-09-25 19:36] LABS: Influenza A and B by PCR Rapid Negative (Negative)
[2018-09-25] MEDS: MORPHINE 2 MG/ML INJ IV (19:56)
--- NOTE | 2018-09-25 20:02 | RT ---
INITIAL SETTINGS UPON INTUBATION
[2018-09-25] MEDS: methylPREDNISolone 125 MG/2 ML VIAL 80 MG IV (20:20)
[2018-09-25 20:46] LABS: Fractionated Inspired Oxygen 30; HCO3 ABG 21 mmol/L (22-26); Oxygen Saturation ABG 95 % (95-100); PCO2 ABG 51.6 mmHg (35-45); PO2 ABG 92 mmHg (80-100); TCO2 ABG 23 mmol/L (21-31)
[2018-09-25] MEDS: MIDAZOLAM 2 MG/2 ML VIAL IV ×2 (20:46→22:49)
[2018-09-25 20:47] LABS: pH ABG 7.22 (7.35-7.45)
[2018-09-25 21:15] LABS: RBC Urine None Seen (0-5/HPF)
[2018-09-25 21:17] LABS: Pregnancy Test Urine Negative (Negative)
[2018-09-25 21:20] LABS: Bilirubin Urine UA NEGATIVE (NEGATIVE); Color Urine UA YELLOW; Glucose Urine UA TRACE g/dL (Negative); Ketones Urine UA NEGATIVE (NEGATIVE); Leukocyte Esterase Urine UA TRACE (NEGATIVE); Nitrite Urine UA POSITIVE (Negative); Occult Blood Urine UA TRACE-LYSED (Negative); Protein Urine UA NEGATIVE (Negative); Specific Gravity Urine UA >=1.030 (1.000-1.035); Urobilinogen Urine UA 0.2 E.U./dL (0.2); pH Urine UA 5.5 (4.5-8.0)
[2018-09-25 21:23] LABS: Urine Amphetamines Positive (Negative); Urine Barbiturates Negative (Negative); Urine Benzodiazepines Negative (Negative); Urine Cocaine Negative (Negative); Urine MDMA Negative (Negative); Urine Methadone Negative (Negative); Urine Methamphetamines Positive (Negative); Urine Morphine/Opi cutoff 2000 Negative (Negative); Urine Oxycodone Negative (Negative); Urine Phencyclidine Negative (Negative); Urine Tetrahydrocannabinol Negative (Negative); Urine Tricyclic Antidepressant Negative (Negative)
[2018-09-25 21:24] LABS: Appearance Urine UA Slightly Cloudy
[2018-09-25 21:25] LABS: Bacteria Urine Many (>30); Squamous Epithelial Cell Urine 1-5 /HPF (0-5/HPF); WBC Urine 0-1/HPF (0-5/HPF)
[2018-09-25 21:26] LABS: Culture Indicated Urine Specimen Cultured
[2018-09-25] MEDS: PROPOFOL 1,000 MG/100 ML VIAL 23.496 MG IV (22:19)
[2018-09-25] MEDS: FAMOTIDINE 20 MG/50 ML PIGGYBACK 200 MG IV (22:20)
[2018-09-26] VITALS (16 sets, daily range): BP systolic 99–122; BP diastolic 48–76; PULSE 109–132; RESP 15–33; TEMP 36.3–37.1; O2SAT 95–100
--- NOTE | 2018-09-26 | DI.RAD.S_ITS ---
PROCEDURE: XR CHEST 1V INDICATIONS: intubated TECHNIQUE: One view of the chest was acquired. COMPARISON: [facility], CR, XR CHEST 1V, 09/25/2018, 18:51. FINDINGS: Surgical changes and devices: Endotracheal tube has been repositioned with the distal tip projecting approximately 6.1 cm above the onur. Interval placement of nasogastric tube with the distal tip extending below the level of the diaphragm and projecting off the [id number]. Lungs and pleura: The left costophrenic angle has been excluded on this examination. Lungs are otherwise clear. No pleural effusions or pneumothorax. Mediastinum: Mediastinal contours appear normal. Heart size is normal. Bones and chest wall: No suspicious bony lesions. Overlying soft tissues appear unremarkable. IMPRESSION: Support equipment as described above. Visualized portions of the lungs are clear. Dictated by: Leroy Hubbard M.D. on 09/26/2018 at 8:15 Approved by: Leroy Hubbard M.D. on 09/26/2018 at 8:17
[2018-09-26] MEDS: MORPHINE 2 MG/ML INJ IV (00:12)
--- NOTE | 2018-09-26 00:25 | PC.NURSE ---
Addendum entered by Mecca Corbin R.N. 09/26/18 06:50: 0505 Pt sitting up in bed, coughing and shaking head. Attempts to orient patient to situation made. Versed 2 mg given. Pt continues with expiratory wheezes throughout. No change in vent settings. Pt with 300cc urinary output this shift. Pt remains on 55 mcg/kg/min Propofol. Original Note: Addendum entered by Mecca Corbin R.N. 09/26/18 04:44: Lactate 8.1. Orders for blood cultures. Lab only able to obtain from one site. Dmitry HILLS notified. NS bolus initiated and IV antibiotics initiated. Pt remains in ST 115-120. BP 109/67 MAP 85. Pt has had 160 ml urinary output at this time. Dmitry HILLS aware. Original Note: Addendum entered by Mecca Corbin R.N. 09/26/18 03:15: Pt intermittantly agitated, rouses with care. Versed 2 mg given prior to oral care and suctioning. Clear secretions obtained. Pt continues with expiratory wheezes. OG tube with small amounts reddish streaked secretions. Urine cloudy in matamoros tubing. No change in Propofol drip or vent settings. RT in for assessment and shift mgr Dmitry HILLS in for assessment. Original Note: Pt sitting straight up in bed. Pt is currently on Propofol at 55 mcg/kg/min. Pt given Morphine 2 mg IV. Pt followed instruction to lie back down in bed. Bolus 2 ml Propofol given. Assessment completed. Pt remains intubated on FIO2 0.30, TV 480, PEEP +5, RR 15. Lungs with coarse wheezing. [place] draining slightly cloudy yellow urine. Pt ST rate 107-115. BP 103/54. OG tube draining small amount light, pink tinged secretions.
[2018-09-26] MEDS: MIDAZOLAM 2 MG/2 ML VIAL IV ×2 (00:52→02:47)
[2018-09-26] MEDS: ALBUTEROL 2.5 MG/3 ML NEB (ADULT) INH ×4 (00:54→09:52)
[2018-09-26] MEDS: PROPOFOL 1,000 MG/100 ML VIAL 23.496 MG IV ×2 (01:53→05:54)
[2018-09-26 02:40] LABS: Add Manual Diff / Slide Review NO; Basophils Absolute Auto 0 /uL (0-100); Basophils Percent Auto 0.3 % (0-2); Eosinophils Absolute Auto 0 /uL (0-450); Hematocrit 39.2 % (36-46); Hemoglobin 13.3 g/dL (12.0-16.0); Lymphocytes Absolute Auto 600 /uL (1100-4500); Lymphocytes Percent Auto 3.5 % (25-40); Mean Corpuscular HGB Conc 33.9 % (30-36); Mean Corpuscular Hemoglobin 29.8 PG (26-34); Mean Corpuscular Volume 87.9 fL (80-100); Monocytes Absolute Auto 300 /uL (0-900); Monocytes Percent Auto 1.6 % (3-14); Neutrophils Absolute Auto 15400 /uL (1500-7000); Neutrophils Percent Auto 94.6 % (50-75); Platelet Count 374 X10^3/uL (150-400); Red Blood Cell Count 4.46 X10^6/uL (4.0-5.2); Red Cell Distribution Width 14.4 % (11.6-14.8); White Blood Cell Count 16.3 X10^3/uL (4.5-11.0)
[2018-09-26 02:44] LABS: Lactate (Lactic Acid) 8.1 mmol/L (0.7-2.1)
[2018-09-26 02:45] LABS: BUN Creatinine Ratio 16.7 (6-22); Blood Urea Nitrogen 10 mg/dL (7-17); Calcium 8.6 mg/dL (8.4-10.2); Carbon Dioxide 17 mmol/L (22-32); Chloride 108 mmol/L (98-107); Estimated Glomerular Filt Rate > 60.0 mL/min (>60); Glucose 172 mg/dL (70-100); HEMOLYSIS < 15 (0-50); Potassium 4.5 mmol/L (3.4-5.1); Sodium 139 mmol/L (137-145)
[2018-09-26] MEDS: methylPREDNISolone 125 MG/2 ML VIAL 80 MG IV ×2 (02:46→10:30)
[2018-09-26 03:00] LABS: Procalcitonin < 0.05 ng/mL (<0.5)
[2018-09-26] MEDS: ALBUTEROL/IPRATROPIUM 3 ML AMPUL INH ×3 (03:26→13:10)
--- NOTE | 2018-09-26 03:52 | PM.EVENT ---
Date Patient Seen: 09/26/18 Time Patient Seen: 01:11 Whit Cohen is a 33-year-old female who presented to the ER today for an asthma exacerbation. The patient was treated in the ER with serial nebulizer treatments as well as steroids magnesium and BiPAP. Patient failed to respond and required intubation which was completed by anesthesia. Post intubation chest x-ray reviewed with ET tube in satisfactory position. Follow-up ABG at approximately 8:00 p.m. revealed a pH of 7.22, pCO2 of 51.6, PO2 of 92 and bicarb of 23 reflective of respiratory acidosis. Ventilator settings are optimized to reduce air trapping and end-tidal CO2 is trending down. Patient's blood pressure is stable remains somewhat tachycardic. Follow-up ABG ordered for tendinitis completed 1:00 a.m. revealing a pH of 7.24, pCO2 of 39, PO2 of 143 and a bicarb of 16.8 with a base excess of -11. On initial workup urinalysis identified probable UTI and urine is to be cultured. no other significant signs of infection were identified. additional follow-up included the patient subsequently had tox screen done which was positive for methamphetamine. Lactate was initially 1.0 is repeated and found to be 8.1. Procalcitonin is less than 0.05. The patient remains afebrile. Blood cultures are drawn and the patient started on Rocephin 2 g IV every 24 hours. She is also given normal saline bolus. Sepsis -the patient is immunocompromised taking prednisone 20-40 mg daily for asthma -patient is also positive for methamphetamine -urine is identified as likely source of infection, -will start on ceftriaxone 2 g daily -patient is already on steroid therapy -blood pressure is stable with MAP in the 80s -the patient has marginal urine output at 125 cc in approximately 6 hours, normal saline bolus initiated -will recheck ABG, follow procalcitonin and lactate. -blood and urine cultures pending, will adjust antibiotics as needed Critical care time: Over 40 minutes including review of data assessments evaluations, treatments and re-evaluations. -
[2018-09-26] MEDS: SODIUM CHLORIDE 0.9% 1,000 ML 1000 ML IV (04:12)
[2018-09-26] MEDS: CEFTRIAXONE 2 GM/50 ML FROZ.PIGGY IV (04:21)
[2018-09-26 04:53] LABS: Reflexed Lactate in 2 Hours Y
[2018-09-26 04:56] LABS: Lactate 2HR (Lactic Acid Rflx) 7.8 mmol/L (0.7-2.1)
[2018-09-26] MEDS: MIDAZOLAM 5 MG/5 ML VIAL 2 MG IV ×2 (05:07→07:15)
[2018-09-26 05:34] LABS: Fractionated Inspired Oxygen 30; HCO3 ABG 13 mmol/L (22-26); Oxygen Saturation ABG 98 % (95-100); PCO2 ABG 32.8 mmHg (35-45); PO2 ABG 124 mmHg (80-100); TCO2 ABG 14 mmol/L (21-31); pH ABG 7.21 (7.35-7.45)
[2018-09-26] MEDS: SODIUM CHLORIDE 0.9% 1,000 ML 100 ML IV (06:00)
[2018-09-26 07:32] LABS: Add Manual Diff / Slide Review NO; Basophils Absolute Auto 0 /uL (0-100); Basophils Percent Auto 0.1 % (0-2); Eosinophils Absolute Auto 0 /uL (0-450); Hematocrit 38.1 % (36-46); Hemoglobin 12.1 g/dL (12.0-16.0); Lymphocytes Absolute Auto 700 /uL (1100-4500); Lymphocytes Percent Auto 3.5 % (25-40); Mean Corpuscular HGB Conc 31.7 % (30-36); Mean Corpuscular Hemoglobin 28.8 PG (26-34); Mean Corpuscular Volume 90.8 fL (80-100); Monocytes Absolute Auto 600 /uL (0-900); Monocytes Percent Auto 3.2 % (3-14); Neutrophils Absolute Auto 17600 /uL (1500-7000); Neutrophils Percent Auto 93.2 % (50-75); Platelet Count 334 X10^3/uL (150-400); Red Cell Distribution Width 14.6 % (11.6-14.8); White Blood Cell Count 18.9 X10^3/uL (4.5-11.0)
[2018-09-26] MEDS: SODIUM CHLORIDE 0.9% 1,000 ML 125 ML IV (07:41)
[2018-09-26 07:45] LABS: Alanine Aminotransferase 9 IU/L (9-52); Albumin 3.6 g/dL (3.5-5.0); Albumin Globulin Ratio 1.4 (1.0-2.8); Alkaline Phosphatase 40 U/L (38-126); Aspartate Aminotransferase 16 IU/L (14-36); Blood Urea Nitrogen 9 mg/dL (7-17); Calcium 8.1 mg/dL (8.4-10.2); Carbon Dioxide 16 mmol/L (22-32); Chloride 111 mmol/L (98-107); Estimated Glomerular Filt Rate > 60.0 mL/min (>60); Globulin 2.6 g/dL (1.7-4.1); Glucose 164 mg/dL (70-100); HEMOLYSIS < 15 (0-50); Potassium 4.2 mmol/L (3.4-5.1); Sodium 139 mmol/L (137-145); Total Protein 6.2 g/dL (6.3-8.2)
[2018-09-26 07:55] LABS: Bilirubin Total < 0.1 mg/dL (0.2-1.3)
[2018-09-26] MEDS: ENOXAPARIN 40 MG/0.4 ML SYRINGE SUBCUT (09:38)
[2018-09-26] MEDS: FAMOTIDINE 20 MG/50 ML PIGGYBACK 50 MG IV (09:39)
[2018-09-26] MEDS: PROPOFOL 1,000 MG/100 ML VIAL 25.632 MG IV (09:39)
--- NOTE | 2018-09-26 11:32 | PC.NURSE ---
Addendum entered by Melinda Hickey R.N. 09/26/18 15:18: PT DISCHARGED AFTER DEMANDING TO LEAVE HOSPTIAL- SHE WALKED OUT BAREFOOTED AND DECLINED TO PUT SHOES ON- HER KEYS WERE DROPPED OFF BY HER MOTHER - AMBULATED TO EXIT - ATTEMPTED TO REVIEW RX WITH HER BUT SHE WAS UNWILLING TO LISTEN TO STAFF Original Note: Addendum entered by Melinda Hickey R.N. 09/26/18 14:30: pt medicated dearlier with 2mg iv lorazepam wihich was effective for her agitation- she does continue to plan to leave the hospital AMA but did allow 2nd dose of iv abx to be infused Original Note: pt extubated at 1030 am after 30 cpap trial- she is agitated and kicking at staff and pulling at restraints prior to extubation- her first words wer I HAVE A FUCKING DNR informed her there were no such papers or reports to determine that here at this facility- restraints removed and ivf continue at 125cc/h- she continues to act out of frustration in room by kicking and throwing items
[2018-09-26] MEDS: LORazepam 2 MG/ML SYRINGE IV (11:50)
[2018-09-26 11:59] LABS: Fractionated Inspired Oxygen 30; HCO3 ABG 17 mmol/L (22-26); Oxygen Saturation ABG 97 % (95-100); PCO2 ABG 41.3 mmHg (35-45); PO2 ABG 112 mmHg (80-100); TCO2 ABG 19 mmol/L (21-31); pH ABG 7.23 (7.35-7.45)
--- NOTE | 2018-09-26 13:27 | PM.PN.1 ---
Subjective Date Patient Seen: 09/26/18 Interval history: The patient is a 33-year-old female who was admitted yesterday for acute respiratory failure. The patient initially was on BiPAP and then required intubation. She has a history of asthma which is steroid dependent. In addition the patient has been using methamphetamines as well. This morning she underwent a spontaneous breathing trial. Should her acidosis continued however she had improvement of respiratory acidosis. The patient was successfully extubated without incident. Post extubation she was quite anxious and threatening to go home. She was given 2 mg of Ativan which improved her mood and her willingness to participate with treatment. Her urine cultures have been positive for gram-negative rods. She is being treated with ceftriaxone for urinary tract infection. The patient's lactate was markedly elevated at 8 this morning it is being repeated. Although anxious to patient breathing appears to have improved. Exam Vital Signs (past 8 hours): - 09/26/18 06:03 09/26/18 07:56 09/26/18 08:00 Temperature 98.1 F Pulse Rate 121 H 120 H 118 H Respiratory Rate 15 15 15 Blood Pressure 113/48 L 116/66 Pulse Oximetry 100 100 98 09/26/18 09:00 09/26/18 09:52 09/26/18 10:00 Temperature 98.8 F Pulse Rate 118 H 119 H 129 H Respiratory Rate 15 15 33 H Blood Pressure 107/60 Pulse Oximetry 95 98 09/26/18 11:00 Temperature Pulse Rate 132 H Respiratory Rate 19 Blood Pressure 117/62 Pulse Oximetry 97 Fraction of Inspired Oxygen 30 Oxygen Delivery Method Room Air Oxygen Flow Rate 6 Narrative Exam Narrative: Anxious agitated female Lungs: Decreased breath sounds with prolonged end-expiratory wheezing bilaterally. Cardiac exam: Tachycardic regular rate and rhythm normal S1-S2 Abdomen: Soft nontender nondistended Extremities: No edema Objective Labs Result Diagrams: 09/26/18 07:24 09/26/18 07:24 Labs: Laboratory Results - last 24 hr 09/25/18 09/25/18 09/25/18 01:04 14:15 14:15 WBC 17.5 H RBC 4.72 Hgb 13.8 Hct 41.8 MCV 88.7 MCH 29.2 MCHC 32.9 RDW 14.1 Plt Count 424 H Neut % (Auto) 72.7 Lymph % (Auto) 13.8 L Holt % (Auto) 6.6 Eos % (Auto) 6.2 H Baso % (Auto) 0.7 Neut # (Auto) 78076 H Lymph # (Auto) 2400 Holt # (Auto) 1200 H Eos # (Auto) 1100 H Baso # (Auto) 100 ABG pH 7.24 L* ABG pCO2 39.3 ABG pO2 143 H ABG HCO3 17 L ABG Total CO2 18 L ABG O2 Saturation 99 ABG Base Excess -11.0 L FiO2 30 Sodium 142 Potassium 3.6 Chloride 108 H Carbon Dioxide 25 BUN 12 Creatinine 0.70 Estimated GFR > 60.0 BUN/Creatinine Ratio 17.1 Glucose 109 H Lactate Calcium 8.7 Magnesium 2.1 Total Bilirubin AST ALT Alkaline Phosphatase Total Creatine Kinase 45 CK-MB (CK-2) TNP CK-MB (CK-2) Rel Index TNP Troponin I < 0.012 Total Protein Albumin Globulin Albumin/Globulin Ratio Procalcitonin HCG, Quant < 2.39 Urine Color Urine Appearance Urine pH Ur Specific [place] Urine Protein Urine Glucose (UA) Urine Ketones Urine Occult Blood Urine Nitrate Urine Bilirubin Urine Urobilinogen Ur Leukocyte Esterase Urine RBC Urine WBC Ur Squamous Epith Cells Urine Bacteria Ur Culture Indicated? Micro UA Comment Urine Test Nasal Screen MRSA (PCR) Urine Opiates Screen Ur Oxycodone Screen Urine Methadone Screen Ur Barbiturates Screen U Tricyclic Antidepress Ur Phencyclidine Scrn Ur Amphetamines Screen U Methamphetamines Scrn Ur MDMA Scrn (Ecstasy) U Benzodiazepines Scrn Urine Cocaine Screen U Marijuana (THC) Screen Influenza A & B (PCR) 09/25/18 09/25/18 09/25/18 14:42 15:00 16:02 WBC RBC Hgb Hct MCV MCH MCHC RDW Plt Count Neut % (Auto) Lymph % (Auto) Holt % (Auto) Eos % (Auto) Baso % (Auto) Neut # (Auto) Lymph # (Auto) Holt # (Auto) Eos # (Auto) Baso # (Auto) ABG pH 7.23 L* 7.24 L* ABG pCO2 59.2 H 57.4 H ABG pO2 254 H* 149 H ABG HCO3 25 25 ABG Total CO2 26 26 ABG O2 Saturation 100 99 ABG Base Excess -3.0 L -3.0 L FiO2 0.50 0.35 Sodium Potassium Chloride Carbon Dioxide BUN Creatinine Estimated GFR BUN/Creatinine Ratio Glucose Lactate 1.0 Calcium Magnesium Total Bilirubin AST ALT Alkaline Phosphatase Total Creatine Kinase CK-MB (CK-2) CK-MB (CK-2) Rel Index Troponin I Total Protein Albumin Globulin Albumin/Globulin Ratio Procalcitonin HCG, Quant Urine Color Urine Appearance Urine pH Ur Specific [place] Urine Protein Urine Glucose (UA) Urine Ketones Urine Occult Blood Urine Nitrate Urine Bilirubin Urine Urobilinogen Ur Leukocyte Esterase Urine RBC Urine WBC Ur Squamous Epith Cells Urine Bacteria Ur Culture Indicated? Micro UA Comment Urine Test Nasal Screen MRSA (PCR) Urine Opiates Screen Ur Oxycodone Screen Urine Methadone Screen Ur Barbiturates Screen U Tricyclic Antidepress Ur Phencyclidine Scrn Ur Amphetamines Screen U Methamphetamines Scrn Ur MDMA Scrn (Ecstasy) U Benzodiazepines Scrn Urine Cocaine Screen U Marijuana (THC) Screen Influenza A & B (PCR) 09/25/18 09/25/18 09/25/18 17:17 19:10 19:10 WBC RBC Hgb Hct MCV MCH MCHC RDW Plt Count Neut % (Auto) Lymph % (Auto) Holt % (Auto) Eos % (Auto) Baso % (Auto) Neut # (Auto) Lymph # (Auto) Holt # (Auto) Eos # (Auto) Baso # (Auto) ABG pH ABG pCO2 ABG pO2 ABG HCO3 ABG Total CO2 ABG O2 Saturation ABG Base Excess FiO2 Sodium Potassium Chloride Carbon Dioxide BUN Creatinine Estimated GFR BUN/Creatinine Ratio Glucose Lactate Calcium Magnesium Total Bilirubin AST ALT Alkaline Phosphatase Total Creatine Kinase CK-MB (CK-2) CK-MB (CK-2) Rel Index Troponin I Total Protein Albumin Globulin Albumin/Globulin Ratio Procalcitonin HCG, Quant Urine Color Yellow Urine Appearance Slightly cloudy Urine pH 5.5 Ur Specific [place] >=1.030 H Urine Protein Negative Urine Glucose (UA) Trace H Urine Ketones Negative Urine Occult Blood Trace-lysed Urine Nitrate Positive H Urine Bilirubin Negative Urine Urobilinogen 0.2 Ur Leukocyte Esterase Trace H Urine RBC None seen Urine WBC 0-1/hpf Ur Squamous Epith Cells 1-5 /hpf Urine Bacteria Many (>30) H Ur Culture Indicated? Specimen cultured Micro UA Comment . Urine Test Negative Nasal Screen MRSA (PCR) Positive for mrsa H Urine Opiates Screen Ur Oxycodone Screen Urine Methadone Screen Ur Barbiturates Screen U Tricyclic Antidepress Ur Phencyclidine Scrn Ur Amphetamines Screen U Methamphetamines Scrn Ur MDMA Scrn (Ecstasy) U Benzodiazepines Scrn Urine Cocaine Screen U Marijuana (THC) Screen Influenza A & B (PCR) 09/25/18 09/25/18 09/25/18 19:10 19:15 20:12 WBC RBC Hgb Hct MCV MCH MCHC RDW Plt Count Neut % (Auto) Lymph % (Auto) Holt % (Auto) Eos % (Auto) Baso % (Auto) Neut # (Auto) Lymph # (Auto) Holt # (Auto) Eos # (Auto) Baso # (Auto) ABG pH 7.22 L* ABG pCO2 51.6 H ABG pO2 92 ABG HCO3 21 L ABG Total CO2 23 ABG O2 Saturation 95 ABG Base Excess -6.0 L FiO2 30 Sodium Potassium Chloride Carbon Dioxide BUN Creatinine Estimated GFR BUN/Creatinine Ratio Glucose Lactate Calcium Magnesium Total Bilirubin AST ALT Alkaline Phosphatase Total Creatine Kinase CK-MB (CK-2) CK-MB (CK-2) Rel Index Troponin I Total Protein Albumin Globulin Albumin/Globulin Ratio Procalcitonin HCG, Quant Urine Color Urine Appearance Urine pH Ur Specific [place] Urine Protein Urine Glucose (UA) Urine Ketones Urine Occult Blood Urine Nitrate Urine Bilirubin Urine Urobilinogen Ur Leukocyte Esterase Urine RBC Urine WBC Ur Squamous Epith Cells Urine Bacteria Ur Culture Indicated? Micro UA Comment Urine Test Nasal Screen MRSA (PCR) Urine Opiates Screen Negative Ur Oxycodone Screen Negative Urine Methadone Screen Negative Ur Barbiturates Screen Negative U Tricyclic Antidepress Negative Ur Phencyclidine Scrn Negative Ur Amphetamines Screen Positive H U Methamphetamines Scrn Positive H Ur MDMA Scrn (Ecstasy) Negative U Benzodiazepines Scrn Negative Urine Cocaine Screen Negative U Marijuana (THC) Screen Negative Influenza A & B (PCR) Negative 09/26/18 09/26/18 09/26/18 02:15 02:15 02:15 WBC 16.3 H RBC 4.46 Hgb 13.3 Hct 39.2 MCV 87.9 MCH 29.8 MCHC 33.9 RDW 14.4 Plt Count 374 Neut % (Auto) 94.6 H D Lymph % (Auto) 3.5 L Holt % (Auto) 1.6 L Eos % (Auto) 0.0 L Baso % (Auto) 0.3 Neut # (Auto) 04819 H Lymph # (Auto) 600 L Holt # (Auto) 300 Eos # (Auto) 0 Baso # (Auto) 0 ABG pH ABG pCO2 ABG pO2 ABG HCO3 ABG Total CO2 ABG O2 Saturation ABG Base Excess FiO2 Sodium 139 Potassium 4.5 Chloride 108 H Carbon Dioxide 17 L BUN 10 Creatinine 0.60 Estimated GFR > 60.0 BUN/Creatinine Ratio 16.7 Glucose 172 H Lactate Calcium 8.6 Magnesium Total Bilirubin AST ALT Alkaline Phosphatase Total Creatine Kinase CK-MB (CK-2) CK-MB (CK-2) Rel Index Troponin I Total Protein Albumin Globulin Albumin/Globulin Ratio Procalcitonin < 0.05 HCG, Quant Urine Color Urine Appearance Urine pH Ur Specific [place] Urine Protein Urine Glucose (UA) Urine Ketones Urine Occult Blood Urine Nitrate Urine Bilirubin Urine Urobilinogen Ur Leukocyte Esterase Urine RBC Urine WBC Ur Squamous Epith Cells Urine Bacteria Ur Culture Indicated? Micro UA Comment Urine Test Nasal Screen MRSA (PCR) Urine Opiates Screen Ur Oxycodone Screen Urine Methadone Screen Ur Barbiturates Screen U Tricyclic Antidepress Ur Phencyclidine Scrn Ur Amphetamines Screen U Methamphetamines Scrn Ur MDMA Scrn (Ecstasy) U Benzodiazepines Scrn Urine Cocaine Screen U Marijuana (THC) Screen Influenza A & B (PCR) 09/26/18 09/26/18 09/26/18 02:15 04:15 05:16 WBC RBC Hgb Hct MCV MCH MCHC RDW Plt Count Neut % (Auto) Lymph % (Auto) [place] % (Auto) Eos % (Auto) Baso % (Auto) Neut # (Auto) Lymph # (Auto) Holt # (Auto) Eos # (Auto) Baso # (Auto) ABG pH 7.21 L* ABG pCO2 32.8 L ABG pO2 124 H ABG HCO3 13 L ABG Total CO2 14 L ABG O2 Saturation 98 ABG Base Excess -15.0 L FiO2 30 Sodium Potassium Chloride Carbon Dioxide BUN Creatinine Estimated GFR BUN/Creatinine Ratio Glucose Lactate 8.1 H 7.8 H Calcium Magnesium Total Bilirubin AST ALT Alkaline Phosphatase Total Creatine Kinase CK-MB (CK-2) CK-MB (CK-2) Rel Index Troponin I Total Protein Albumin Globulin Albumin/Globulin Ratio Procalcitonin HCG, Quant Urine Color Urine Appearance Urine pH Ur Specific [place] Urine Protein Urine Glucose (UA) Urine Ketones Urine Occult Blood Urine Nitrate Urine Bilirubin Urine Urobilinogen Ur Leukocyte Esterase Urine RBC Urine WBC Ur Squamous Epith Cells Urine Bacteria Ur Culture Indicated? Micro UA Comment Urine Test Nasal Screen MRSA (PCR) Urine Opiates Screen Ur Oxycodone Screen Urine Methadone Screen Ur Barbiturates Screen U Tricyclic Antidepress Ur Phencyclidine Scrn Ur Amphetamines Screen U Methamphetamines Scrn Ur MDMA Scrn (Ecstasy) U Benzodiazepines Scrn Urine Cocaine Screen U Marijuana (THC) Screen Influenza A & B (PCR) 09/26/18 09/26/18 09/26/18 07:24 07:24 10:19 WBC 18.9 H RBC 4.20 Hgb 12.1 Hct 38.1 MCV 90.8 MCH 28.8 MCHC 31.7 RDW 14.6 Plt Count 334 Neut % (Auto) 93.2 H Lymph % (Auto) 3.5 L Holt % (Auto) 3.2 Eos % (Auto) 0.0 L Baso % (Auto) 0.1 Neut # (Auto) 92291 H Lymph # (Auto) 700 L Holt # (Auto) 600 Eos # (Auto) 0 Baso # (Auto) 0 ABG pH 7.23 L* ABG pCO2 41.3 ABG pO2 112 H ABG HCO3 17 L ABG Total CO2 19 L ABG O2 Saturation 97 ABG Base Excess -10.0 L FiO2 30 Sodium 139 Potassium 4.2 Chloride 111 H Carbon Dioxide 16 L BUN 9 Creatinine 0.60 Estimated GFR > 60.0 BUN/Creatinine Ratio 15.0 Glucose 164 H Lactate Calcium 8.1 L Magnesium Total Bilirubin < 0.1 L AST 16 ALT 9 Alkaline Phosphatase 40 Total Creatine Kinase CK-MB (CK-2) CK-MB (CK-2) Rel Index Troponin I Total Protein 6.2 L Albumin 3.6 Globulin 2.6 Albumin/Globulin Ratio 1.4 Procalcitonin HCG, Quant Urine Color Urine Appearance Urine pH Ur Specific [place] Urine Protein Urine Glucose (UA) Urine Ketones Urine Occult Blood Urine Nitrate Urine Bilirubin Urine Urobilinogen Ur Leukocyte Esterase Urine RBC Urine WBC Ur Squamous Epith Cells Urine Bacteria Ur Culture Indicated? Micro UA Comment Urine Test Nasal Screen MRSA (PCR) Urine Opiates Screen Ur Oxycodone Screen Urine Methadone Screen Ur Barbiturates Screen U Tricyclic Antidepress Ur Phencyclidine Scrn Ur Amphetamines Screen U Methamphetamines Scrn Ur MDMA Scrn (Ecstasy) U Benzodiazepines Scrn Urine Cocaine Screen U Marijuana (THC) Screen Influenza A & B (PCR) Assessment & Plan (1) Acute respiratory failure with hypercapnia: Problem details: Patient presented with acute respiratory failure that progressed from BiPAP to intubation yesterday. This was present on admission. Most likely related to her underlying asthma. She was successfully extubated today. She will be switched to oral prednisone. Will continue albuterol. Will add a budesonide inhaler. Will obtain a respiratory panel. Her influenza is negative thus far. Chest x-ray is negative. Current visit: Yes Status: Acute (2) Asthma with acute exacerbation: Problem details: Acute on chronic asthma exacerbation, present on admission. Will continue nebulizers, budesonide and prednisone. Current visit: Yes Status: Acute (3) Depression: Problem details: Depression/anxiety, chronic Current visit: No Status: None (4) Metabolic acidosis: Problem details: Metabolic acidosis, etiology unclear, question ingestion of isopropyl alcohol or other substances. Will repeat her lactate and electrolytes. Will continue IV hydration and consider IV bicarbonate if needed Current visit: Yes Status: Acute (5) Severe sepsis: Problem details: Severe sepsis, present on admission, improved will follow up on her lactate and adjust IV fluids as needed. No evidence of hypotension. Urinary tract infection with known gram-negative rods. Will continue her on ceftriaxone. Current visit: Yes Status: Acute Quality VTE Deep Vein Thrombosis/Pulmonary Embolism Present on Admission: No
[2018-09-26 13:40] LABS: HEMOLYSIS < 15 (0-50); Potassium 3.7 mmol/L (3.4-5.1)
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
[2018-09-26 15:00] LABS: Lactate (Lactic Acid) 2.3 mmol/L (0.7-2.1)
--- NOTE | 2018-09-26 15:33 | CM.DANOTE ---
DCP/Assessment: Reviewed chart. Patient is a 33yr old female admitted to [facility] with acute respiratory difficulty. Patient with h/o chronic poorly controlled asthma, steroid dependent, current smoker. No PCP listed Primary payor is 1)[facility] [employer] Options 2)Medicaid. Patient requiring intubation in the ED due to respiratory rate and severe distress. Patient remains intubated this AM when ASSEMBLIES AND INSTALLATIONS INSPECTOR visited Met with patient's Mother/Jhoana and grandmother/Mary at bedside. Patient appears restless on vent and RN provided her with medication for restlessness. Mother reports that patient does not live in [place]. Patient coming to visit her Mother and Grandmother for [facility]. Mother reports that she knows very little about what patient has been doing because she has not seen her in awhile(exact amount of time unknown)? Patient with history of methamphetamine use. Mother believes patient has been staying down in [facility] but unsure if she is homeless or not. Due to the status of patient, ASSEMBLIES AND INSTALLATIONS INSPECTOR provided Mother with ASSEMBLIES AND INSTALLATIONS INSPECTOR name and number and reported to family that CM team would interview/assess patient for needs when medically appropriate. Family appreciative. P: Follow closely. DALLAS Watson Discharge Planning/Care Management CM Discharge Assessment Start: 09/26/18 15:26 Freq: Status: Discharge Protocol: Document 09/26/18 15:29 KJS (Rec: 09/26/18 15:33 [id number]) Discharge Planning Assessment Assigned Farm Implement Engine Mechanic DALLAS Watson Contact Information Jhoana (Mother) [phone] Advance Directives? No History Provided By Family Member Parents Medical Record Comment Unclear if patient is homeless Comment Unknown Independent with ADL's Yes Is patient alert and oriented? No: Currently on vent Caregiver for Another No Comment Pending outcome of hospitalization. Whiteboard Updated in Patient Room with Yes name and ext. # of Farm Implement Engine Mechanic Review Status In Process Next Review Type Continued Stay Review
[2018-09-26 16:33] LABS: Reflexed Lactate in 2 Hours Y
[2018-09-27 15:56] LABS: PCO2 ABG 39.3 mmHg (35-45); PO2 ABG 143 mmHg (80-100); pH ABG 7.24 (7.35-7.45)
[2018-09-27 15:57] LABS: HCO3 ABG 17 mmol/L (22-26)
[2018-09-27 15:58] LABS: TCO2 ABG 18 mmol/L (21-31)
[2018-09-27 15:59] LABS: Oxygen Saturation ABG 99 % (95-100)
== END 2018-09-26 15:23 | disposition home or self-care (01) | DRG 133 ==
LOC: ED 15:30 → AC 16:22 → ICU 16:47
PROVIDERS: Internal Medicine; Nurse Practitioner Adult Health; Admitting Provider Internal Medicine; Emergency Provider Emergency Medicine; Visit Provider Internal Medicine
DX: J96.02 Acute respiratory failure with hypercapnia (principal); J45.902 Unspecified asthma with status asthmaticus; E87.2 Acidosis; J45.901 Unspecified asthma with (acute) exacerbation; D72.829 Elevated white blood cell count, unspecified; Z79.52 Long term (current) use of systemic steroids; F17.210 Nicotine dependence, cigarettes, uncomplicated; F41.9 Anxiety disorder, unspecified; F32.9 Major depressive disorder, single episode, unspecified; F15.10 Other stimulant abuse, uncomplicated; Z91.14 Patient's other noncompliance with medication regimen
CPT/HCPCS: 36415; 36591; 36600; 71045; 80048; 80053; 80305; 81001; 81025; 82550; 82805; 83605; 83735; 84132; 84145; 84484; 84702; 85025; 87040; 87070; 87077; 87086; 87186; 87205; 87400; 87797; 94002; 94003; 94150; 94640; 94660; 94770; 94799; 96365; 96366; 96375; 99283; 99291; 99292; J0330; J0696; J1650; J2060; J2250; J2270; J2704; J2930; J3010; J7613